=== PATIENT | male | born 1955 | race African-American/Black ===

== ENCOUNTER 2016-11-29 07:42 | Inpatient (IN) | payer OTHER ==
[~2016-11-29] VITALS: Ht 182.9 cm; Wt 79.1 kg
--- NOTE | 2016-11-29 08:06 | PHYS DOC ---
Past Medical History Past Medical History: A-Fib, CHF, Hypertension Adult General Chief Complaint Chief Complaint: SHORTNESS OF BREATH HPI HPI Patient is a 61 year old who presents emergency department stating that he's been having shortness of air for the last 2 weeks. He states that he did see Dr. Rodriguez in regards to shortness of air. He states that he was told if the shortness of air became worse to come to the emergency department. Patient states he also feels as though his heart is irregular. He states that he has a history of A. fib that has a pacemaker and defibrillator. Patient also states he has a history of congestive heart failure. He does state that he's had swelling in his lower extremities he is unsure of his had a weight gain as he does not want to wait. Patient denies fever, chills or any nausea vomiting. Patient states she just feels that he cannot get a deep breath. He states that he is unable to walk more than 3 feet without having increased shortness of air. Patient is able to talk in 3-4 word sentences. Review of Systems Review of Systems Constitutional: Denies fever or chills [] Eyes: Denies change in visual acuity, redness, or eye pain [] HENT: Denies nasal congestion or sore throat [] Respiratory: Denies cough C/o shortness of breath [] Cardiovascular: No additional information not addressed in HPI [] GI: Denies abdominal pain, nausea, vomiting, bloody stools or diarrhea [] : Denies dysuria or hematuria [] Musculoskeletal: Denies back pain or joint pain [] Integument: Denies rash or skin lesions [] Neurologic: Denies headache, focal weakness or sensory changes [] Current Medications Current Medications Current Medications Medications (Trade) Dose Ordered Sig/David Start Time Stop Time Status Last Admin Dose Admin Albuterol/ Ipratropium (Duoneb) 3 ml 1X ONCE 11/29/16 08:30 11/29/16 08:31 DC Furosemide (Lasix) 40 mg 1X ONCE 11/29/16 09:15 11/29/16 09:16 DC 11/29/16 09:44 40 MG Methylprednisolone Sodium Succinate (Solu-Medrol 125mg Vial) 125 mg 1X ONCE 11/29/16 09:30 11/29/16 09:31 DC 11/29/16 09:44 125 MG Allergies Allergies Allergies Coded Allergies Type Severity Reaction Last Updated Verified No Known Drug Allergies 11/29/16 No Physical Exam Physical Exam Constitutional: Well developed, well nourished, no acute distress, non-toxic appearance. [] HENT: Normocephalic, atraumatic, bilateral external ears normal, oropharynx moist, no oral exudates, nose normal. [] Eyes: PERRLA, EOMI, conjunctiva normal, no discharge. [] Neck: Normal range of motion, no tenderness, supple, no stridor. [] Cardiovascular:Heart rate regular rhythm, no murmur [] Lungs & Thorax: Bilateral breath sounds decreased bilateral lower lobes with wheezes noted in mid lungs Abdomen: Bowel sounds normal, soft, no tenderness, no masses, no pulsatile masses. [] Skin: Warm, dry, no erythema, no rash. [] Back: No tenderness Extremities: No tenderness, no cyanosis, no clubbing, ROM intact. Peripheral pulses 2+ cap refill brisk < 2 seconds, no edema noted in lower extremities Neurologic: Alert and oriented X 3, normal motor function, normal sensory function, no focal deficits noted. [] Psychologic: Affect normal, judgement normal, mood normal. [] Current Patient Data Vital Signs Vital Signs Date Time Temp Pulse Resp B/P Pulse Ox O2 Delivery O2 Flow Rate FiO2 11/29/16 09:00 98 20 134/83 94 Room Air 11/29/16 07:55 97.3 97.3 Lab Values Laboratory Tests Test 11/29/16 08:12 White Blood Count 8.4x10^3/uL (4.0-11.0) Red Blood Count 5.12x10^6/uL (4.30-5.70) Hemoglobin 16.3g/dL (13.0-17.5) Hematocrit 50.5% (39.0-53.0) Mean Corpuscular Volume 99fL (79-100) Mean Corpuscular Hemoglobin 32pg (25-35) Mean Corpuscular Hemoglobin Concent 32g/dL (31-37) Red Cell Distribution Width 14.3% (11.5-14.5) Platelet Count 237x10^3/uL (140-400) Neutrophils (%) (Auto) 69% (31-73) Lymphocytes (%) (Auto) 19% (24-48) L Monocytes (%) (Auto) 8% (0-9) Eosinophils (%) (Auto) 4% (0-3) H Basophils (%) (Auto) 1% (0-3) Neutrophils # (Auto) 5.8x10^3uL (1.8-7.7) Lymphocytes # (Auto) 1.6x10^3/uL (1.0-4.8) Monocytes # (Auto) 0.6x10^3/uL (0.0-1.1) Eosinophils # (Auto) 0.3x10^3/uL (0.0-0.7) Basophils # (Auto) 0.1x10^3/uL (0.0-0.2) Sodium Level 143mmol/L (136-145) Potassium Level 4.3mmol/L (3.5-5.1) Chloride Level 105mmol/L (98-107) Carbon Dioxide Level 30mmol/L (21-32) Anion Gap 8 (6-14) Blood Urea Nitrogen 19mg/dL (8-26) Creatinine 1.4mg/dL (0.7-1.3) H Estimated GFR (Cockcroft-Gault) 51.9 BUN/Creatinine Ratio 14 (6-20) Glucose Level 121mg/dL (70-99) H Calcium Level 9.4mg/dL (8.5-10.1) Total Bilirubin 1.2mg/dL (0.2-1.0) H Aspartate Amino Transferase (AST) 27U/L (15-37) Alanine Aminotransferase (ALT) 32U/L (16-63) Alkaline Phosphatase 107U/L (46-116) Creatine Kinase 228U/L (39-308) Creatine Kinase MB (Mass) 2.8ng/mL (0.0-3.6) Creatine Kinase MB Relative Index 1.2% (0-4) Troponin I Quantitative 0.031ng/mL (0.000-0.055) LN-Rqh-O-Type Natriuretic Peptide 3383pg/mL (0-124) H Total Protein 7.8g/dL (6.4-8.2) Albumin 3.6g/dL (3.4-5.0) Albumin/Globulin Ratio 0.9 (1.0-1.7) L Laboratory Tests 11/29/16 08:12 Laboratory Tests 11/29/16 08:12 EKG EKG EKG completed at 0805 with SR noted with LVH, no STEMI per Dr Rivers[] Radiology/Procedures Radiology/Procedures [] Course & Med Decision Making Course & Med Decision Making Pertinent Labs and Imaging studies reviewed. (See chart for details) CXR results with cardiomegaly, CMP with slightly elevated creat 1.4 BNP 3383. 0915 Spoke with Kena GROVER for Dr Cummings who agrees with lasix [address] Henry in regards to admission recommendations for solu medrol. 0935 patient's breath sounds continued to have wheezes although slightly decreased. Spoke with patient and family in regards to DNR status. He would prefer not to be put on any type of the ventilator devices. They do state that they would like to have CPR well as well as they are capable of getting him back. [] Dragon Disclaimer Dragon Disclaimer This electronic medical record was generated, in whole or in part, using a voice recognition dictation system. Departure Departure Impression: Primary Impression: Dyspnea Disposition: ADMITTED INPATIENT Admitting Physician: Phillip Henry (also spoke with Kena GROVER for Dr Cummings) Condition: STABLE Referrals: CHARISSE LEE ETIQUETTE TEACHER (PCP) IRMA LUND NP Nov 29, 2016 08:06
[2016-11-29 08:21] LABS: BASO # 0.1 x10^3/uL (0.0-0.2); BASO % 1 % (0-3); EOS % 4 % (0-3); HEMATOCRIT 50.5 % (39.0-53.0); HEMOGLOBIN 16.3 g/dL (13.0-17.5); LYMPH # 1.6 x10^3/uL (1.0-4.8); LYMPH % 19 % (24-48); MEAN CORPUSCULAR HEMOGLOBIN 32 pg (25-35); MEAN CORPUSCULAR HGB CONC 32 g/dL (31-37); MEAN CORPUSCULAR VOLUME 99 fL (79-100); MONO % 8 % (0-9); NEUT % 69 % (31-73); PLATELET COUNT 237 x10^3/uL (140-400); RED BLOOD COUNT 5.12 x10^6/uL (4.30-5.70); RED CELL DISTRIBUTION WIDTH 14.3 % (11.5-14.5); WHITE BLOOD COUNT 8.4 x10^3/uL (4.0-11.0)
[2016-11-29 08:29] LABS: CALCIUM 9.4 mg/dL (8.5-10.1); CREATININE 1.4 mg/dL (0.7-1.3); GFR 51.9; POTASSIUM 4.3 mmol/L (3.5-5.1)
[2016-11-29] MEDS ORDERED: IPRATRPIUM/ALBUTEROL 0.5/2.5MG 3 ML NEBU. NEB ONE (08:30)
[2016-11-29 08:35] LABS: ALBUMIN 3.6 g/dL (3.4-5.0); ALBUMIN/GLOBULIN RATIO 0.9 (1.0-1.7); TOTAL BILIRUBIN 1.2 mg/dL (0.2-1.0); TOTAL PROTEIN 7.8 g/dL (6.4-8.2)
[2016-11-29 08:43] LABS: CKMB INDEX 1.2 % (0-4); CKMB MASS 2.8 ng/mL (0.0-3.6)
--- NOTE | 2016-11-29 08:58 | EKG ---
[facility] [address] [place] [address] Test Date: 2016-11-29 Test Time: 08:05:47 Pat Name: ALEXIA ELLIOTT Department: Room: Gender: M Nut [employer]pper: : 1955 Requested By: IRMA LUND Order Number: [id number] Reading MD: Mukesh Angel Measurements Intervals [place] Rate: 91 P: -2 AK: 120 QRS: -21 QRSD: 94 T: 68 QT: 388 QTc: 479 Interpretive Statements SINUS RHYTHM VENTRICULAR PREMATURE COMPLEX(ES) LEFT ATRIAL ABNORMALITY LEFTWARD AXIS CONSIDER LEFT VENTRICULAR HYPERTROPHY QRS(T) CONTOUR ABNORMALITY CONSIDER ANTEROSEPTAL MYOCARDIAL DAMAGE PROLONGED QT RI6.01 Unconfirmed report No previous ECG available for comparison Electronically Signed On 12-04-2016 13:34:03 RUBBER TESTER by Mukesh Angel
--- NOTE | 2016-11-29 09:03 | RAD ---
Portable chest, 11/29/2016: History: Shortness of breath, dyspnea A left-sided transvenous pacemaker is in place with 2 leads extending into the right heart. The heart is mildly enlarged. The pulmonary vascularity is within normal limits. No pulmonary infiltrate is seen. There is no evidence of pleural fluid. A surgical screw is projected over the coracoid region of the left scapula. IMPRESSION: 1. Mild cardiomegaly. 2. No acute abnormality is detected.
[2016-11-29] MEDS ORDERED: FUROSEMIDE 40 MG/4 ML VIAL IVP ONE (09:15)
[2016-11-29] MEDS ORDERED: methylPREDNISolone SOD SUCC PF 125 MG/2 ML VIAL. IV ONE (09:30)
--- NOTE | 2016-11-29 10:00 | PDOC2 ---
CARDIAC CONSULT DATE OF CONSULT Date of Consult DATE: 11/29/16 TIME: 09:50 REASON FOR CONSULT Reason for Consult: dyspnea, hx CHF, hx AFIB REFERRING PHYSICIAN Referring Physician: Dr. Conner SOURCE Source: Chart review, Patient HISTORY OF PRESENT ILLNESS HISTORY OF PRESENT ILLNESS This is a 61 yo male, with history of nonischemic cardiomyopathy s/p AICD implantation, who presented with complaints of shortness of breath x 1 week. Associated with cough and orthopnea. Denies any palpitations, dizziness, diaphoresis, LE edema, or recent illness/fevers. Patient was recently seen in our office with complaints of SOA; Lasix and potassium were increased. Patient reports symptoms persisted. Worse over last 24hrs. Contacted office; referred to ED. Also c/o left chest "burning" with ambulation- feels like he cath take a deep breath. Resolves with rest. These symptoms have been occurring over the last month. H/o lung CA s/p radiation therapy. Follows with [facility]. PAST MEDICAL HISTORY Cardiovascular: AFIB, CAD, CHF, HTN, Hyperlipidemia, Other (NICM s/p AICD) Pulmonary: COPD, Other (lung CA) CENTRAL NERVOUS SYSTEM: Other (traumatic brain injury ) GI: GERD Heme/Onc: No pertinent hx, Other (DVT) Hepatobiliary: No pertinent hx Psych: Anxiety, Depression, Other (PTSD) Musculoskeletal: Osteoarthritis Infectious disease: No pertinent hx ENT: No pertinent hx Renal/: Chronic renal insuff Endocrine: Diabetes Dermatology: No pertinent hx PAST SURGICAL HISTORY Past Surgical History Hernia Repair, Tonsillectomy, Other (septoplasty; left shoulder surgery; cardiac cath) FAMILY HISTORY Family History: Heart Disease, Hypertension SOCIAL HISTORY Smoke: Quit (last year ) ALCOHOL: none Drugs: None Lives: with Family CURRENT MEDICATIONS CURRENT MEDICATIONS Current Medications Medications (Trade) Dose Ordered Sig/David Route PRN Reason Start Time Stop Time Status Last Admin Dose Admin Furosemide (Lasix) 40 mg 1X ONCE IVP 11/29/16 09:15 11/29/16 09:16 DC 11/29/16 09:44 Methylprednisolone Sodium Succinate (Solu-Medrol 125mg Vial) 125 mg 1X ONCE IV 11/29/16 09:30 11/29/16 09:31 DC 11/29/16 09:44 ALLERGIES ALLERGIES: Coded Allergies: No Known Drug Allergies (Unverified , 3/1/17) ROS Review of System 14 point ROS conducted with pertinent positives noted above in HPI. PHYSICAL EXAM General: Alert, Oriented X3, Cooperative, mild distress, Other (poor dentition ) HEENT: Atraumatic, Mucous membr. moist/pink Lungs: Other (expiratory wheezes) Heart: Regular rate, Normal S1, Normal S2 Abdomen: Soft, No tenderness Extremities: No cyanosis, No edema, Normal pulses Skin: No breakdown, No significant lesion Neuro: Normal speech, Sensation intact Psych/Mental Status: Mental status NL, Other (flat affect ) MUSCULOSKELETAL: Osteoarthritic changes both hands VITALS VITALS Vital Signs Date Time Temp Pulse Resp B/P Pulse Ox O2 Delivery O2 Flow Rate FiO2 11/29/16 09:00 98 20 134/83 94 Room Air 11/29/16 07:55 97.3 97.3 LABS Lab: Laboratory Tests Test 11/29/16 08:12 White Blood Count 8.4x10^3/uL (4.0-11.0) Red Blood Count 5.12x10^6/uL (4.30-5.70) Hemoglobin 16.3g/dL (13.0-17.5) Hematocrit 50.5% (39.0-53.0) Mean Corpuscular Volume 99fL (79-100) Mean Corpuscular Hemoglobin 32pg (25-35) Mean Corpuscular Hemoglobin Concent 32g/dL (31-37) Red Cell Distribution Width 14.3% (11.5-14.5) Platelet Count 237x10^3/uL (140-400) Neutrophils (%) (Auto) 69% (31-73) Lymphocytes (%) (Auto) 19% (24-48) Monocytes (%) (Auto) 8% (0-9) Eosinophils (%) (Auto) 4% (0-3) Basophils (%) (Auto) 1% (0-3) Neutrophils # (Auto) 5.8x10^3uL (1.8-7.7) Lymphocytes # (Auto) 1.6x10^3/uL (1.0-4.8) Monocytes # (Auto) 0.6x10^3/uL (0.0-1.1) Eosinophils # (Auto) 0.3x10^3/uL (0.0-0.7) Basophils # (Auto) 0.1x10^3/uL (0.0-0.2) Sodium Level 143mmol/L (136-145) Potassium Level 4.3mmol/L (3.5-5.1) Chloride Level 105mmol/L (98-107) Carbon Dioxide Level 30mmol/L (21-32) Anion Gap 8 (6-14) Blood Urea Nitrogen 19mg/dL (8-26) Creatinine 1.4mg/dL (0.7-1.3) Estimated GFR (Cockcroft-Gault) 51.9 BUN/Creatinine Ratio 14 (6-20) Glucose Level 121mg/dL (70-99) Calcium Level 9.4mg/dL (8.5-10.1) Total Bilirubin 1.2mg/dL (0.2-1.0) Aspartate Amino Transf (AST/SGOT) 27U/L (15-37) Alanine Aminotransferase (ALT/SGPT) 32U/L (16-63) Alkaline Phosphatase 107U/L (46-116) Creatine Kinase 228U/L (39-308) Creatine Kinase MB (Mass) 2.8ng/mL (0.0-3.6) Creatine Kinase MB Relative Index 1.2% (0-4) Troponin I Quantitative 0.031ng/mL (0.000-0.055) UJ-Izo-I-Type Natriuretic Peptide 3383pg/mL (0-124) Total Protein 7.8g/dL (6.4-8.2) Albumin 3.6g/dL (3.4-5.0) Albumin/Globulin Ratio 0.9 (1.0-1.7) ECHOCARDIOGRAM ECHOCARDIOGRAM <Conclusion> Moderate to severe global left ventricular systolic dysfunction. The Ejection Fraction is estimated at 25%. Doppler and Color Flow revealed mild aortic regurgitation. Doppler and Color-flow revealed mild mitral regurgitation. Doppler and Color Flow revealed trace tricuspid regurgitation. The PA pressure was estimated at 35 mmHg. There is no evidence of significant pericardial effusion. DATE: 03/16/15 968 ASSESSMENT/PLAN ASSESSMENT/PLAN 1. Acute on chronic systolic heart failure NT Pro BNP elevated. CXR with cardiomegaly; no significant fluid accumulation IV lasix given in ED. Continue diuresis with monitoring of labs 2. Acute respiratory failure with COPD recommend pulmonary consult 3. Chest Pain, with typical and atypical features initial trop negative- continue with series ASA, check lipids given exertional symptoms, could consider for MPI when acute issues resolve 4. Non ischemic cardiomyopathy s/p AICD recent device check with normal function 03/2015 echo- EF 25%. Add Coreg for optimization. Consider ADDI will repeat echo 5. AFIB maintaining SR ASA for stroke prophylaxis 6. Hyperlipidemia check lipids continue statin 7. Hypertension controlled 8. CAD non-obstruction CAD per cath 2013 9. Lung CA s/p radiation therapy 10. CKD Problems: DOMONIQUE AVILEZ APRN Nov 29, 2016 10:00
[2016-11-29 10:51] VITALS: BP 124/83
[2016-11-29 11:00] VITALS: BP 124/83
[2016-11-29] MEDS ORDERED: OXYC1TAB9 PO (11:32)
[2016-11-29] MEDS ORDERED: FURO20TA3 PO (11:32)
[2016-11-29] MEDS ORDERED: FLUT9.9S NS (11:32)
[2016-11-29] MEDS ORDERED: ISOS30TA4 PO (11:32)
[2016-11-29] MEDS ORDERED: OXYC20TA34 PO (11:32)
[2016-11-29] MEDS ORDERED: OMEP20TA63 PO (13:13)
[2016-11-29] MEDS ORDERED: OXYC-316 PO (13:13)
[2016-11-29] MEDS ORDERED: TIZA4TAB PO (13:13)
[2016-11-29] MEDS ORDERED: ATOR10TA PO (13:13)
[2016-11-29] MEDS ORDERED: POTA10CA PO (13:13)
[2016-11-29] MEDS ORDERED: BREO ELLIPTA 21 EACH IH (13:13)
[2016-11-29] MEDS ORDERED: NITR0.4T SL (13:13)
[2016-11-29] MEDS ORDERED: ALBU2.5V14 NEB (13:13)
[2016-11-29] MEDS ORDERED: PROM6.25 PO (13:13)
[2016-11-29] MEDS ORDERED: OLAN20TA3 PO (13:13)
[2016-11-29] MEDS ORDERED: ASPI-482 PO (13:13)
[2016-11-29] MEDS ORDERED: VALIUM10 MG PO (13:13)
[2016-11-29] MEDS ORDERED: PREG150C PO (13:13)
[2016-11-29] MEDS: IPRATRPIUM/ALBUTEROL 0.5/2.5MG 3 ML NEBU. NEB SCH ×3 (13:39→23:37)
[2016-11-29] MEDS: ENOXAPARIN 40 MG/0.4 ML DISP.SYRIN. SQ SCH (14:04)
[2016-11-29 14:39] VITALS: BP 116/75
[2016-11-29] MEDS: ASPIRIN ENTERIC COATED 81 MG TABLET.DR. PO SCH (16:36)
[2016-11-29] MEDS: CARVEDILOL 3.125 MG TABLET PO SCH (16:36)
[2016-11-29] MEDS: OXYCODONE/APAP 7.5/325 TABLET. PO SCH ×2 (16:36→23:46)
[2016-11-29] MEDS: ISOSORBIDE MONONITRATE ER 30 MG TAB.ER.24H PO SCH (16:36)
[2016-11-29] MEDS ORDERED: OXYC10TA PO (16:41)
--- NOTE | 2016-11-29 16:43 | CARD ---
APPROVED REPORT EXAM: Two-dimensional and M-mode echocardiogram with Doppler and color Doppler. Other Information Quality : Average Rhythm : Pacemaker INDICATION Congestive Heart Failure 2D DIMENSIONS RVDd2.9 (2.9-3.5cm)Left Atrium(2D)4.6 (1.6-4.0cm) IVSd1.0 (0.7-1.1cm)Aortic Root(2D)3.1 (2.0-3.7cm) LVDd7.1 (3.9-5.9cm)LVOT Diameter2.2 (1.8-2.4cm) PWd1.0 (0.7-1.1cm)LVDs5.9 (2.5-4.0cm) SV90.8 ml Aortic Valve AoV Peak Siva.135.5cm/sAoV VTI20.4cm AO Peak GR.7.3mmHgLVOT Peak Siva.77.9cm/s LVOT VTI 13.87cmAO Mean GR.4mmHg FELECIA (VMAX)2.01zy8NAB (VTI)2.55cm2 Mitral Valve MV E Tswgywed47.6cm/sMV DECEL [id number] MV A Agvsgdoo49.2cm/sMV E Mean Gr.2mmHg MV ZPN47jkV/A Ratio1.3 MV A Ularjfdl412ftEIY (PHT)4.82cm2 TDI E/Lateral E'20.7E/Medial E'21.1 Pulmonary Valve PV Peak Webrbnav24.6cm/sPV Peak Grad.3mmHg RVOT VTI11.7cm Tricuspid Valve TR P. Ormahghj210fl/sRAP XTBQPDIX1evQp TR Peak Gr.80xjVfXLTC79ydFs Pulmonary Vein S1 Hazcnxjc84.5cm/sD2 Lgrljxxs17.2cm/s LEFT VENTRICLE The Left Ventricle is moderately dilated. There is normal left ventricular wall thickness. Left ventr icle systolic function is severely impaired. The Ejection Fraction is 20-25%. There is global hypokin esis of the left ventricle. Transmitral Doppler flow pattern is Grade II-pseudonormal filling dynamic s. RIGHT VENTRICLE The right ventricle is normal size. The right ventricular systolic function is normal. There is a pac emaker/ICD lead seen in the RV/RA. ATRIA The left atrium is mildly dilated. The right atrium size is normal. The interatrial septum is intact with no evidence for an atrial septal defect or patent foramen ovale as noted on 2-D or Doppler imagi ng. AORTIC VALVE The aortic valve is normal in structure and function. The aortic valve is trileaflet. Doppler and Col or Flow revealed no significant aortic regurgitation. There is no significant aortic valvular stenosi s. MITRAL VALVE The mitral valve leaflets are thickened. There is no mitral valve stenosis. Doppler and Color Flow re vealed mild mitral regurgitation. TRICUSPID VALVE The tricuspid valve is normal in structure and function. Doppler and Color Flow revealed mild to mode rate tricuspid regurgitation. The PA pressure was estimated at 48 mmHg. There is no tricuspid valve s tenosis. PULMONIC VALVE The pulmonic valve is not well visualized. Doppler and Color Flow revealed mild pulmonic valvular reg urgitation. There is no pulmonic valvular stenosis. GREAT VESSELS The aortic root is normal in size. The IVC is normal in size and collapses >50% with inspiration. PERICARDIAL EFFUSION There is no evidence of significant pericardial effusion. Critical Notification Date: 11/29/2016 Time: 15:34 Other Discipline : Mery Boss APRN Critical Value: Yes <Conclusion> The Left Ventricle is moderately dilated. Left ventricle systolic function is severely impaired. The Ejection Fraction is 20-25%. There is global hypokinesis of the left ventricle. There is a pacemaker/ICD lead seen in the RV/RA. There is no significant aortic valvular stenosis. Doppler and Color Flow revealed no significant aortic regurgitation. Doppler and Color Flow revealed mild mitral regurgitation. Doppler and Color Flow revealed mild to moderate tricuspid regurgitation. The PA pressure was estimated at 48 mmHg.
[2016-11-29] MEDS ORDERED: ALBUTEROL SULFATE 2.5 MG/3 ML NEBU. NEB PRN (16:45)
[2016-11-29] MEDS: PROMETHAZINE 6.25 MG/5 ML SYRUP. PO SCH ×2 (17:22→21:01)
[2016-11-29] MEDS ORDERED: OXYCODONE IR 5 MG TABLET. PO PRN (18:00)
[2016-11-29 19:23] VITALS: BP 197/90
[2016-11-29 19:31] VITALS: BP 102/66
--- NOTE | 2016-11-29 19:32 | ACF ---
Admission Forms Criteria HEART FAILURE: COMMON COMPLICATIONS Clinical Indications for Inpatient Care (Place 'X' for any and all applicable criteria): Ongoing inpatient care may be indicated for heart failure with ANY ONE of the following (1)(2)(3)(4)(5): [ ]I. Ongoing need for care for primary condition requiring frequent therapy adjustments because of changes in cardiac function (eg, drug dosage changes for drugs that are renally metabolized) [ ]II. New-onset heart failure [ ]III. Heart failure with decreased urine output not responsive to attempts to optimize volume status [ ]IV. Acute cardiac ischemia causing or associated with failure [X]V. Complications of heart failure, including ANY ONE of the following: [ ]a) Pericardial effusion [ ]b) Symptomatic pleural effusion [ ]c) O2 saturation <90% or PO2 < 60 mm Hg (8.0 kPa) on room air or require baseline supplemental O2 [ ]d) Tachypnea [X]e) Dyspnea [ ]f) Syncope [ ]g) Change in mental status [ ]h) Acute renal insufficiency that is severe (reduction of more than 50% in estimated glomerular filtration rate from baseline) or progressive reduction of more than 25% in estimated glomerular filtration rate from baseline, with creatinine continuing to rise) [ ]i) Hemodynamic instability [ ]j) Anasarca [ ]k) Clinically significant metabolic abnormalities due to heart failure (eg, new-onset metabolic acidosis) Extended stay beyond goal length of stay for primary condition may be needed until ALL of the following are present(1)(3): [ ]a) Stable and effective diuretic regimen established (or patient on stable dialysis regimen if in chronic renal failure) [ ]b) Breathing comfortably at rest [ ]c) Saturation of arterial oxygen greater than 90% or at acceptable baseline [ ]d) Pulmonary edema absent or improved [ ]e) Hemodynamic stability [ ]f) Volume status acceptable on oral medication [ ]g) Peripheral or sacral edema absent or improved [ ]h) Renal function stable and manageable at a lower level of care [ ]i) Complications (eg, pleural effusion) resolved or manageable at a lower level of care [ ]j) Patient or caregiver has received written discharge instructions or educational material addressing activity level, diet, discharge medications, follow-up appointment, weight monitoring, and what to do if symptoms worsen The original [facility] content created by [employer] has been revised. The portions of the content which have been revised are identified through the use of italic text or in bold, and [facility] has neither reviewed nor approved the modified material.All other unmodified content is copyright [facility]. Please see references footnoted in the original [facility] edition 2016 Admission Criteria Met?: Yes NATALEE HOROWITZ Nov 29, 2016 19:32
[2016-11-29] MEDS: BUDESONIDE 0.5 MG/2 ML NEBU NEB SCH (19:48)
[2016-11-29] MEDS ORDERED: OLANZAPINE 5 MG TABLET. PO SCH (21:00)
[2016-11-29] MEDS ORDERED: ATORVASTATIN CALCIUM 10 MG TABLET. PO SCH (21:00)
[2016-11-29] MEDS ORDERED: DIAZEPAM 5 MG TABLET PO SCH (21:00)
[2016-11-29] MEDS: tiZANidine 4 MG TABLET. PO SCH (21:02)
[2016-11-29] MEDS: OXYCODONE ER 10 MG TAB.ER.12H. PO SCH (21:02)
[2016-11-29 23:10] VITALS: BP 94/48
[2016-11-30 03:04] VITALS: BP 103/62
[2016-11-30 04:10] LABS: BASO % 0 % (0-3); EOS % 0 % (0-3); HEMOGLOBIN 14.8 g/dL (13.0-17.5); LYMPH # 0.9 x10^3/uL (1.0-4.8); LYMPH % 7 % (24-48); MEAN CORPUSCULAR HEMOGLOBIN 32 pg (25-35); MEAN CORPUSCULAR HGB CONC 33 g/dL (31-37); MEAN CORPUSCULAR VOLUME 96 fL (79-100); MONO % 5 % (0-9); NEUT % 87 % (31-73); PLATELET COUNT 248 x10^3/uL (140-400); RED BLOOD COUNT 4.68 x10^6/uL (4.30-5.70); WHITE BLOOD COUNT 12.3 x10^3/uL (4.0-11.0)
[2016-11-30 04:32] LABS: CHOLESTEROL/HDL RATIO 2.9
[2016-11-30] MEDS: OXYCODONE/APAP 7.5/325 TABLET. PO SCH (06:00)
[2016-11-30 06:34] LABS: PLT ESTIMATE ADEQUATE (ADEQUATE)
[2016-11-30] MEDS ORDERED: PANTOPRAZOLE 40 MG TABLET. PO SCH (07:30)
[2016-11-30 07:57] VITALS: BP 87/51
[2016-11-30] MEDS: BUDESONIDE 0.5 MG/2 ML NEBU NEB SCH (08:00)
[2016-11-30] MEDS ORDERED: POTASSIUM CHLORIDE 20 MEQ TABLET.ER. PO SCH (08:00)
[2016-11-30] MEDS: CARVEDILOL 3.125 MG TABLET PO SCH (08:00)
[2016-11-30] MEDS: IPRATRPIUM/ALBUTEROL 0.5/2.5MG 3 ML NEBU. NEB SCH ×2 (08:01→13:40)
[2016-11-30] MEDS: OXYCODONE ER 10 MG TAB.ER.12H. PO SCH (09:00)
[2016-11-30] MEDS: tiZANidine 4 MG TABLET. PO SCH ×2 (09:00→14:00)
[2016-11-30] MEDS ORDERED: FUROSEMIDE 20 MG TABLET PO SCH (09:00)
[2016-11-30] MEDS: ISOSORBIDE MONONITRATE ER 30 MG TAB.ER.24H PO SCH (09:00)
[2016-11-30] MEDS ORDERED: NON FORMULARY ITEM (Potassium Chloride 20 MEQ) PO SCH (09:00)
[2016-11-30] MEDS ORDERED: FLUTICASONE 50MCG/NASAL SPRAY 16GM BOTTLE. NS SCH (09:00)
[2016-11-30] MEDS ORDERED: FUROSEMIDE 40 MG/4 ML VIAL IVP SCH (09:00)
[2016-11-30] MEDS: PROMETHAZINE 6.25 MG/5 ML SYRUP. PO SCH ×2 (09:00→13:00)
[2016-11-30] MEDS ORDERED: PREGABALIN 75 MG CAPSULE PO SCH (09:00)
[2016-11-30 09:11] LABS: ALBUMIN/GLOBULIN RATIO 0.9 (1.0-1.7); CALCIUM 8.7 mg/dL (8.5-10.1); CREATININE 1.4 mg/dL (0.7-1.3); GFR 62.8; POTASSIUM 4.6 mmol/L (3.5-5.1); TOTAL BILIRUBIN 0.9 mg/dL (0.2-1.0); TOTAL PROTEIN 6.5 g/dL (6.4-8.2)
[2016-11-30] MEDS: ASPIRIN ENTERIC COATED 81 MG TABLET.DR. PO SCH (09:15)
[2016-11-30] MEDS ORDERED: OLAN20TA3 PO (09:20)
[2016-11-30 10:40] VITALS: BP 99/61
--- NOTE | 2016-11-30 13:05 | PDOC ---
CARDIO Progress Notes Date and Time Date of Service 11/30/16 Time of Evaluation 1130 Vitals Vitals Vital Signs Date Time Temp Pulse Resp B/P Pulse Ox O2 Delivery O2 Flow Rate FiO2 11/30/16 10:40 97.4 88 18 99/61 95 Room Air 97.4 11/30/16 03:04 2.0 Weight Weight [ ] Input and Output Intake and Output Intake and Output 11/30/16 07:00 Intake Total 1160 ml Balance 1160 ml Intake Oral 1160 ml # Voids 1 Laboratory Labs Laboratory Tests Test 11/29/16 16:34 11/29/16 20:40 11/30/16 03:35 11/30/16 08:12 Glucose (Fingerstick) 211mg/dL (70-99) 182mg/dL (70-99) 133mg/dL (70-99) White Blood Count 12.3x10^3/uL (4.0-11.0) Red Blood Count 4.68x10^6/uL (4.30-5.70) Hemoglobin 14.8g/dL (13.0-17.5) Hematocrit 45.0% (39.0-53.0) Mean Corpuscular Volume 96fL (79-100) Mean Corpuscular Hemoglobin 32pg (25-35) Mean Corpuscular Hemoglobin Concent 33g/dL (31-37) Red Cell Distribution Width 14.0% (11.5-14.5) Platelet Count 248x10^3/uL (140-400) Neutrophils (%) (Auto) 87% (31-73) Lymphocytes (%) (Auto) 7% (24-48) Monocytes (%) (Auto) 5% (0-9) Eosinophils (%) (Auto) 0% (0-3) Basophils (%) (Auto) 0% (0-3) Neutrophils # (Auto) 10.7x10^3uL (1.8-7.7) Lymphocytes # (Auto) 0.9x10^3/uL (1.0-4.8) Monocytes # (Auto) 0.6x10^3/uL (0.0-1.1) Eosinophils # (Auto) 0.0x10^3/uL (0.0-0.7) Basophils # (Auto) 0.0x10^3/uL (0.0-0.2) Segmented Neutrophils % 90% (35-66) Lymphocytes % 6% (24-48) Monocytes % 3% (0-10) Metamyelocytes % 1% (0-0) Platelet Estimate Adequate (ADEQUATE) Sodium Level 139mmol/L (136-145) Potassium Level 4.6mmol/L (3.5-5.1) Chloride Level 104mmol/L (98-107) Carbon Dioxide Level 27mmol/L (21-32) Anion Gap 8 (6-14) Blood Urea Nitrogen 27mg/dL (8-26) Creatinine 1.4mg/dL (0.7-1.3) Estimated GFR (Cockcroft-Gault) 62.8 BUN/Creatinine Ratio 19 (6-20) Glucose Level 135mg/dL (70-99) Calcium Level 8.7mg/dL (8.5-10.1) Total Bilirubin 0.9mg/dL (0.2-1.0) Aspartate Amino Transf (AST/SGOT) 19U/L (15-37) Alanine Aminotransferase (ALT/SGPT) 26U/L (16-63) Alkaline Phosphatase 90U/L (46-116) Total Protein 6.5g/dL (6.4-8.2) Albumin 3.0g/dL (3.4-5.0) Albumin/Globulin Ratio 0.9 (1.0-1.7) Triglycerides Level 26mg/dL (0-150) Cholesterol Level 163mg/dL (0-200) LDL Cholesterol, Calculated 102mg/dL (0-100) VLDL Cholesterol, Calculated 5mg/dL (0-40) HDL Cholesterol 56mg/dL (40-60) Cholesterol/HDL Ratio 2.9 Test 11/30/16 11:31 Glucose (Fingerstick) 133mg/dL (70-99) Physical Exam HEENT: Neck Supple W Full Motion, Other (poor dentition) Chest: Symmetric LUNGS: Clear to Auscultation Heart: S1S2, RRR Abdomen: Soft N/T Extremities: No Edema, No Calf Tenderness Neurology: alert, oriented, follow commands Assessment Assessment 1. Acute on chronic systolic heart failure clinically compensated. resume oral diuresis weight monitor along with dietary Na restriction d/w patient and . January d/c from cardiac standpoint. patient to f/u in our office as previously scheduled. 2. Acute respiratory failure with COPD 3. Chest Pain, with typical and atypical features trop negative- AMI ruled out. will schedule for outpatient MPI. 4. Non ischemic cardiomyopathy s/p AICD recent device check with normal function repeat echo with essentially no change; EF 20-25% continue optimization therapy no ADDI with RI 5. AFIB maintaining SR ASA for stroke prophylaxis 6. Hyperlipidemia LDL 102 continue statin 7. Hypertension low-normotensive. Narcotics discontinued 8. CAD non-obstruction CAD per cath 2013 9. Lung CA s/p radiation therapy 10. CKD DOMONIQUE AVILEZ APRN Nov 30, 2016 13:05
--- NOTE | 2016-11-30 14:00 | HP ---
ADMIT DATE: 11/29/2016 ADMITTING DIAGNOSIS: Kvtsn-[id number] congestive heart failure. SECONDARY DIAGNOSIS: Exacerbation of chronic obstructive pulmonary disease. HISTORY OF THE PRESENT ILLNESS AND HOSPITAL COURSE: This patient is a 61-year-old -[place] male with multiple medical issues who came in with increasing shortness of breath. He was evaluated and treated as an outpatient by Cardiology which failed with increased shortness of breath, and Cardiology recommended ER evaluation and admission. The patient does have a very low ejection fraction by history. The patient was mildly hypoxic in the Emergency Room, but still remains sats over 90. He was in mild respiratory distress. BNP showed evidence of congestive heart failure, and chest x-ray showed mild cardiomegaly . Due to these findings, he was admitted for further evaluation, Cardiology consultation, and diuresis. The patient was given breathing treatments and one dose of IV steroids for his COPD exacerbation. The patient was also given IV Lasix and had good urine output, but this was unable to be documented because the patient was ambulatory enough to go to the bathroom, and measurements were not obtained accurately. By hospital day of 1, the patient was significantly better stating that he was back to his baseline. The patient was off oxygen and able to tolerate diet. The patient was slightly obtunded due to pain medication treatment as well as a combination of Zyprexa and Valium at bedtime. These will be adjusted, and plans were made for discharge today if okay with Cardiology. PAST MEDICAL HISTORY: Significant for: 1. Non-ischemic cardiomyopathy with documented ejection fraction on this admission of 20% to 25%. 2. COPD. 3. Recurrent atrial fibrillation, now in sinus rhythm. 4. Hyperlipidemia. 5. Hypertension. 6. Lung cancer, status post radiation, undergoing chemotherapy at present. 7. Chronic kidney disease. 8. History of traumatic brain injury. 9. History of deep venous thrombosis. 10. PSVT. 11. History of prostate cancer. PAST SURGICAL HISTORY: Significant for hernia repair, tonsillectomy, and septoplasty in the remote past, left shoulder surgery, at least 1 cardiac catheterization showing mild coronary artery disease, and AICD placement. FAMILY HISTORY: Mother with complications of heart disease. No other history is obtainable. SOCIAL HISTORY: The patient continues to smoke approximately half pack per day. He is . The patient is on disability due to PTSD and traumatic brain injury, prior to heart disease. REVIEW OF SYSTEMS: Negative for nausea, vomiting, diarrhea, cough, or congestion but positive for increasing shortness of breath and mild leg swelling. PHYSICAL EXAMINATION: GENERAL: This is a well-nourished, well-developed, male in no apparent distress on my exam. He is slow to speak and slightly obtunded due to pain and anxiety medication treatment but able to answer questions, and his is in the room, able to answer questions as well. HEENT: Reveals very poor dentition. NECK: Supple, without JVD, or bruits. CARDIAC: Regular rate and rhythm with a grade 2/6 systolic ejection murmur. LUNGS: Clear. ABDOMEN: Soft and nontender. EXTREMITIES: Showed 1+ pulses bilaterally with 1+ nonpitting edema. NEUROLOGIC: Showed no unilateral findings, but slurred speech, possibly due to previous brain injury and/or pain medication, was noted. ASSESSMENT: 1. Acute on chronic systolic congestive heart failure. 2. Chronic obstructive pulmonary disease with acute exacerbation, improved. 3. Nonischemic cardiomyopathy with ejection fraction of 25%. 4. History of atrial fibrillation, now in sinus rhythm. 5. History of lung cancer, followed at for chemotherapy and radiation. 6. Hypertension. 7. Chronic kidney disease, stable. PLAN: To proceed with Cardiology evaluation, diuresis, and pulmonary toilet and discharge to home once oxygenation is stable and the patient able to ambulate. We will decrease Zyprexa to 10 mg daily and remove p.r.n. Percocet, leaving scheduled OxyContin and p.r.n. Immediate-Release oxycodone for pain control and follow up with Dr. Sainz in one week for continued medical monitoring. GILSON PALOMO MD DR: ROSALIND/aiyana JOB#: [id number] / [id number]
[2016-11-30 15:00] VITALS: BP 124/74
[2016-11-30] MEDS: ENOXAPARIN 40 MG/0.4 ML DISP.SYRIN. SQ SCH (15:25)
--- NOTE | 2016-11-30 16:43 | PDOC ---
PULMONARY PROGRESS NOTES Vitals Vital Signs Date Time Temp Pulse Resp B/P Pulse Ox O2 Delivery O2 Flow Rate FiO2 11/30/16 13:41 95 Room Air 11/30/16 10:40 97.4 88 18 99/61 97.4 11/30/16 03:04 2.0 Labs Laboratory Tests Test 11/29/16 08:12 11/29/16 16:34 11/29/16 20:40 11/30/16 03:35 White Blood Count 8.4x10^3/uL (4.0-11.0) 12.3x10^3/uL (4.0-11.0) Red Blood Count 5.12x10^6/uL (4.30-5.70) 4.68x10^6/uL (4.30-5.70) Hemoglobin 16.3g/dL (13.0-17.5) 14.8g/dL (13.0-17.5) Hematocrit 50.5% (39.0-53.0) 45.0% (39.0-53.0) Mean Corpuscular Volume 99fL (79-100) 96fL (79-100) Mean Corpuscular Hemoglobin 32pg (25-35) 32pg (25-35) Mean Corpuscular Hemoglobin Concent 32g/dL (31-37) 33g/dL (31-37) Red Cell Distribution Width 14.3% (11.5-14.5) 14.0% (11.5-14.5) Platelet Count 237x10^3/uL (140-400) 248x10^3/uL (140-400) Neutrophils (%) (Auto) 69% (31-73) 87% (31-73) Lymphocytes (%) (Auto) 19% (24-48) 7% (24-48) Monocytes (%) (Auto) 8% (0-9) 5% (0-9) Eosinophils (%) (Auto) 4% (0-3) 0% (0-3) Basophils (%) (Auto) 1% (0-3) 0% (0-3) Neutrophils # (Auto) 5.8x10^3uL (1.8-7.7) 10.7x10^3uL (1.8-7.7) Lymphocytes # (Auto) 1.6x10^3/uL (1.0-4.8) 0.9x10^3/uL (1.0-4.8) Monocytes # (Auto) 0.6x10^3/uL (0.0-1.1) 0.6x10^3/uL (0.0-1.1) Eosinophils # (Auto) 0.3x10^3/uL (0.0-0.7) 0.0x10^3/uL (0.0-0.7) Basophils # (Auto) 0.1x10^3/uL (0.0-0.2) 0.0x10^3/uL (0.0-0.2) Sodium Level 143mmol/L (136-145) 139mmol/L (136-145) Potassium Level 4.3mmol/L (3.5-5.1) 4.6mmol/L (3.5-5.1) Chloride Level 105mmol/L (98-107) 104mmol/L (98-107) Carbon Dioxide Level 30mmol/L (21-32) 27mmol/L (21-32) Anion Gap 8 (6-14) 8 (6-14) Blood Urea Nitrogen 19mg/dL (8-26) 27mg/dL (8-26) Creatinine 1.4mg/dL (0.7-1.3) 1.4mg/dL (0.7-1.3) Estimated GFR (Cockcroft-Gault) 51.9 62.8 BUN/Creatinine Ratio 14 (6-20) 19 (6-20) Glucose Level 121mg/dL (70-99) 135mg/dL (70-99) Calcium Level 9.4mg/dL (8.5-10.1) 8.7mg/dL (8.5-10.1) Total Bilirubin 1.2mg/dL (0.2-1.0) 0.9mg/dL (0.2-1.0) Aspartate Amino Transf (AST/SGOT) 27U/L (15-37) 19U/L (15-37) Alanine Aminotransferase (ALT/SGPT) 32U/L (16-63) 26U/L (16-63) Alkaline Phosphatase 107U/L (46-116) 90U/L (46-116) Creatine Kinase 228U/L (39-308) Creatine Kinase MB (Mass) 2.8ng/mL (0.0-3.6) Creatine Kinase MB Relative Index 1.2% (0-4) Troponin I Quantitative 0.031ng/mL (0.000-0.055) 0.020ng/mL (0.000-0.055) AT-Sqm-G-Type Natriuretic Peptide 3383pg/mL (0-124) Total Protein 7.8g/dL (6.4-8.2) 6.5g/dL (6.4-8.2) Albumin 3.6g/dL (3.4-5.0) 3.0g/dL (3.4-5.0) Albumin/Globulin Ratio 0.9 (1.0-1.7) 0.9 (1.0-1.7) Glucose (Fingerstick) 211mg/dL (70-99) 182mg/dL (70-99) Segmented Neutrophils % 90% (35-66) Lymphocytes % 6% (24-48) Monocytes % 3% (0-10) Metamyelocytes % 1% (0-0) Platelet Estimate Adequate (ADEQUATE) Triglycerides Level 26mg/dL (0-150) Cholesterol Level 163mg/dL (0-200) LDL Cholesterol, Calculated 102mg/dL (0-100) VLDL Cholesterol, Calculated 5mg/dL (0-40) HDL Cholesterol 56mg/dL (40-60) Cholesterol/HDL Ratio 2.9 Test 11/30/16 08:12 11/30/16 11:31 Glucose (Fingerstick) 133mg/dL (70-99) 133mg/dL (70-99) Laboratory Tests Test 11/29/16 20:40 11/30/16 03:35 11/30/16 08:12 11/30/16 11:31 Glucose (Fingerstick) 182mg/dL (70-99) 133mg/dL (70-99) 133mg/dL (70-99) White Blood Count 12.3x10^3/uL (4.0-11.0) Red Blood Count 4.68x10^6/uL (4.30-5.70) Hemoglobin 14.8g/dL (13.0-17.5) Hematocrit 45.0% (39.0-53.0) Mean Corpuscular Volume 96fL (79-100) Mean Corpuscular Hemoglobin 32pg (25-35) Mean Corpuscular Hemoglobin Concent 33g/dL (31-37) Red Cell Distribution Width 14.0% (11.5-14.5) Platelet Count 248x10^3/uL (140-400) Neutrophils (%) (Auto) 87% (31-73) Lymphocytes (%) (Auto) 7% (24-48) Monocytes (%) (Auto) 5% (0-9) Eosinophils (%) (Auto) 0% (0-3) Basophils (%) (Auto) 0% (0-3) Neutrophils # (Auto) 10.7x10^3uL (1.8-7.7) Lymphocytes # (Auto) 0.9x10^3/uL (1.0-4.8) Monocytes # (Auto) 0.6x10^3/uL (0.0-1.1) Eosinophils # (Auto) 0.0x10^3/uL (0.0-0.7) Basophils # (Auto) 0.0x10^3/uL (0.0-0.2) Segmented Neutrophils % 90% (35-66) Lymphocytes % 6% (24-48) Monocytes % 3% (0-10) Metamyelocytes % 1% (0-0) Platelet Estimate Adequate (ADEQUATE) Sodium Level 139mmol/L (136-145) Potassium Level 4.6mmol/L (3.5-5.1) Chloride Level 104mmol/L (98-107) Carbon Dioxide Level 27mmol/L (21-32) Anion Gap 8 (6-14) Blood Urea Nitrogen 27mg/dL (8-26) Creatinine 1.4mg/dL (0.7-1.3) Estimated GFR (Cockcroft-Gault) 62.8 BUN/Creatinine Ratio 19 (6-20) Glucose Level 135mg/dL (70-99) Calcium Level 8.7mg/dL (8.5-10.1) Total Bilirubin 0.9mg/dL (0.2-1.0) Aspartate Amino Transf (AST/SGOT) 19U/L (15-37) Alanine Aminotransferase (ALT/SGPT) 26U/L (16-63) Alkaline Phosphatase 90U/L (46-116) Troponin I Quantitative 0.020ng/mL (0.000-0.055) Total Protein 6.5g/dL (6.4-8.2) Albumin 3.0g/dL (3.4-5.0) Albumin/Globulin Ratio 0.9 (1.0-1.7) Triglycerides Level 26mg/dL (0-150) Cholesterol Level 163mg/dL (0-200) LDL Cholesterol, Calculated 102mg/dL (0-100) VLDL Cholesterol, Calculated 5mg/dL (0-40) HDL Cholesterol 56mg/dL (40-60) Cholesterol/HDL Ratio 2.9 Medications Active Scripts Medications Dose Route/Sig Days Date Category Oxycodone Hcl 10 Mg Tablet 10 Mg PO Q6HRS PRN 11/29/16 Reported Albuterol Sulfate Conc Neb Soln (Albuterol Sulfate) 2.5 Mg/0.5 Ml Vial.neb 1 Vial NEB Q4-6HRS PRN 11/29/16 Reported Aspir 81 (Aspirin) 81 Mg Tablet.dr 1 Tab PO DAILY 11/29/16 Reported Lipitor (Atorvastatin Calcium) 10 Mg Tablet 1 Tab PO QHS 11/29/16 Reported Breo Ellipta 200-25 Mcg INH (Fluticasone/Vilanterol) 1 Each Blst.w.dev 1 Puff IH BID 11/29/16 Reported Lyrica (Pregabalin) 150 Mg Capsule 1 Cap PO DAILY 11/29/16 Reported Prilosec Otc (Omeprazole Magnesium) 20 Mg Tablet.dr 1 Tab PO DAILY 11/29/16 Reported Potassium Chloride 10 Meq Capsule.er 20 Meq PO DAILY 11/29/16 Reported Promethazine Hcl 6.25 Mg/5 Ml Syrup 5 Ml PO QID 11/29/16 Reported Nitrostat (Nitroglycerin) 0.4 Mg Tab.subl 1 Tab SL UD 11/29/16 Reported Tizanidine Hcl 4 Mg Tablet 1 Tab PO TID 11/29/16 Reported Valium (Diazepam) 10 Mg Tablet 10 Mg PO QHS 11/29/16 Reported Zyprexa (Olanzapine) 20 Mg Tablet 1 Tab PO QHS 11/29/16 Reported Endocet 7.5-325 Mg Tablet (Oxycodone Hcl/Acetaminophen) 1 Each Tablet 1 Each PO Q6HRS 11/29/16 Reported Flonase Allergy Relief (Fluticasone Propionate) 9.9 Ml [place].susp 2 Sprays NS DAILY 11/29/16 Reported Furosemide 20 Mg Tablet 1 Tab PO DAILY 11/29/16 Reported Isosorbide Mononitrate Er (Isosorbide Mononitrate) 30 Mg Tab.er.24h 1 Tab PO DAILY 11/29/16 Reported Oxycontin (Oxycodone HCl) 20 Mg Tab.er.12h 20 Mg PO BID 11/29/16 Reported Impression . FULL CONSULT DICATED THANKS AECOPD IMPROVED ACUTE HEART FAILURE IMPROVED THANKS AGREE WITH CURRENT RX LISA KO MD Nov 30, 2016 16:43
--- NOTE | 2016-12-01 16:24 | CONS ---
DATE OF CONSULTATION: 11/30/2016 ATTENDING PHYSICIAN: Dr. Phillip Henry. REASON FOR CONSULTATION: The patient is seen in pulmonary consultation at the request of Dr. Henry for shortness of air. HISTORY OF PRESENT ILLNESS: The patient is a 61-year-old that presented with two week history of increasing shortness of breath and cough; mostly nonproductive. He has underlying COPD, does not wear oxygen at home. He also has a history of stage I bronchogenic carcinomas, underwent radiation; completed approximately last month. He is due to follow up with his physician in December. I was asked to see him in consultation as a result for increasing shortness of breath. He denies fever, chills or productive cough. He was wheezing and was severely short of air when he presented. PAST MEDICAL HISTORY: Nonischemic cardiomyopathy with ejection fraction of 20-25%, COPD, recurrent AFib, hyperlipidemia, hypertension, and stage I lung cancer status post radiation. He was not deemed a surgical candidate as a result of his cardiomyopathy, chronic kidney disease, history of traumatic brain injury, history of DVT, and prostate cancer. PAST SURGICAL HISTORY: Status post hernia repair, tonsillectomy, AICD placement, and cardiac catheterization. FAMILY HISTORY: Mother of complications of heart disease. SOCIAL HISTORY: The patient denies any current use of tobacco. He does use a vapor. REVIEW OF SYSTEMS: As indicated above, otherwise, a 10-point system was reviewed and negative. CURRENT MEDICATIONS: List was reviewed. ALLERGIES: No known drug allergies. PHYSICAL EXAMINATION: GENERAL: He was in no respiratory distress, room air saturation 95%. HEENT: Eyes, the sclerae were nonicteric. NECK: Jugular venous distention was not elevated. No lymphadenopathy. CHEST: Full expansion. LUNGS: Adequate airway flow with no wheezes, rales or rhonchi. CARDIOVASCULAR: Regular rate and rhythm with S1, S2, no S3. ABDOMEN: Soft, nontender, nondistended. EXTREMITIES: No clubbing, cyanosis or pitting edema. NEUROLOGIC: The patient was awake, alert, following commands. A detailed neuro exam was not performed. LABORATORY DATA: Reviewed. Electrolytes were noted. BNP was elevated. Creatinine was elevated. IMPRESSION: 1. Progressive dyspnea secondary to underlying nonischemic cardiomyopathy with ejection fraction of 20-25%. 2. Acute exacerbation of chronic obstructive pulmonary disease. 3. Nonspecific acute bronchitis. 4. Stage I lung cancer status post radiation. The patient is to follow up with his physician in December. PLAN: Overall, the patient's status is improved. He is now no longer wheezing. The x-ray reveals no infiltrates or effusions. I recommended he be discharged home on a taper dose of prednisone. No need for antibiotics. Continue his Symbicort and p.r.n. albuterol. I do appreciate the privilege in sharing in the patient's care. LISA KO MD DR: STACI/aiyana JOB#: [id number] / [id number]
== END 2016-11-30 18:30 | disposition home or self-care (01) | DRG 291 ==
LOC: ER 07:42 → 2 SOUTH 10:02 → 2 NORTH 11-30 14:55
PROVIDERS: ADMIT Family Medicine; ATTEND Family Medicine
DX: I13.0 Hypertensive heart and chronic kidney disease with heart failure and stage 1 through stage 4 chronic kidney disease, or unspecified chronic kidney disease (principal); I50.23 Acute on chronic systolic (congestive) heart failure; J96.00 Acute respiratory failure, unspecified whether with hypoxia or hypercapnia; J44.0 Chronic obstructive pulmonary disease with (acute) lower respiratory infection; J44.1 Chronic obstructive pulmonary disease with (acute) exacerbation; F43.10 Post-traumatic stress disorder, unspecified; I25.10 Atherosclerotic heart disease of native coronary artery without angina pectoris; I42.9 Cardiomyopathy, unspecified; I48.91 Unspecified atrial fibrillation; J20.9 Acute bronchitis, unspecified; F32.9 Major depressive disorder, single episode, unspecified; F41.9 Anxiety disorder, unspecified; M19.90 Unspecified osteoarthritis, unspecified site; K21.9 Gastro-esophageal reflux disease without esophagitis; E11.22 Type 2 diabetes mellitus with diabetic chronic kidney disease; E78.5 Hyperlipidemia, unspecified; F17.210 Nicotine dependence, cigarettes, uncomplicated; N18.9 Chronic kidney disease, unspecified; Z79.899 Other long term (current) drug therapy; Z82.49 Family history of ischemic heart disease and other diseases of the circulatory system; Z95.810 Presence of automatic (implantable) cardiac defibrillator; Z95.0 Presence of cardiac pacemaker; Z92.3 Personal history of irradiation; Z87.820 Personal history of traumatic brain injury; Z86.718 Personal history of other venous thrombosis and embolism; Z85.46 Personal history of malignant neoplasm of prostate; Z85.118 Personal history of other malignant neoplasm of bronchus and lung
CPT/HCPCS: 36415; 71010; 80053; 80061; 82553; 82947; 83880; 84484; 85007; 85027; 93005; 93306; 94640; 96374; 96375; J1650; J1940; J2930; J7620; 99285-25

== ENCOUNTER 2016-12-07 10:46 | Inpatient (IN) | payer OTHER ==
[~2016-12-07] VITALS: Ht 182.9 cm; Wt 81.3 kg
[~2016-12-07 10:46] MED LIST: ALBU2.5V14 NEB; ASPI-482 PO; ATOR10TA PO; BREO ELLIPTA 21 EACH IH; FLUT9.9S NS; FURO20TA3 PO; ISOS30TA4 PO; NITR0.4T SL; OLAN20TA3 PO; OMEP20TA63 PO; OXYC-316 PO; OXYC10TA PO; OXYC1TAB9 PO; OXYC20TA34 PO; POTA10CA PO; PREG150C PO; PROM6.25 PO; TIZA4TAB PO; VALIUM10 MG PO
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
[2016-12-07 11:30] LABS: BASO # 0.1 x10^3/uL (0.0-0.2); BASO % 1 % (0-3); EOS % 1 % (0-3); HEMATOCRIT 46.8 % (39.0-53.0); HEMOGLOBIN 15.1 g/dL (13.0-17.5); LYMPH # 1.4 x10^3/uL (1.0-4.8); LYMPH % 14 % (24-48); MEAN CORPUSCULAR HEMOGLOBIN 32 pg (25-35); MEAN CORPUSCULAR HGB CONC 32 g/dL (31-37); MEAN CORPUSCULAR VOLUME 99 fL (79-100); MONO % 8 % (0-9); NEUT % 76 % (31-73); PLATELET COUNT 199 x10^3/uL (140-400); RED BLOOD COUNT 4.73 x10^6/uL (4.30-5.70); RED CELL DISTRIBUTION WIDTH 14.7 % (11.5-14.5)
[2016-12-07] MEDS ORDERED: MORPHINE SULFATE 4 MG/ML DISP.SYRIN. IV ONE (11:30)
[2016-12-07] MEDS ORDERED: BENZONATATE 100 MG CAPSULE. PO ONE (11:30)
[2016-12-07] MEDS ORDERED: ASPIRIN 81 MG TAB.CHEW PO ONE (11:30)
--- NOTE | 2016-12-07 11:35 | RAD ---
Portable chest, 12/07/2016: History: Shortness of breath and cough Comparison is made to a study from 11/29/2016. A left-sided transvenous pacemaker remains in place with 2 leads extending into the right heart. The heart is mildly enlarged. The pulmonary vascularity is within normal limits. No pulmonary infiltrates are seen. There is no evidence of pleural fluid. A surgical screw is again noted at the left shoulder. IMPRESSION: 1. Mild cardiomegaly. 2. No acute abnormality is detected.
[2016-12-07 11:40] LABS: CALCIUM 9.2 mg/dL (8.5-10.1); CREATININE 1.4 mg/dL (0.7-1.3); GFR 62.8; POTASSIUM 4.2 mmol/L (3.5-5.1)
[2016-12-07 11:46] LABS: ALBUMIN 3.7 g/dL (3.4-5.0); DIRECT BILIRUBIN 0.5 mg/dL (0.0-0.2); TOTAL BILIRUBIN 1.1 mg/dL (0.2-1.0); TOTAL PROTEIN 7.7 g/dL (6.4-8.2)
[2016-12-07 11:51] LABS: OBC FLU VALID
--- NOTE | 2016-12-07 12:18 | EKG ---
[facility] [address] [place] [address] Test Date: 2016-12-07 Test Time: 10:57:48 Pat Name: ALEXIA ELLIOTT Department: Room: Gender: M Swim Instructor: : 1955 Requested By: LEVI CURIEL Order Number: [id number] Reading MD: Measurements Intervals [place] Rate: 99 P: 14 AL: 120 QRS: -17 QRSD: 92 T: 73 QT: 372 QTc: 483 Interpretive Statements SINUS RHYTHM LEFT ATRIAL ABNORMALITY LEFTWARD AXIS CONSIDER LEFT VENTRICULAR HYPERTROPHY PROLONGED QT RI6.01 Unconfirmed report No previous ECG available for comparison
[2016-12-07] MEDS ORDERED: ACETAMINOPHEN 325 MG TABLET. PO PRN (13:00)
[2016-12-07] MEDS ORDERED: ONDANSETRON PF 4 MG/2 ML VIAL. IV PRN (13:00)
[2016-12-07] MEDS ORDERED: NITROGLYCERIN SUBLINGUAL 0.4 MG BOTTLE OF 25. SL PRN ×2 (13:00→16:00)
[2016-12-07] MEDS ORDERED: MORPHINE SULFATE 4 MG/ML DISP.SYRIN. IV PRN (13:00)
--- NOTE | 2016-12-07 13:51 | ACF ---
Admission Forms Criteria SYNCOPE Clinical Indications for Admission to Inpatient Care ( Place 'X' for any and all applicable criteria): Admission is indicated for syncope and ANY ONE of the following (1)(2)(3)(4)(5) (6)(7) : [X]I. Inpatient admission required rather than observation care (Also use Syncope: Observation Care Criteria as appropriate) because of ANY ONE of the following: [ ]a) Hemodynamic instability that is severe or persistent [ ]b) Cardiac arrhythmias of immediate concern identified or strongly suspected (eg, needs electrophysiologic study) [ ]c) Acute coronary syndrome identified (Also use Myocardial Infarction or Angina Criteria form ) [ ]d) Structural cardiac disorder (eg, aortic stenosis) suspected as cause that requires immediate correction [ ]e) Respiratory symptoms (eg, dyspnea, tachypnea) that are severe or persistent [ ]f) Neurologic signs or symptoms that are severe or persistent ( eg, stroke, seizures, altered mental status) [ ]g) Severe electrolyte abnormalities requiring inpatient care [ ]h) Supplemental oxygen or respiratory treatment for over 24 hrs that are performable only in acute inpatient setting [ ]i) IV fluid to replace significant ongoing (eg, for over 24 hrs ) losses (>3 L/m2 per day) [ ]j) Continuous intravenous infusion of anticoagulation, platelet inhibitor, vasoactive, or antiarrhythmic medication(15)(16) [ ]k) Pulmonary artery catheter monitoring [ ]l) Temporary pacemaker placement(17) [ ]m) Emergent cardioversion(18) [X]n) Other conditions, treatment or monitoring requiring inpatient admission [ ]II. Suspicion of imminently dangerous cause (eg, rare causes like pericardial tamponade, pulmonary embolism) [ ]III. Syncope causing severe injury requiring hospitalization Extended stay beyond goal length of stay may be needed for(28) [ ]a) Dangerous arrhythmia(15)(23)(27)(29) [ ]b) Myocardial ischemia [ ]c) Seizure disorder [ ]d) Syncope-related injuries The original [employer] content created by [employer] has been revised. The portions of the content which have been revised are identified through the use of italic text or in bold, and [employer] has neither reviewed nor approved the modified material. All other unmodified content is copyright [employer]. Please see references footnoted in the original [facility] edition 2016 Admission Criteria Met?: Yes YOHAN SANZ Dec 07, 2016 13:51
--- NOTE | 2016-12-07 15:04 | PDOC2 ---
CARDIAC CONSULT DATE OF CONSULT Date of Consult DATE: 12/07/16 TIME: 14:27 REASON FOR CONSULT Reason for Consult: Chest pain, SOB, elevated troponin REFERRING PHYSICIAN Referring Physician: Dr. Timmons SOURCE Source: Chart review, Patient HISTORY OF PRESENT ILLNESS HISTORY OF PRESENT ILLNESS This is a 61 yo male who presented to our office today for routine visit. After medical i d sales took vital sign and left room, came out asking for sugar tablet. Stated that patient had passed out in the room and needed some sugar. thought this was a hypoglycemic episode. EMS was called. 1 packet of sugar was administered. Consciousness returned. BS reportedly 175 upon EMS arrival. BP 115/71, HR 99, O2 97%. Patient recalls felling hot prior to brief LOC. Recent hospitalization for similar symptoms. Symptoms significantly improved during hospitalizations, but returned post-discharge. Reports ongoing shortness of breath since discharge from the hospital last week; "can't catch my breath". Gets short of air with minimal exertion; unable to hold his grandchildren due to symptoms. Is tearful upon exam. Also reports congestion, persistent cough, and "itchy" throat that is worsened with cough, which began about 3 days ago. Feels "bad" overall. Reports compliance with medications. PAST MEDICAL HISTORY Past Medical History Cardiovascular: AFIB, CAD, CHF, HTN, Hyperlipidemia, Other (NICM s/p AICD) Pulmonary: COPD, Other (lung CA) CENTRAL NERVOUS SYSTEM: Other (traumatic brain injury ) GI: GERD Heme/Onc: No pertinent hx, Other (DVT) Hepatobiliary: No pertinent hx Psych: Anxiety, Depression, Other (PTSD) Musculoskeletal: Osteoarthritis Infectious disease: No pertinent hx ENT: No pertinent hx Renal/: Chronic renal insuff Endocrine: Diabetes Dermatology: No pertinent hx PAST SURGICAL HISTORY Past Surgical History Hernia Repair, Tonsillectomy, Other (septoplasty; left shoulder surgery; cardiac cath) FAMILY HISTORY Family History Heart Disease, Hypertension SOCIAL HISTORY Social History Smoke: Quit (last year ) ALCOHOL: none Drugs: None Lives: with Family CURRENT MEDICATIONS CURRENT MEDICATIONS Current Medications Medications (Trade) Dose Ordered Sig/David Route PRN Reason Start Time Stop Time Status Last Admin Dose Admin Aspirin (Children'S Aspirin) 324 mg 1X ONCE PO 12/07/16 11:30 12/07/16 11:31 DC 12/07/16 11:32 Benzonatate (Tessalon Perle) 100 mg 1X ONCE PO 12/07/16 11:30 12/07/16 11:31 DC 12/07/16 11:32 Morphine Sulfate 4 mg 1X ONCE IV 12/07/16 11:30 12/07/16 11:31 DC 12/07/16 11:32 ALLERGIES ALLERGIES: Coded Allergies: No Known Drug Allergies (Unverified , 11/29/16) ROS Review of System 14 point ROS conducted with pertinent positives noted above in HPI. PHYSICAL EXAM PHYSICAL EXAM General: Alert, Oriented X3, Cooperative, mild distress, Other (poor dentition ) HEENT: Atraumatic, Mucous membr. moist/pink Lungs: Other (fine expiratory wheezes) Heart: Regular rate, Normal S1, Normal S2 Abdomen: Soft, No tenderness Extremities: No cyanosis, No edema, Normal pulses Skin: No breakdown, No significant lesion Neuro: Normal speech, Sensation intact Psych/Mental Status: Mental status NL, Other (flat affect ) MUSCULOSKELETAL: Osteoarthritic changes both hands VITALS VITALS Vital Signs Date Time Temp Pulse Resp B/P Pulse Ox O2 Delivery O2 Flow Rate FiO2 12/07/16 12:00 104 20 136/96 95 12/07/16 11:04 98.2 Room Air 98.2 LABS Lab: Laboratory Tests Test 12/07/16 11:01 12/07/16 11:10 12/07/16 11:14 Glucose (Fingerstick) 154mg/dL (70-99) White Blood Count 10.0x10^3/uL (4.0-11.0) Red Blood Count 4.73x10^6/uL (4.30-5.70) Hemoglobin 15.1g/dL (13.0-17.5) Hematocrit 46.8% (39.0-53.0) Mean Corpuscular Volume 99fL (79-100) Mean Corpuscular Hemoglobin 32pg (25-35) Mean Corpuscular Hemoglobin Concent 32g/dL (31-37) Red Cell Distribution Width 14.7% (11.5-14.5) Platelet Count 199x10^3/uL (140-400) Neutrophils (%) (Auto) 76% (31-73) Lymphocytes (%) (Auto) 14% (24-48) Monocytes (%) (Auto) 8% (0-9) Eosinophils (%) (Auto) 1% (0-3) Basophils (%) (Auto) 1% (0-3) Neutrophils # (Auto) 7.6x10^3uL (1.8-7.7) Lymphocytes # (Auto) 1.4x10^3/uL (1.0-4.8) Monocytes # (Auto) 0.8x10^3/uL (0.0-1.1) Eosinophils # (Auto) 0.1x10^3/uL (0.0-0.7) Basophils # (Auto) 0.1x10^3/uL (0.0-0.2) Sodium Level 141mmol/L (136-145) Potassium Level 4.2mmol/L (3.5-5.1) Chloride Level 104mmol/L (98-107) Carbon Dioxide Level 27mmol/L (21-32) Anion Gap 10 (6-14) Blood Urea Nitrogen 20mg/dL (8-26) Creatinine 1.4mg/dL (0.7-1.3) Estimated GFR (Cockcroft-Gault) 62.8 Glucose Level 143mg/dL (70-99) Calcium Level 9.2mg/dL (8.5-10.1) Total Bilirubin 1.1mg/dL (0.2-1.0) Direct Bilirubin 0.5mg/dL (0.0-0.2) Aspartate Amino Transf (AST/SGOT) 25U/L (15-37) Alanine Aminotransferase (ALT/SGPT) 37U/L (16-63) Alkaline Phosphatase 103U/L (46-116) Troponin I Quantitative 0.067ng/mL (0.000-0.055) Total Protein 7.7g/dL (6.4-8.2) Albumin 3.7g/dL (3.4-5.0) Lipase 115U/L (73-393) Influenza Type A Antigen Negative (NEGATIVE) Influenza Type B Antigen Negative (NEGATIVE) ECHOCARDIOGRAM ECHOCARDIOGRAM <Conclusion> The Left Ventricle is moderately dilated. Left ventricle systolic function is severely impaired. The Ejection Fraction is 20-25%. There is global hypokinesis of the left ventricle. There is a pacemaker/ICD lead seen in the RV/RA. There is no significant aortic valvular stenosis. Doppler and Color Flow revealed no significant aortic regurgitation. Doppler and Color Flow revealed mild mitral regurgitation. Doppler and Color Flow revealed mild to moderate tricuspid regurgitation. The PA pressure was estimated at 48 mmHg. DATE: 11/29/16 1642 ASSESSMENT/PLAN ASSESSMENT/PLAN 1. Chest Pain, with typical and atypical features initial trop 0.067- continue with series ASA. lipids checked last week Recent echo with EF of 20-25% with global hypokinesis of the left ventricle, which is unchanged from previous study 03/2015 will proceed with MPI in am to r/o ischemia 2. Dyspnea multifactorial given NICM and COPD recent lung CA s/p radiation 3. syncope ? hypoglycemic episode HR, BP stable. 4. Chronic systolic heart failure CXR with cardiomegaly; no significant pleural fluid noted Continue oral diuresis with monitoring of labs; increase Lasix to 40mg daily Coreg for optimization. Low-dose ADDI if BP allows. 5. Non ischemic cardiomyopathy s/p AICD LVEF 20-25% recent device check with normal function 6. h/o AFIB maintaining SR ASA for stroke prophylaxis 7. Hyperlipidemia LDL 102 continue statin 8. Hypertension controlled 9. CAD non-obstruction CAD per cath 2013 10. Lung CA s/p radiation therapy 11. CKD Problems: DOMONIQUE AVILEZ APRN Dec 07, 2016 15:04
[2016-12-07 15:43] VITALS: BP 116/76
--- NOTE | 2016-12-07 15:51 | PDOC ---
Provider Note Provider Note See admission H&P dictation # Impression: 1. Syncopal episode: 2. Atypical chest pain: 3. COPD exacerbation: 4. H/o A fib: 5. Chronic systolic heart failure with cardiomyopathy: 6. H/o lung ca: JALEEL CAMPOS MD Dec 07, 2016 15:51
[2016-12-07] MEDS ORDERED: PROMETHAZINE 6.25 MG/5 ML SYRUP. PO PRN (16:00)
[2016-12-07] MEDS ORDERED: tiZANidine 4 MG TABLET. PO PRN (16:00)
[2016-12-07] MEDS: IPRATRPIUM/ALBUTEROL 0.5/2.5MG 3 ML NEBU. NEB SCH ×2 (16:00→20:20)
[2016-12-07] MEDS ORDERED: ALBUTEROL SULFATE 2.5 MG/3 ML NEBU. NEB PRN (16:00)
[2016-12-07] MEDS: FUROSEMIDE 40 MG TABLET PO SCH (16:56)
[2016-12-07] MEDS ORDERED: CARVEDILOL 3.125 MG TABLET PO SCH (17:00)
[2016-12-07] MEDS: GUAIFENESIN DM 200MG/20MG 10 ML SYRUP. PO PRN (17:38)
[2016-12-07] MEDS: OXYCODONE IR 5 MG TABLET. PO PRN (17:38)
[2016-12-07 19:40] VITALS: BP 127/94
[2016-12-07] MEDS: BUDESONIDE 0.5 MG/2 ML NEBU NEB SCH (20:20)
[2016-12-07] MEDS: OXYCODONE ER 10 MG TAB.ER.12H. PO SCH (20:40)
[2016-12-07 20:52] LABS: BILIRUBIN,URINE SMALL (NEG); GLUCOSE,URINE 250 mg/dL (NEG); NITRITE,URINE NEGATIVE (NEG); PROTEIN,URINE 100 mg/dL (NEG-TRACE)
[2016-12-07] MEDS ORDERED: ATORVASTATIN CALCIUM 20 MG TABLET PO SCH (21:00)
[2016-12-07] MEDS ORDERED: OLANZAPINE 5 MG TABLET. PO SCH (21:00)
[2016-12-07] MEDS ORDERED: NON FORMULARY ITEM (Fluticasone/Vilanterol (Breo Ellipta 200-25 Mcg INH) 1 PUFF) IH SCH (21:00)
[2016-12-07 21:01] LABS: BACTERIA,URINE FEW /HPF (0-FEW); RBC,URINE 0 /HPF (0-2)
[2016-12-07 21:02] LABS: SQUAMOUS EPITHELIAL CELL,UR OCC /LPF
[2016-12-07 23:13] VITALS: BP 151/83
[2016-12-08 03:30] VITALS: BP 129/86
[2016-12-08 04:30] LABS: CALCIUM 9.1 mg/dL (8.5-10.1); CREATININE 1.6 mg/dL (0.7-1.3); GFR 53.8; POTASSIUM 5.6 mmol/L (3.5-5.1)
[2016-12-08 07:00] VITALS: BP 145/87
[2016-12-08] MEDS: IPRATRPIUM/ALBUTEROL 0.5/2.5MG 3 ML NEBU. NEB SCH ×4 (07:12→20:06)
[2016-12-08] MEDS: BUDESONIDE 0.5 MG/2 ML NEBU NEB SCH ×2 (07:12→20:06)
[2016-12-08] MEDS ORDERED: PANTOPRAZOLE 40 MG TABLET. PO SCH (07:30)
[2016-12-08] MEDS ORDERED: REGADENOSON 0.4 MG/5 ML DISP.SYRIN. IV ONE (08:00)
[2016-12-08] MEDS ORDERED: POTASSIUM CHLORIDE 20 MEQ TABLET.ER. PO SCH ×2 (08:00)
[2016-12-08] MEDS: OXYCODONE ER 10 MG TAB.ER.12H. PO SCH (08:12)
[2016-12-08] MEDS ORDERED: ASPIRIN ENTERIC COATED 81 MG TABLET.DR. PO SCH (09:00)
[2016-12-08] MEDS ORDERED: ISOSORBIDE MONONITRATE ER 30 MG TAB.ER.24H PO SCH (09:00)
[2016-12-08] MEDS ORDERED: PREGABALIN 75 MG CAPSULE PO SCH (09:00)
[2016-12-08] MEDS ORDERED: FLUTICASONE 50MCG/NASAL SPRAY 16GM BOTTLE. NS SCH (09:00)
[2016-12-08 11:00] VITALS: BP 128/55
--- NOTE | 2016-12-08 11:07 | PDOC ---
CARDIO Progress Notes Date and Time Date of Service 12/08/2016 Time of Evaluation 1107 Subjective Subjective: No Chest Pain, No shortness of breath, No Palpitations, No Dizziness Vitals Vitals Vital Signs Date Time Temp Pulse Resp B/P Pulse Ox O2 Delivery O2 Flow Rate FiO2 12/08/16 08:12 Nasal Cannula 2.0 12/08/16 07:12 97 12/08/16 07:00 99.4 115 22 145/87 99.4 Weight Weight [ ] Input and Output Intake and Output Intake and Output 12/08/16 07:00 Intake Total 1040 ml Output Total 900 ml Balance 140 ml Intake Oral 1040 ml Output Urine Total 900 ml # Voids 3 Laboratory Labs Laboratory Tests Test 12/07/16 11:10 12/07/16 11:14 12/07/16 18:30 12/07/16 20:00 White Blood Count 10.0x10^3/uL (4.0-11.0) Red Blood Count 4.73x10^6/uL (4.30-5.70) Hemoglobin 15.1g/dL (13.0-17.5) Hematocrit 46.8% (39.0-53.0) Mean Corpuscular Volume 99fL (79-100) Mean Corpuscular Hemoglobin 32pg (25-35) Mean Corpuscular Hemoglobin Concent 32g/dL (31-37) Red Cell Distribution Width 14.7% (11.5-14.5) Platelet Count 199x10^3/uL (140-400) Neutrophils (%) (Auto) 76% (31-73) Lymphocytes (%) (Auto) 14% (24-48) Monocytes (%) (Auto) 8% (0-9) Eosinophils (%) (Auto) 1% (0-3) Basophils (%) (Auto) 1% (0-3) Neutrophils # (Auto) 7.6x10^3uL (1.8-7.7) Lymphocytes # (Auto) 1.4x10^3/uL (1.0-4.8) Monocytes # (Auto) 0.8x10^3/uL (0.0-1.1) Eosinophils # (Auto) 0.1x10^3/uL (0.0-0.7) Basophils # (Auto) 0.1x10^3/uL (0.0-0.2) Sodium Level 141mmol/L (136-145) Potassium Level 4.2mmol/L (3.5-5.1) Chloride Level 104mmol/L (98-107) Carbon Dioxide Level 27mmol/L (21-32) Anion Gap 10 (6-14) Blood Urea Nitrogen 20mg/dL (8-26) Creatinine 1.4mg/dL (0.7-1.3) Estimated GFR (Cockcroft-Gault) 62.8 Glucose Level 143mg/dL (70-99) Calcium Level 9.2mg/dL (8.5-10.1) Total Bilirubin 1.1mg/dL (0.2-1.0) Direct Bilirubin 0.5mg/dL (0.0-0.2) Aspartate Amino Transf (AST/SGOT) 25U/L (15-37) Alanine Aminotransferase (ALT/SGPT) 37U/L (16-63) Alkaline Phosphatase 103U/L (46-116) Troponin I Quantitative 0.067ng/mL (0.000-0.055) 0.054ng/mL (0.000-0.055) Total Protein 7.7g/dL (6.4-8.2) Albumin 3.7g/dL (3.4-5.0) Lipase 115U/L (73-393) Influenza Type A Antigen Negative (NEGATIVE) Influenza Type B Antigen Negative (NEGATIVE) Urine Color Hanh Urine Clarity Clear Urine pH 5.0 Urine Specific [place] 1.025 Urine Protein 100mg/dL (NEG-TRACE) Urine Glucose (UA) 250mg/dL (NEG) Urine Ketones (Stick) Negativemg/dL (NEG) Urine Blood Negative (NEG) Urine Nitrite Negative (NEG) Urine Bilirubin Small (NEG) Urine Urobilinogen Dipstick 4.0mg/dL (0.2 mg/dL) Urine Leukocyte Esterase Negative (NEG) Urine RBC 0/HPF (0-2) Urine WBC 1-4/HPF (0-4) Urine Squamous Epithelial Cells Occ/LPF Urine Bacteria Few/HPF (0-FEW) Urine Hyaline Casts Occasional/HPF Urine Mucus Mod/LPF Test 12/07/16 20:56 12/08/16 02:30 Glucose (Fingerstick) 114mg/dL (70-99) Sodium Level 137mmol/L (136-145) Potassium Level 5.6mmol/L (3.5-5.1) Chloride Level 100mmol/L (98-107) Carbon Dioxide Level 30mmol/L (21-32) Anion Gap 7 (6-14) Blood Urea Nitrogen 18mg/dL (8-26) Creatinine 1.6mg/dL (0.7-1.3) Estimated GFR (Cockcroft-Gault) 53.8 Glucose Level 119mg/dL (70-99) Calcium Level 9.1mg/dL (8.5-10.1) Troponin I Quantitative 0.071ng/mL (0.000-0.055) Physical Exam HEENT: Neck Supple W Full Motion Chest: Symmetric LUNGS: Clear to Auscultation Heart: S1S2, RRR, no murmurs Abdomen: Soft N/T Extremities: No Edema Neurology: alert, oriented Assessment Assessment 1. Chest Pain, with typical and atypical features initial trop 0.067 then 0.054 and 0.071 ASA Recent echo with EF of 20-25% with global hypokinesis of the left ventricle, which is unchanged from previous study 03/2015 MPI in progress 2. Dyspnea multifactorial given NICM and COPD recent lung CA s/p radiation 3. syncope ? hypoglycemic episode HR, BP stable no further episodes 4. Chronic systolic heart failure continue diuretics will uptitrate BB. Low-dose ADDI if BP allows. 5. Non ischemic cardiomyopathy s/p AICD LVEF 20-25% recent device check with normal function continue medical management 6. h/o AFIB maintaining SR ASA for stroke prophylaxis 7. Hyperlipidemia LDL 102 continue statin 8. Hypertension controlled 9. CAD non-obstruction CAD per cath 2013 MONIKA VOGEL [employer] Dec 08, 2016 11:07
[2016-12-08] MEDS: GUAIFENESIN DM 200MG/20MG 10 ML SYRUP. PO PRN (12:43)
[2016-12-08] MEDS: FUROSEMIDE 40 MG TABLET PO SCH (12:44)
[2016-12-08] MEDS: OXYCODONE IR 5 MG TABLET. PO PRN (12:44)
--- NOTE | 2016-12-08 13:04 | RAD ---
APPROVED REPORT Test Type: Pharmacological Stress Nurse/Tech: hugh bliss Test Indications: chest pain Cardiac History: HTN, AFIB,CHF, PACEMAKER/ICD, SEE EHR Medications: SEE EHR Medical History: SMOKER -RECENTLY QUIT, NONE STATED Resting ECG: SINUS TACHYCARDIA Resting Heart Rate: 113 bpm Resting Blood Pressure: 119/79mmHg Pretest Chest Pain: No chest pain Nurse/Tech Notes LUNG SOUNDS NORMAL, S1S2 Consent: The procedure was explained to the patient in lay terms. Informed consent was witnessed. Shiva eout was entered into Topic. History and Stress Test performed by RT Karin (R) (N) Pharm. Details Pharmacologic stress testing was performed using 0.4mg per 5ml of regadenoson given intravenously ove r 7-10 seconds. Stress Symptoms HEADACHE. POST EXERCISE Max HR: 119 bpm Max Blood Pressure: 121/71mmHg Chest Pain: No. Arrhythmia: No. ST Change: No. INTERPRETATION Stress EKG Conclusion: The resting EKG shows a sinus rhythm, left ventricular hypertrophy and nonspec ific ST-T wave changes. The stress EKG shows no significant changes from baseline. Abnormal resting EKG but no EKG evidence of stress-induced ischemia. Imaging Protocol IMAGE PROTOCOL: Rest Tc-99m/stress Tc-99m 1 day Rest: Stress: Viability: Radiopharm.Tc99m ObxgqatqeNr47u Sestamibi Kofi48aKo 33mCi Duration 15min. 10min. Img Date 12/08/2016 12/08/2016 Inj-Img Pwio35pkz. 60min. Rest Admin Site:IV - Right WristAdministrator:RT Kimberly (R)(N) Stress Admin Site: IV - Right WristAdministrator: RT Karin (R)(N) STRESS DATA End Diast. Vol.333.0mlAv. Heart Kbue587.0bpm End Syst. Vol.275.0mlCO Index BSA0.0L/min Myocardial Ffmd860.0gEject. Tqmmoecs76.0% Stress Rates Pk. Fill Rate0.96EDV/secLVtime Pk. Fill 106.96msec Pk. Empty Rate1.87ESV/secLVtime Pk. Zzggm295.03msec 10/03 Pk. Fill0.16EDV/sec Stress Scores Regional WT3.00Summed WT51.00 Regional WM3.00Summed WM55.00 LV Perfusion The stress scans show an inferior apical defect. The rest scans show an inferior apical defect. Nuclear imaging shows an inferior apical infarct. There is mild katelyn-infarction ischemia but no new a reas of reversible ischemia. Wall Motion The left ventricle shows severe global hypokinesis with an ejection fraction of 17%. LV Perf. Quant 17 Seg. SSS5.00 17 Seg. SRS4.00 17 Seg. SDS1.00 Stress Defect Extent (% LAD)1.30Rest Defect Extent (% LAD)0.00Rev. Defect Extent (% LAD)0.00 Stress Defect Extent (% LCX) 7.50Rest Defect Extent (% LCX)0.00Rev. Defect Extent (% LCX)2.50 Stress Defect Extent (% RCA)28.90Rest Defect Extent (% RCA)27.80Rev. Defect Extent (% RCA)2.20 Stress Defect Extent (% MISHA)12.00Rest Defect Extent (% MISHA)7.20Rev. Defect Extent (% MISHA)2.60 Conclusion 1. Abnormal resting EKG but no EKG evidence of stress-induced ischemia. 2. Nuclear imaging shows an inferior apical infarct with mild katelyn-infarction ischemia. 3. Nuclear imaging shows no new areas of significant reversible ischemia. 4. Left ventricular systolic function shows severe global hypokinesis with an ejection fraction of 17 %. 5. Moderate risk Lexiscan nuclear stress test with poor LV function but no significant reversible isc hemia.
[2016-12-08 15:00] VITALS: BP 106/73
[2016-12-08] MEDS ORDERED: hydrALAZINE 20 MG/ML VIAL. IVP PRN (16:15)
[2016-12-08] MEDS ORDERED: CARVEDILOL 6.25 MG TABLET PO SCH (17:00)
--- NOTE | 2016-12-08 18:02 | DISCH ---
DISCHARGE INSTRUCTIONS Condition on Discharge Condition on Discharge: Stable Activity After Discharge Activity Instructions for Disc: Activity as tolerated Diet after Discharge Diet after Discharge: Cardiac, Low Sodium 2 gm Contacting the after DC Call your doctor for: If your condition worsens Follow-Up Follow up with: Dr Sainz in 1-2 weeks Follow Up With: Cardiology per their rec JALEEL CAMPOS MD Dec 08, 2016 18:02
[2016-12-08] MEDS ORDERED: POTA10CA PO (18:11)
[2016-12-08] MEDS ORDERED: GUAI5SYR PO (18:11)
[2016-12-08] MEDS ORDERED: CARV6.252 PO (18:11)
[2016-12-08] MEDS ORDERED: PROAIR HFA8.5 GM INH (18:11)
[2016-12-08 18:12] VITALS: BP 106/73
== END 2016-12-08 20:00 | disposition home or self-care (01) | DRG 638 ==
LOC: ER 10:46 → CVICU 12:49
PROVIDERS: ADMIT Family Medicine; ATTEND Family Medicine
DX: E11.649 Type 2 diabetes mellitus with hypoglycemia without coma (principal); I42.9 Cardiomyopathy, unspecified; I13.0 Hypertensive heart and chronic kidney disease with heart failure and stage 1 through stage 4 chronic kidney disease, or unspecified chronic kidney disease; I50.22 Chronic systolic (congestive) heart failure; J44.1 Chronic obstructive pulmonary disease with (acute) exacerbation; R55 Syncope and collapse; R07.89 Other chest pain; E11.22 Type 2 diabetes mellitus with diabetic chronic kidney disease; E78.00 Pure hypercholesterolemia, unspecified; E78.5 Hyperlipidemia, unspecified; F32.9 Major depressive disorder, single episode, unspecified; F41.9 Anxiety disorder, unspecified; M19.90 Unspecified osteoarthritis, unspecified site; F43.10 Post-traumatic stress disorder, unspecified; I25.10 Atherosclerotic heart disease of native coronary artery without angina pectoris; I48.91 Unspecified atrial fibrillation; K21.9 Gastro-esophageal reflux disease without esophagitis; N18.9 Chronic kidney disease, unspecified; Z82.49 Family history of ischemic heart disease and other diseases of the circulatory system; Z85.118 Personal history of other malignant neoplasm of bronchus and lung; Z92.3 Personal history of irradiation; Z95.810 Presence of automatic (implantable) cardiac defibrillator; Z87.891 Personal history of nicotine dependence
CPT/HCPCS: 36415; 71010; 78452; 80048; 80076; 81001; 82947; 83690; 84484; 85027; 87804; 93005; 93017; 94250; 94640; 96374; 96375; 96376; A9500; J2270; J2785; J7620; 99285-25

== ENCOUNTER 2016-12-10 06:52 | Inpatient (IN) | payer OTHER ==
[~2016-12-10] VITALS: Ht 182.9 cm; Wt 81.6 kg
[2016-12-10] VITALS (9 sets, daily range): BP systolic 79–118; BP diastolic 53–79
[~2016-12-10 06:52] MED LIST changes: +CARV6.252 PO; +GUAI5SYR PO; +PROAIR HFA8.5 GM INH
[2016-12-10] MEDS ORDERED: IPRATRPIUM/ALBUTEROL 0.5/2.5MG 3 ML NEBU. NEB ONE (07:00)
[2016-12-10] MEDS ORDERED: PROMETH/CODEINE 6.25/10MG 5 ML SYRUP. PO ONE (07:15)
[2016-12-10 07:17] LABS: CALCIUM 8.8 mg/dL (8.5-10.1); CREATININE 1.7 mg/dL (0.7-1.3); GFR 50.2; POTASSIUM 4.6 mmol/L (3.5-5.1)
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
[2016-12-10 07:21] LABS: BASO # 0.1 x10^3/uL (0.0-0.2); BASO % 1 % (0-3); EOS % 0 % (0-3); HEMATOCRIT 47.8 % (39.0-53.0); HEMOGLOBIN 16.1 g/dL (13.0-17.5); LYMPH # 1.8 x10^3/uL (1.0-4.8); LYMPH % 19 % (24-48); MEAN CORPUSCULAR HEMOGLOBIN 32 pg (25-35); MEAN CORPUSCULAR HGB CONC 34 g/dL (31-37); MEAN CORPUSCULAR VOLUME 96 fL (79-100); MONO % 10 % (0-9); NEUT % 70 % (31-73); PLATELET COUNT 162 x10^3/uL (140-400); RED BLOOD COUNT 4.96 x10^6/uL (4.30-5.70); RED CELL DISTRIBUTION WIDTH 14.5 % (11.5-14.5); WHITE BLOOD COUNT 9.8 x10^3/uL (4.0-11.0)
--- NOTE | 2016-12-10 08:06 | RAD ---
EXAM: Chest one view. HISTORY: Shortness of breath. COMPARISON: 12/07/2016. FINDINGS: A frontal view of the chest is obtained. A left-sided pacemaker has its leads in the right atrium and right ventricle. There is a screw in the left glenoid. The right distal clavicle has been resected. Carotid atherosclerotic calcifications are noted. There are no confluent infiltrates. The costophrenic angles are partially excluded, but there is no clear pneumothorax or pleural effusion. Emphysematous changes are suspected in the apices. The heart is moderately enlarged. IMPRESSION: 1. Moderate cardiomegaly. Suspect emphysema in the apices.
[2016-12-10] MEDS ORDERED: ACETAMINOPHEN 325 MG TABLET. PO PRN (08:15)
[2016-12-10] MEDS ORDERED: ONDANSETRON PF 4 MG/2 ML VIAL. IV PRN (08:15)
--- NOTE | 2016-12-10 08:41 | ACF ---
Admission Forms Criteria CHEST PAIN Clinical Indications for Admission to Inpatient Care (Place 'X' for any and all applicable criteria): Admission is indicated for chest pain and ANY ONE of the following(1)(2)(3)(4)(5 ): [ ]I. Angina with acute coronary syndrome (Also use Myocardial Infarction or Angina guideline) [ ]II. Hemodynamic instability [ ]III. Angina needing acute intervention as indicated by ALL of the following( 11)(12): [ ]a) Unstable angina is present as indicated by angina that is ANY ONE of the following: [ ]i) New onset [ ]ii) Nocturnal [ ]iii) Prolonged at rest [ ]iv) Progressive [ ]b) Angina warrants acute intervention as indicated by ANY ONE of the following: [ ]i) Recurrent angina (e.g, not responding as previously to treatment) [ ]ii) Angina at rest or with low-level activities despite initial medical therapy [ ]iii) New or presumably new ST-segment depression on ECG [ ]iv) Signs or symptoms of heart failure (eg, dyspnea, pulmonary edema) [ ]v) New or worsening mitral regurgitation [ ]vi) Hemodynamic instability [ ]vii) Dangerous arrhythmia (eg, sustained ventricular tachycardia) [ ]viii) History of percutaneous coronary intervention within 6 months [ ]ix) History of coronary artery bypass graft surgery [ ]x) GT risk score of 2 or greater[A] [ ]xi) History of Diabetes(14) [ ]xii) High-risk cardiac ischemia findings on noninvasive testing (e.g, echocardiogram, treadmill testing, nuclear scan) [ ]xiii) Chronic renal insufficiency (ie, estimated GFR less than 60 mL/min/1.732m) [ ]xiv) Left ventricular ejection fraction less than 40% [X]IV. Evidence of PA (eg, cardiac biomarkers positive, ST-segment elevation on ECG) also use Myocardial Infarction Criteria Form. [ ]V. Pulmonary edema [ ]. Respiratory distress [ ]VII. Chest pain indicative of serious diagnosis other than coronary artery disease (eg, aortic dissection) [ ]VIII. Contraindications and/or Inappropriate clinical situations for Observational Care in patients with Chest Pain, when ANY ONE of the following is required: [ ]a) Patient with risk factor for pulmonary embolism, acute coronary syndrome and myocardial infarction (18) [ ]b) Patient with Pulmonary embolism require an average LOS of 4.3 days, therefore emergency department observation management is inappropriate 18,23 [ ]c) Painful condition/s in the elderly, have the highest rate of recidivism after emergency department observation management (10.8%) 20,21,22 [ ]d) Elevated cardiac biomarker requires intensive and exhaustive care (19) [ ]IX. General contraindications and/or Inappropriate clinical situations for Observational Care in patients with Chest Pain, when ANY ONE of the following is required: [ ]a) Prediction of prolongation of LOS based on ANY ONE of the following may be considered as a contraindication for observational care 2, 3, 4, 5, 6, 7, 8, 9, 10, 11 [ ]i) Age > 65 yrs. [ ]ii) Patient arriving by ambulance [ ]iii) Patient with high acuity [ ]iv) Patient requiring vital sign monitoring [ ]v) Patient on IV medication [ ]b) Systolic blood pressures 180mmHg 3,12 [ ]c) Patient with altered mental status including delirium and other alteration of consciousness, (3) [ ]d) Patient whose discharge disposition will be to a senior care home or rehabilitation home should not be managed in Emergency Department Observation Unit. CMS rule requires 3 days hospital stay before such placement. 3,13 [ ]e) Patient with failure to thrive due to broad array of etiologies 3,16,17 [ ]f) Inability to ambulate 3,14 Extended stay beyond goal length of stay may be needed for (1)(28): [ ]a) Specific condition diagnosed after evaluation (eg, pulmonary embolism, aortic dissection) [ ]b) Unstable angina [ ]c) Continued suspicion of acute coronary syndrome with inability to complete needed cardiac evaluation (eg, patient clinically unable to undergo stress testing) [ ]d) Myocardial infarction (Contents from ANGINA and CHEST PAIN clinical indications for admission to inpatient care have been integrated in this form) The original [facility] content created by [employer] has been revised. The portions of the content which have been revised are identified through the use of italic text or in bold, and [facility] has neither reviewed nor approved the modified material. All other unmodified content is copyright [facility]. Please see references footnoted in the original [facility] edition 2016 Admission Criteria Met?: Yes NATALEE HOROWITZ Dec 10, 2016 08:41
[2016-12-10] MEDS ORDERED: ALBUTEROL SULFATE 2.5 MG/3 ML NEBU. NEB PRN (10:15)
[2016-12-10] MEDS ORDERED: NITROGLYCERIN SUBLINGUAL 0.4 MG BOTTLE OF 25. SL PRN ×2 (10:15→10:22)
[2016-12-10] MEDS ORDERED: tiZANidine 4 MG TABLET. PO PRN (10:15)
--- NOTE | 2016-12-10 10:18 | PDOC1 ---
History and Physical Date of Admission Date of Admission DATE: 12/10/16 Identification/Chief Complaint Chief Complaint chest pain Source Source: Patient History of Present Illness History of Present Illness Pt was recently admitted to the hospital for chest pain. States that the pain has not improved. Pt still having syncopal episodes; passed out with his grandbaby in his arms this morning. Feels significantly short of air. He has a fever and having productive cough with frank sputum Past Medical History Cardiovascular: AFIB, CAD, CHF, HTN, Hyperlipidemia, Other Pulmonary: COPD, Other CENTRAL NERVOUS SYSTEM: Other GI: GERD Heme/Onc: No pertinent hx, Other Hepatobiliary: No pertinent hx Psych: Anxiety, Depression, Other Musculoskeletal: Osteoarthritis Infectious disease: No pertinent hx Renal/: Chronic renal insuff Endocrine: Diabetes Dermatology: No pertinent hx Past Surgical History Past Surgical History: Hernia Repair, Tonsillectomy, Other (shoulder surgery, septoplasty) Family History Family History: Heart Disease, Hypertension Social History Smoke: <1 pack per day ALCOHOL: none Drugs: None Current Problem List Problem List Problems Medical Problems: (1) Chest pain Status: Acute Problems: Current Medications Current Medications Current Medications Albuterol/ Ipratropium (Duoneb) 3 ml 1X ONCE NEB Last administered on 07:30; Start 12/10/16 at 07:00; Stop 12/10/16 at 07:02; Status DC Promethazine HCl/ Codeine (Phenergan With Codeine) 5 ml 1X ONCE PO Last administered on 12/10/16 07:50; Start 12/10/16 at 07:15; Stop 12/10/16 at 07:16 ; Status DC Ondansetron HCl (Zofran) 4 mg PRN Q8HRS PRN IV NAUSEA/VOMITING; Start 12/10/16 at 08:15; Stop 12/11/16 at 08:14 Acetaminophen (Tylenol) 650 mg PRN Q4HRS PRN PO FEVER; Start 12/10/16 at 08:15 ; Stop 12/11/16 at 08:14 Albuterol/ Ipratropium (Duoneb) 3 ml RTQID NEB ; Start 12/10/16 at 12:00; Stop 12/11/16 at 11:59 Active Scripts Active Carvedilol 6.25 Mg Tablet 6.25 Mg PO BIDWMEALS Guaifenesin Dm Syrup (Guaifenesin/Dextromethorphan) 5 Ml Syrup 10 Ml PO PRN Q4HRS PRN Proair Hfa Inhaler (Albuterol Sulfate) 8.5 Gm Hfa.aer.ad 2 Puff INH QID PRN Potassium Chloride 10 Meq Capsule.er 20 Meq PO DAILY do not start until 12/11/16 Zyprexa (Olanzapine) 20 Mg Tablet 0.5 Tab PO QHS Reported Oxycodone Hcl 10 Mg Tablet 10 Mg PO Q6HRS PRN Aspir 81 (Aspirin) 81 Mg Tablet.dr 1 Tab PO DAILY Lipitor (Atorvastatin Calcium) 10 Mg Tablet 1 Tab PO QHS Breo Ellipta 200-25 Mcg INH (Fluticasone/Vilanterol) 1 Each Blst.w.dev 1 Puff IH BID Lyrica (Pregabalin) 150 Mg Capsule 1 Cap PO DAILY Prilosec Otc (Omeprazole Magnesium) 20 Mg Tablet.dr 1 Tab PO DAILY Promethazine Hcl 6.25 Mg/5 Ml Syrup 5 Ml PO QID Nitrostat (Nitroglycerin) 0.4 Mg Tab.subl 1 Tab SL UD Tizanidine Hcl 4 Mg Tablet 1 Tab PO TID Flonase Allergy Relief (Fluticasone Propionate) 9.9 Ml [place].susp 2 Sprays NS DAILY Furosemide 20 Mg Tablet 1 Tab PO DAILY Isosorbide Mononitrate Er (Isosorbide Mononitrate) 30 Mg Tab.er.24h 1 Tab PO DAILY Oxycontin (Oxycodone HCl) 20 Mg Tab.er.12h 20 Mg PO BID Allergies Allergies: Coded Allergies: No Known Drug Allergies (Unverified , 11/29/16) ROS General: YES: Chills, Fatigue, Night Sweats PSYCHOLOGICAL ROS: YES: Anxiety, Depression Eyes: No Decreased vision, No Eye Pain HEENT: No: Nasal congestion, Sore Throat ALLERGY AND IMMUNOLOGY: No: Hives, Post Nasal Drip Hematological and Lymphatic: No: Bleeding Problems, Blood Clots Respiratory: YES: Cough, Shortness of breath, Sputum Changes Cardiovascular: yes Chest Pain, yes Palpitations, No Edema Gastrointestinal: Yes Nausea, Yes Vomiting, No Abdominal Pain, No Constipation, No Diarrhea Genitourinary: No Dysuria, No Urgency Musculoskeletal: Yes Joint Pain, Yes Muscle Pain Neurological: Yes Numbness/Tingling, Yes Weakness Skin: No Rash, No Skin Lesion Changes Physical Exam General: Alert, Oriented X3, Cooperative, moderate distress HEENT: Atraumatic, PERRLA, EOMI, Mucous membr. moist/pink Lungs: Other (wheezes and rhonchi throughout) Abdomen: Normal bowel sounds, Soft, No tenderness, No hepatosplenomegaly Extremities: No clubbing, No cyanosis, No edema Skin: No rashes, No breakdown Neuro: Normal speech, Sensation intact, Cranial nerves 3-12 NL Psych/Mental Status: Other (tearful, depressed affect, good eye contact) Vitals Vitals Vital Signs Date Time Temp Pulse Resp B/P Pulse Ox O2 Delivery O2 Flow Rate FiO2 12/10/16 08:30 100 18 141/91 99 Nasal Cannula 2 12/10/16 07:00 97.5 97.5 Labs Labs Laboratory Tests Test 12/10/16 07:00 White Blood Count 9.8x10^3/uL (4.0-11.0) Red Blood Count 4.96x10^6/uL (4.30-5.70) Hemoglobin 16.1g/dL (13.0-17.5) Hematocrit 47.8% (39.0-53.0) Mean Corpuscular Volume 96fL (79-100) Mean Corpuscular Hemoglobin 32pg (25-35) Mean Corpuscular Hemoglobin Concent 34g/dL (31-37) Red Cell Distribution Width 14.5% (11.5-14.5) Platelet Count 162x10^3/uL (140-400) Neutrophils (%) (Auto) 70% (31-73) Lymphocytes (%) (Auto) 19% (24-48) Monocytes (%) (Auto) 10% (0-9) Eosinophils (%) (Auto) 0% (0-3) Basophils (%) (Auto) 1% (0-3) Neutrophils # (Auto) 6.9x10^3uL (1.8-7.7) Lymphocytes # (Auto) 1.8x10^3/uL (1.0-4.8) Monocytes # (Auto) 1.0x10^3/uL (0.0-1.1) Eosinophils # (Auto) 0.0x10^3/uL (0.0-0.7) Basophils # (Auto) 0.1x10^3/uL (0.0-0.2) Sodium Level 134mmol/L (136-145) Potassium Level 4.6mmol/L (3.5-5.1) Chloride Level 96mmol/L (98-107) Carbon Dioxide Level 28mmol/L (21-32) Anion Gap 10 (6-14) Blood Urea Nitrogen 25mg/dL (8-26) Creatinine 1.7mg/dL (0.7-1.3) Estimated GFR (Cockcroft-Gault) 50.2 Glucose Level 129mg/dL (70-99) Calcium Level 8.8mg/dL (8.5-10.1) Troponin I Quantitative 0.112ng/mL (0.000-0.055) Laboratory Tests Test 12/10/16 07:00 White Blood Count 9.8x10^3/uL (4.0-11.0) Red Blood Count 4.96x10^6/uL (4.30-5.70) Hemoglobin 16.1g/dL (13.0-17.5) Hematocrit 47.8% (39.0-53.0) Mean Corpuscular Volume 96fL (79-100) Mean Corpuscular Hemoglobin 32pg (25-35) Mean Corpuscular Hemoglobin Concent 34g/dL (31-37) Red Cell Distribution Width 14.5% (11.5-14.5) Platelet Count 162x10^3/uL (140-400) Neutrophils (%) (Auto) 70% (31-73) Lymphocytes (%) (Auto) 19% (24-48) Monocytes (%) (Auto) 10% (0-9) Eosinophils (%) (Auto) 0% (0-3) Basophils (%) (Auto) 1% (0-3) Neutrophils # (Auto) 6.9x10^3uL (1.8-7.7) Lymphocytes # (Auto) 1.8x10^3/uL (1.0-4.8) Monocytes # (Auto) 1.0x10^3/uL (0.0-1.1) Eosinophils # (Auto) 0.0x10^3/uL (0.0-0.7) Basophils # (Auto) 0.1x10^3/uL (0.0-0.2) Sodium Level 134mmol/L (136-145) Potassium Level 4.6mmol/L (3.5-5.1) Chloride Level 96mmol/L (98-107) Carbon Dioxide Level 28mmol/L (21-32) Anion Gap 10 (6-14) Blood Urea Nitrogen 25mg/dL (8-26) Creatinine 1.7mg/dL (0.7-1.3) Estimated GFR (Cockcroft-Gault) 50.2 Glucose Level 129mg/dL (70-99) Calcium Level 8.8mg/dL (8.5-10.1) Troponin I Quantitative 0.112ng/mL (0.000-0.055) VTE Prophylaxis Ordered VTE Prophylaxis Devices: Yes VTE Pharmacological Prophylaxi: No Assessment/Plan Assessment/Plan Pt is a 61yo AAM admitted for left sided chest pain 1)Chest pain- typical. Mildly elevated troponin, recent abnormal stress test. Cardiology consulted. Last cardiac cath was 2 years ago 2)CHF- systolic, severe, compensated. Pt has AICD. Recent ECHO with LVEF <20% . Pt continued on Lasix 20mg, Carvedilol 6.25mg BID and Imdur 30mg 3)Recent hx lung cancer- pt in remission. Pt has been treated with steroids and antibiotics over the past 2 months and is still not improving. Will get repeat CT Chest. 4)COPD Exacerbation- holding off on steroids for now until cardiac evaluation complete but may need 5)HTN- moderately controlled, continue above meds 6)Bipolar/Psych Issues- pt continued on Zyprexa 10mg 7)GERD- pt transitioned to Pantroprazole 8)Chronic pain- continuing pt on Oxycodone 20mg ER BID and Oxycodone 10mg q6H 9)Hyponatremia- mild 10)Acute on CKD- likely prerenal. Cr currently 1.7, baseline around 1.4. RANDALL TUTTLE MD Dec 10, 2016 10:18
[2016-12-10] MEDS ORDERED: CONTRAST GIVEN MC PRN (10:45)
[2016-12-10] MEDS ORDERED: IOHEXOL 300 MG/ML 75 ML VIAL IV ONE (11:00)
--- NOTE | 2016-12-10 12:11 | RAD ---
EXAM: CT ANGIOGRAPHY OF THE CHEST WITH AND WITHOUT INTRAVENOUS CONTRAST. HISTORY: Chest pain, history of lung cancer. TECHNIQUE: Computed tomographic angiography of the chest was performed before and after the intravenous administration of 60 mL Omnipaque 300. 3-D maximum intensity projections were also performed. COMPARISON: None. FINDINGS: Images of the upper abdomen reveal a 2 cm cyst in the dome of the liver. There appears to be dense bilateral gallbladder, possibly with some gallbladder wall thickening. Bone windows reveal no suspicious lesions. There is a complete opacification of some of the left lower lobe pulmonary arterial radicles, limiting sensitivity. Nevertheless, no pulmonary emboli are identified. The aorta is not opacified. There is no clear dissection or aneurysm. There are moderate atherosclerotic calcifications. There are no pathologically enlarged mediastinal or axillary lymph nodes. There is no pleural or pericardial effusion. The heart is moderately enlarged. A left-sided pacemaker is noted. There is moderate centrilobular and paraseptal emphysema. There is some scarring anteriorly in the right upper lobe. There is diffuse bronchial wall thickening. IMPRESSION: 1. Limited opacification of the pulmonary arterial tree limits sensitivity, but no emboli are seen. 2. Moderate cardiomegaly. 3. Moderate centrilobular and paraseptal emphysema. Bronchial wall thickening indicates acute or chronic bronchitis. Focal scarring or atelectasis in the right apex. 4. Possible gallbladder wall thickening, likely evaluated. Ultrasound could assess further the gallbladder if there is persistent concern. *One or more of the following individualized dose reduction techniques were utilized for this examination: 1. Automated exposure control. 2. Adjustment of the mA and/or kV according to patient size. 3. Use of iterative reconstruction technique.
[2016-12-10] MEDS: OXYCODONE IR 5 MG TABLET. PO PRN ×3 (12:15→19:45)
[2016-12-10] MEDS: ASPIRIN ENTERIC COATED 81 MG TABLET.DR. PO SCH (12:15)
[2016-12-10] MEDS: IPRATRPIUM/ALBUTEROL 0.5/2.5MG 3 ML NEBU. NEB SCH ×3 (12:32→19:36)
--- NOTE | 2016-12-10 12:52 | EKG ---
[facility] [address] [place] [address] Test Date: 2016-12-10 Test Time: 06:56:38 Pat Name: ALEXIA ESPINOSA Department: Room: Gender: M Project Manager/Design Manager: : 1955 Requested By: ALFREDO SILVA Order Number: [id number] Reading MD: Measurements Intervals [place] Rate: 98 P: 52 AK: 124 QRS: -31 QRSD: 92 T: 73 QT: 358 QTc: 459 Interpretive Statements SINUS RHYTHM VENTRICULAR PREMATURE COMPLEX(ES) LEFT ATRIAL ABNORMALITY ABNORMAL LEFT AXIS DEVIATION LEFT ANTERIOR FASCICULAR BLOCK CONSIDER LEFT VENTRICULAR HYPERTROPHY T ABNORMALITY IN HIGH LATERAL LEADS RI6.01 Unconfirmed report No previous ECG available for comparison
[2016-12-10 14:05] LABS: PLT ESTIMATE ADEQUATE (ADEQUATE)
[2016-12-10] MEDS: CARVEDILOL 6.25 MG TABLET PO SCH (17:00)
[2016-12-10] MEDS: PROMETHAZINE 6.25 MG/5 ML SYRUP. PO PRN ×2 (17:05→21:58)
[2016-12-10] MEDS: LEVOFLOXACIN 500 MG TABLET PO SCH (18:34)
[2016-12-10] MEDS ORDERED: IV NORMAL SALINE 500ML BAG 500 ML IV ONE (19:00)
[2016-12-10] MEDS ORDERED: NON FORMULARY ITEM (Fluticasone/Vilanterol (Breo Ellipta 200-25 Mcg INH) 1 PUFF) IH SCH (21:00)
[2016-12-10] MEDS: OLANZAPINE 5 MG TABLET. PO SCH (21:08)
[2016-12-10] MEDS: ATORVASTATIN CALCIUM 10 MG TABLET. PO SCH (21:09)
[2016-12-10] MEDS: OXYCODONE ER 10 MG TAB.ER.12H. PO SCH (21:09)
[2016-12-11] VITALS (19 sets, daily range): BP systolic 79–134; BP diastolic 53–96
[2016-12-11 05:40] LABS: CALCIUM 8.3 mg/dL (8.5-10.1); CREATININE 1.5 mg/dL (0.7-1.3); POTASSIUM 4.5 mmol/L (3.5-5.1)
--- NOTE | 2016-12-11 07:23 | PDOC ---
PROGRESS NOTES Subjective Subjective Patient reports CP has improved. Reports productive cough and wheezing persist. Admits to some R UQ pain. Objective Objective Vital Signs Date Time Temp Pulse Resp B/P Pulse Ox O2 Delivery O2 Flow Rate FiO2 12/11/16 02:40 97.6 93 18 113/89 96 Nasal Cannula 2.0 97.6 Intake and Output 12/11/16 07:00 Intake Total 1640 ml Output Total 600 ml Balance 1040 ml Intake Oral 1640 ml Output Urine Total 600 ml # Voids 1 Physical Exam Abdomen: Normal bowel sounds, Soft, Other (mild TTP R UQ without guarding or rebound) Heart: Regular rate Extremities: No edema General: Alert, Oriented X3, No acute distress Lungs: Other (BS decreased throughout, moderate expiratory wheezes and coarse BS bilateral bases) Assessment Assessment Problems Medical Problems: (1) Chest pain Status: Acute Plan Plan of Care 1. Chest pain with elevated troponin - troponin is trending down and pain appears improved. Await Cardiology input for further evaluation. 2. CHF with severe cardiomyopathy - continue present meds. 3. AE COPD - CT chest without infiltrate. Add Solumedrol, continue nebs and O2. 4. R UQ pain - patient was started on Levaquin yesterday when he had one elevated temp to [address] showed possible GB inflammation. Ultrasound ordered for further evaluation. 5. CKD III - stable on lab, prerenal azotemia some better than yesterday, patient encouraged increased po fluids. Follow lab. 6. chronic pain - stable on his home meds, continue. 7. bipolar mood disorder - appears stable, continue Zyprexa. Comment Review of Relevant I have reviewed the following items georgette (where applicable) has been applied. Labs Laboratory Tests Test 12/10/16 07:00 12/10/16 14:05 12/10/16 19:45 12/10/16 20:30 White Blood Count 9.8x10^3/uL (4.0-11.0) Red Blood Count 4.96x10^6/uL (4.30-5.70) Hemoglobin 16.1g/dL (13.0-17.5) Hematocrit 47.8% (39.0-53.0) Mean Corpuscular Volume 96fL (79-100) Mean Corpuscular Hemoglobin 32pg (25-35) Mean Corpuscular Hemoglobin Concent 34g/dL (31-37) Red Cell Distribution Width 14.5% (11.5-14.5) Platelet Count 162x10^3/uL (140-400) Neutrophils (%) (Auto) 70% (31-73) Lymphocytes (%) (Auto) 19% (24-48) Monocytes (%) (Auto) 10% (0-9) Eosinophils (%) (Auto) 0% (0-3) Basophils (%) (Auto) 1% (0-3) Neutrophils # (Auto) 6.9x10^3uL (1.8-7.7) Lymphocytes # (Auto) 1.8x10^3/uL (1.0-4.8) Monocytes # (Auto) 1.0x10^3/uL (0.0-1.1) Eosinophils # (Auto) 0.0x10^3/uL (0.0-0.7) Basophils # (Auto) 0.1x10^3/uL (0.0-0.2) Platelet Estimate Adequate (ADEQUATE) Large Platelets Occ Giant Platelets Occ Sodium Level 134mmol/L (136-145) Potassium Level 4.6mmol/L (3.5-5.1) Chloride Level 96mmol/L (98-107) Carbon Dioxide Level 28mmol/L (21-32) Anion Gap 10 (6-14) Blood Urea Nitrogen 25mg/dL (8-26) Creatinine 1.7mg/dL (0.7-1.3) Estimated GFR (Cockcroft-Gault) 50.2 Glucose Level 129mg/dL (70-99) Calcium Level 8.8mg/dL (8.5-10.1) Troponin I Quantitative 0.112ng/mL (0.000-0.055) 0.107ng/mL (0.000-0.055) 0.089ng/mL (0.000-0.055) Glucose (Fingerstick) 94mg/dL (70-99) Test 12/11/16 04:10 Sodium Level 131mmol/L (136-145) Potassium Level 4.5mmol/L (3.5-5.1) Chloride Level 96mmol/L (98-107) Carbon Dioxide Level 27mmol/L (21-32) Anion Gap 8 (6-14) Blood Urea Nitrogen 22mg/dL (8-26) Creatinine 1.5mg/dL (0.7-1.3) Estimated GFR (Cockcroft-Gault) 58.0 Glucose Level 123mg/dL (70-99) Calcium Level 8.3mg/dL (8.5-10.1) Laboratory Tests Test 12/10/16 14:05 12/10/16 19:45 12/10/16 20:30 12/11/16 04:10 Troponin I Quantitative 0.107ng/mL (0.000-0.055) 0.089ng/mL (0.000-0.055) Glucose (Fingerstick) 94mg/dL (70-99) Sodium Level 131mmol/L (136-145) Potassium Level 4.5mmol/L (3.5-5.1) Chloride Level 96mmol/L (98-107) Carbon Dioxide Level 27mmol/L (21-32) Anion Gap 8 (6-14) Blood Urea Nitrogen 22mg/dL (8-26) Creatinine 1.5mg/dL (0.7-1.3) Estimated GFR (Cockcroft-Gault) 58.0 Glucose Level 123mg/dL (70-99) Calcium Level 8.3mg/dL (8.5-10.1) Medications Current Medications Albuterol/ Ipratropium (Duoneb) 3 ml 1X ONCE NEB Last administered on 07:30; Start 12/10/16 at 07:00; Stop 12/10/16 at 07:02; Status DC Promethazine HCl/ Codeine (Phenergan With Codeine) 5 ml 1X ONCE PO Last administered on 12/10/16 07:50; Start 12/10/16 at 07:15; Stop 12/10/16 at 07:16 ; Status DC Ondansetron HCl (Zofran) 4 mg PRN Q8HRS PRN IV NAUSEA/VOMITING; Start 12/10/16 at 08:15; Stop 12/11/16 at 08:14 Acetaminophen (Tylenol) 650 mg PRN Q4HRS PRN PO FEVER; Start 12/10/16 at 08:15 ; Stop 12/11/16 at 08:14 Albuterol/ Ipratropium (Duoneb) 3 ml RTQID NEB Last administered on 12/10/16 19:36; Start 12/10/16 at 12:00; Stop 12/11/16 at 11:59 Aspirin (Ecotrin) 81 mg DAILY PO Last administered on 12/10/16 12:15; Start at 12:00 Atorvastatin Calcium (Lipitor) 10 mg QHS PO Last administered on 12/10/16 21: 09; Start 12/10/16 at 21:00 Carvedilol (Coreg) 6.25 mg BIDWMEALS PO ; Start 12/10/16 at 17:00 Furosemide (Lasix) 20 mg DAILY PO ; Start 12/11/16 at 09:00 Isosorbide Mononitrate (Imdur) 30 mg DAILY PO ; Start 12/11/16 at 09:00 Nitroglycerin (Nitrostat) 0.4 mg Q1HR PRN SL chest pain; Start 12/10/16 at 10: 15; Stop 12/10/16 at 10:22; Status DC Tizanidine HCl (Zanaflex) 4 mg PRN TID PRN PO muscle spasm Last administered on 12/10/16 12:15; Start 12/10/16 at 10:15 Non-Formulary Medication 1 puff BID IH ; Start 12/10/16 at 21:00 Albuterol Sulfate (Ventolin Neb Soln) 2.5 mg PRN Q4HRS PRN NEB SHORTNESS OF BREATH; Start 12/10/16 at 10:15 Olanzapine (Zyprexa) 10 mg QHS PO Last administered on 12/10/16 21:08; Start 12/10/16 at 21:00 Pantoprazole Sodium (Protonix) 40 mg DAILYAC PO ; Start 12/11/16 at 07:30 Oxycodone HCl (Roxicodone) 10 mg PRN Q6HRS PRN PO PAIN Last administered on 19:45; Start 12/10/16 at 10:15 Oxycodone HCl (Oxycontin) 20 mg Q12HR PO Last administered on 12/10/16 21:09; Start 12/10/16 at 21:00 Potassium Chloride (Klor-Con) 10 meq DAILYWBKFT PO ; Start 12/11/16 at 08:00 Nitroglycerin (Nitrostat) 0.4 mg PRN Q1HR PRN SL chest pain; Start 12/10/16 at 10:22 Iohexol (Omnipaque 300 Mg/ml) 60 ml 1X ONCE IV Last administered on 12/10/16 11:40; Start 12/10/16 at 11:00; Stop 12/10/16 at 11:01; Status DC Info (Do NOT chart on this entry -- for MONITORING) 1 each PRN DAILY PRN MC SEE COMMENTS; Start 12/10/16 at 10:45; Stop 12/12/16 at 10:44 Promethazine HCl 12.5 mg 12.5 mg PRN Q6HRS PRN PO NAUSEA/VOMITING Last administered on 12/10/16 21:58; Start 12/10/16 at 14:45 Sodium Chloride (Iv Sodium Chloride 0.9% 500ml Bag) 500 ml @ 500 mls/hr 1X ONCE IV Last administered on 12/10/16 18:38; Start 12/10/16 at 19:00; Stop 09/16 at 19:59; Status DC Levofloxacin (Levaquin) 500 mg DAILY PO Last administered on 12/10/16 18:34; Start 12/10/16 at 19:00 Active Scripts Active Carvedilol 6.25 Mg Tablet 6.25 Mg PO BIDWMEALS Guaifenesin Dm Syrup (Guaifenesin/Dextromethorphan) 5 Ml Syrup 10 Ml PO PRN Q4HRS PRN Proair Hfa Inhaler (Albuterol Sulfate) 8.5 Gm Hfa.aer.ad 2 Puff INH QID PRN Potassium Chloride 10 Meq Capsule.er 20 Meq PO DAILY do not start until 12/11/16 Zyprexa (Olanzapine) 20 Mg Tablet 0.5 Tab PO QHS Reported Oxycodone Hcl 10 Mg Tablet 10 Mg PO Q6HRS PRN Aspir 81 (Aspirin) 81 Mg Tablet.dr 1 Tab PO DAILY Lipitor (Atorvastatin Calcium) 10 Mg Tablet 1 Tab PO QHS Breo Ellipta 200-25 Mcg INH (Fluticasone/Vilanterol) 1 Each Blst.w.dev 1 Puff IH BID Lyrica (Pregabalin) 150 Mg Capsule 1 Cap PO DAILY Prilosec Otc (Omeprazole Magnesium) 20 Mg Tablet.dr 1 Tab PO DAILY Promethazine Hcl 6.25 Mg/5 Ml Syrup 5 Ml PO QID Nitrostat (Nitroglycerin) 0.4 Mg Tab.subl 1 Tab SL UD Tizanidine Hcl 4 Mg Tablet 1 Tab PO TID Flonase Allergy Relief (Fluticasone Propionate) 9.9 Ml [place].susp 2 Sprays NS DAILY Furosemide 20 Mg Tablet 1 Tab PO DAILY Isosorbide Mononitrate Er (Isosorbide Mononitrate) 30 Mg Tab.er.24h 1 Tab PO DAILY Oxycontin (Oxycodone HCl) 20 Mg Tab.er.12h 20 Mg PO BID Vitals/I & O Vital Sign - Last 24 Hours 12/10/16 12/10/16 12/10/16 12/10/16 07:32 08:00 08:30 09:30 Temp 101.0 101.0 Pulse 100 100 99 Resp 20 18 24 B/P 158/81 141/91 118/79 Pulse Ox 96 99 99 90 O2 Delivery Nasal Cannula Nasal Cannula Nasal Cannula Nasal Cannula O2 Flow Rate 2.0 2 2 2.0 12/10/16 12/10/16 12/10/16 12/10/16 09:30 12:15 12:18 12:32 Temp 98.9 98.9 Pulse 91 Resp B/P 116/73 Pulse Ox 94 O2 Delivery Nasal Cannula Room Air Nasal Cannula O2 Flow Rate 2.0 2.0 12/10/16 12/10/16 12/10/16 12/10/16 13:15 16:00 16:05 17:00 Temp 98.1 98.1 Pulse 73 74 Resp 25 B/P 87/68 85/58 Pulse Ox 97 98 96 O2 Delivery Nasal Cannula Nasal Cannula Nasal Cannula Nasal Cannula O2 Flow Rate 3.0 2.0 2.0 12/10/16 12/10/16 12/10/16 12/10/16 18:00 18:15 18:30 19:37 Pulse 74 84 84 Resp 18 20 15 B/P 79/53 90/65 90/70 Pulse Ox 99 97 97 98 O2 Delivery Nasal Cannula Nasal Cannula Nasal Cannula Nasal Cannula O2 Flow Rate 2.0 2.0 2.0 2.0 12/10/16 12/10/16 12/10/16 12/10/16 19:41 19:45 20:00 20:45 Temp 97.8 97.8 Pulse 93 Resp 18 22 24 B/P 102/76 Pulse Ox 97 O2 Delivery Nasal Cannula Nasal Cannula Nasal Cannula O2 Flow Rate 2.0 2.0 2.0 12/10/16 12/10/16 12/11/16 12/11/16 21:09 23:09 01:09 02:40 Temp 98.7 97.6 98.7 97.6 Pulse 95 93 Resp 24 18 B/P 104/69 113/89 Pulse Ox 95 96 O2 Delivery Nasal Cannula Nasal Cannula Nasal Cannula Nasal Cannula O2 Flow Rate 2.0 2.0 2.0 2.0 Intake and Output 12/10/16 12/10/16 12/11/16 15:00 23:00 07:00 Intake Total 240 ml 800 ml 600 ml Output Total 300 ml 300 ml Balance -60 ml 500 ml 600 ml JHONATAN VALDES MD Dec 11, 2016 07:22
[2016-12-11] MEDS: IPRATRPIUM/ALBUTEROL 0.5/2.5MG 3 ML NEBU. NEB SCH ×2 (08:14→11:33)
[2016-12-11] MEDS: methylPREDNISolone SOD SUCC PF 125 MG/2 ML VIAL. IV SCH ×3 (08:36→21:44)
[2016-12-11] MEDS: OXYCODONE ER 10 MG TAB.ER.12H. PO SCH ×2 (08:37→21:45)
[2016-12-11] MEDS: LEVOFLOXACIN 500 MG TABLET PO SCH (08:38)
[2016-12-11] MEDS: FUROSEMIDE 20 MG TABLET PO SCH (08:39)
[2016-12-11] MEDS: ASPIRIN ENTERIC COATED 81 MG TABLET.DR. PO SCH (08:39)
[2016-12-11] MEDS: POTASSIUM CHLORIDE 10 MEQ TABLET.ER. PO SCH (08:40)
[2016-12-11] MEDS: PANTOPRAZOLE 40 MG TABLET. PO SCH (08:45)
[2016-12-11] MEDS ORDERED: ISOSORBIDE MONONITRATE ER 30 MG TAB.ER.24H PO SCH (09:00)
--- NOTE | 2016-12-11 09:21 | RAD ---
Right upper quadrant abdominal ultrasound, 12/11/2016: History: Pain The gallbladder is not enlarged. It contains echogenic material with some associated posterior acoustic shadowing. The appearance suggests a combination of sludge and gallstones. There is mild diffuse thickening of the gallbladder velásquez. No pericholecystic its edema is seen. No bile duct dilatation is evident. A 1.5 cm cyst is noted in the superior aspect of the right lobe of liver. The liver is otherwise unremarkable. The visualized portions of the pancreas and right kidney show no abnormality. IMPRESSION: 1. The gallbladder contains gallstones and a small amount of sludge. 2. Diffuse gallbladder mural thickening which can be due to a variety of causes including cholecystitis, hypoproteinemia, liver disease or renal disease. 3. Small hepatic cyst.
[2016-12-11] MEDS: BUDESONIDE 0.5 MG/2 ML NEBU NEB SCH ×2 (10:14→11:33)
--- NOTE | 2016-12-11 11:28 | PDOC ---
CARDIO Progress Notes Date and Time Date of Service 12/15/2016 Time of Evaluation 1128 Subjective Subjective: No Palpitations, No Dizziness, Other (intermittent Left shoulder and upper scapula pain; reports "passing out" with this - patient bears down when he has pain ) Vitals Vitals Vital Signs Date Time Temp Pulse Resp B/P Pulse Ox O2 Delivery O2 Flow Rate FiO2 12/11/16 11:22 97.6 89 20 112/90 94 Nasal Cannula 2.0 97.6 Weight Weight [ ] Stability Assessment Comments CONTINUATION OF CARE NOTE Input and Output Intake and Output Intake and Output 12/11/16 07:00 Intake Total 1640 ml Output Total 600 ml Balance 1040 ml Intake Oral 1640 ml Output Urine Total 600 ml # Voids 1 Laboratory Labs Laboratory Tests Test 12/10/16 14:05 12/10/16 19:45 12/10/16 20:30 12/11/16 04:10 Troponin I Quantitative 0.107ng/mL (0.000-0.055) 0.089ng/mL (0.000-0.055) Glucose (Fingerstick) 94mg/dL (70-99) Sodium Level 131mmol/L (136-145) Potassium Level 4.5mmol/L (3.5-5.1) Chloride Level 96mmol/L (98-107) Carbon Dioxide Level 27mmol/L (21-32) Anion Gap 8 (6-14) Blood Urea Nitrogen 22mg/dL (8-26) Creatinine 1.5mg/dL (0.7-1.3) Estimated GFR (Cockcroft-Gault) 58.0 Glucose Level 123mg/dL (70-99) Calcium Level 8.3mg/dL (8.5-10.1) Test 12/11/16 08:12 Glucose (Fingerstick) 144mg/dL (70-99) Radiology Rad Impression 12/10/2016: Chest CTA: 1. Limited opacification of the pulmonary arterial tree limits sensitivity, but no emboli are seen. 2. Moderate cardiomegaly. 3. Moderate centrilobular and paraseptal emphysema. Bronchial wall thickening indicates acute or chronic bronchitis. Focal scarring or atelectasis in the right apex. 4. Possible gallbladder wall thickening, likely evaluated. Ultrasound could assess further the gallbladder if there is persistent concern. 12/10/2016: CXR: FINDINGS: A frontal view of the chest is obtained. A left-sided pacemaker has its leads in the right atrium and right ventricle. There is a screw in the left glenoid. The right distal clavicle has been resected. Carotid atherosclerotic calcifications are noted. There are no confluent infiltrates. The costophrenic angles are partially excluded, but there is no clear pneumothorax or pleural effusion. Emphysematous changes are suspected in the apices. The heart is moderately enlarged. IMPRESSION: 1. Moderate cardiomegaly. Suspect emphysema in the apices. Regadenoson MPI: 12/07/2016: 1. Abnormal resting EKG but no EKG evidence of stress-induced ischemia. 2. Nuclear imaging shows an inferior apical infarct with mild katelyn-infarction ischemia. 3. Nuclear imaging shows no new areas of significant reversible ischemia. 4. Left ventricular systolic function shows severe global hypokinesis with an ejection fraction of 17%. 5. Moderate risk Lexiscan nuclear stress test with poor LV function but no significant reversible ischemia. Physical Exam HEENT: Neck Supple W Full Motion Chest: Symmetric LUNGS: Other (basilar crackles posteriorly) Heart: S1S2, RRR, other (ICD in left pectoral region) Abdomen: Soft N/T Extremities: No Edema Neurology: alert, follow commands Diagnostic Tests Echocardiogram: Other (LVEF 20-25% on echo 11/29/2016; mild MR; mild to mod TR; PA = 48 mm Hg) Assessment Assessment CONTINUATION OF CARE NOTE: 1. left shoulder pain troponin peaked @ 0.112 EKG without acute changes recent MPI with fixed defect given recurrent symptoms - cardiac cath later today consider increasing dose on long acting nitrates 2. syncope suspect this occurs as pt is bearing down with having pain - advised to lay down and deep breath 3 . Chronic systolic heart failure continue diuretics will uptitrate BB add ACEI if BP will support 5. Non ischemic cardiomyopathy s/p AICD LVEF 20-25% recent device check with normal function continue medical management advised not to lift more than 10# sodium and fluid restriction discussed with 6. h/o AFIB maintaining SR ASA for stroke prophylaxis 7. Hyperlipidemia LDL 102 continue statin 8. Hypertension controlled hypotensive on presentation and was bolused with IV fluids 9. CAD non-obstructive CAD per cath 2013 medical management 10. psych history - anxiety, depression, PTSD ? impacting cardiac history MONIKA VOGEL APRN Dec 11, 2016 11:27
[2016-12-11] MEDS: OXYCODONE IR 5 MG TABLET. PO PRN (11:53)
[2016-12-11] MEDS: CARVEDILOL 6.25 MG TABLET PO SCH ×2 (11:55→17:59)
[2016-12-11] MEDS ORDERED: LIDOCAINE 2% 20 ML VIAL. ONE (13:17)
[2016-12-11] MEDS ORDERED: IODIXANOL 320 MG/ML 100 ML VIAL. ONE (13:17)
[2016-12-11] MEDS ORDERED: NITROGLYCERIN 200 MCG/2 ML SYRINGE FOR CATH/VASC LAB. ONE (13:40)
[2016-12-11] MEDS ORDERED: FENTANYL PF 100 MCG/2 ML VIAL. ONE (13:40)
[2016-12-11] MEDS ORDERED: HEPARIN for IV BOLUS 10,000 UNIT/10 ML VIAL. ONE (13:40)
[2016-12-11] MEDS ORDERED: VERAPAMIL 5 MG/2 ML VIAL. ONE (13:40)
[2016-12-11] MEDS ORDERED: MIDAZOLAM HCL 2 MG/2 ML VIAL. ONE (13:40)
[2016-12-11] MEDS ORDERED: VERAPAMIL 5 MG/2 ML VIAL. IART ONE (14:15)
[2016-12-11] MEDS ORDERED: LIDOCAINE 2% 20 ML VIAL. IJ ONE (14:15)
[2016-12-11] MEDS ORDERED: FENTANYL PF 100 MCG/2 ML VIAL. IV ONE (14:15)
[2016-12-11] MEDS ORDERED: HEPARIN for IV BOLUS 10,000 UNIT/10 ML VIAL. IART ONE (14:15)
[2016-12-11] MEDS ORDERED: MIDAZOLAM HCL 2 MG/2 ML VIAL. IV ONE (14:15)
[2016-12-11] MEDS ORDERED: NITROGLYCERIN 200 MCG/2 ML SYRINGE FOR CATH/VASC LAB. IART ONE (14:15)
[2016-12-11] MEDS ORDERED: IODIXANOL 320 MG/ML 100 ML VIAL. IART ONE (14:15)
[2016-12-11 14:22] LABS: HCO3 ABG 25 mmol/L (21-28); PCO2 ABG 39 mmHg (35-46); PH ABG 7.42 (7.35-7.45); PO2 ABG 69 mmHg (65-108); SAT O2 ABG 93 % (92-99)
[2016-12-11 14:24] LABS: FIO2 ABG 28
[2016-12-11] MEDS ORDERED: IV NORMAL SALINE 250ML 250 ML IV ONE (14:45)
--- NOTE | 2016-12-11 16:38 | CARD ---
APPROVED REPORT Procedure(s) performed: Right transradial approach Left Heart Catheterization + Coronary angiography HISTORY previous CHF: tobacco history() : The patient is a current smoker, hypertension, dyslipidemia. INDICATION The indication(s) include : unstable angina , dyspnea. CASE TECHNIQUE During this case, Fluoroscopy and low osmolar contrast were used for imaging. PROCEDURE NARRATIVE The patient was brought electively to the cardiac catheterization lab. A timeout was performed confi rming the patient's name, date of , procedure, and site of procedure. All necessary personnel w ere wearing the appropriate protective equipment and radiation monitor devices. After explaining the risks and benefits of the procedure and alternatives, informed consent was obtained. (See nursing no kip for medications administered). The right wrist was sterilely prepped and draped in the usual fas hion. The right wrist was infiltrated with 1 mL of 2% lidocaine for subcutaneous anesthesia. A 6 Fr ench Terumo glide sheath was inserted into the right radial artery without difficulty. Right and lef t coronary angiography was performed using a 6Fr TIG 4.0 catheter. Left ventricular end diastolic pr essure was obtained with a pigtail catheter and pullback was performed after left ventriculography. All catheter exchanges and advancements were performed over a guidewire. At case completion the righ t radial sheath was removed and a Terumo radial band was applied with 13 ml of air. The patient tole rated the procedure well and there were no immediate complications. HEMODYNAMICS: LVEDP 35 mm Hg No gradient on LV to aortic pullback. LEFT VENTRICULOGRAM: EF 15% Severe global hypokinesis. CORONARY ANGIOGRAPHY: LM is a large caliber vessel with normal angiographic appearance. LAD is a large caliber vessel with normal angiographic appearance with hyperdominance and wraps aroun d the apex and provides supply to the PDA area. Ramus is a moderate caliber vessel with normal angiographic apeparance. LCx is a moderate caliber non-dominant vessel with normal angiographic appearance. OM1 is a moderate caliber vessel with normal angiographic appearance. RCA is a large caliber co-dominant vessel with a mid 30% stenosis. RPDA and RPL are moderate caliber vessels with normal angiographic appearance. Conclusion 1. Severe LV dysfunction. EF 15% 2. Mild non-obstructive coronary disease. Recommendations Aggressive Medical Therapy
[2016-12-11] MEDS: OLANZAPINE 5 MG TABLET. PO SCH (21:43)
[2016-12-11] MEDS: ATORVASTATIN CALCIUM 10 MG TABLET. PO SCH (21:44)
[2016-12-12 03:40] VITALS: BP 109/65
[2016-12-12 05:10] LABS: CALCIUM 8.8 mg/dL (8.5-10.1); CREATININE 1.5 mg/dL (0.7-1.3); POTASSIUM 4.9 mmol/L (3.5-5.1)
[2016-12-12] MEDS: methylPREDNISolone SOD SUCC PF 125 MG/2 ML VIAL. IV SCH ×3 (06:31→22:04)
[2016-12-12 07:00] VITALS: BP 118/69
[2016-12-12] MEDS: BUDESONIDE 0.5 MG/2 ML NEBU NEB SCH ×2 (08:18→19:07)
[2016-12-12] MEDS ORDERED: DEXTROSE 50% 25 GM / 50ML DISP.SYRIN. IV PRN (08:30)
--- NOTE | 2016-12-12 08:32 | PDOC ---
PROGRESS NOTES Subjective Subjective Patient reports still having DIEGO and some cough. RUQ pain at times, may be associated with eating. Objective Objective Vital Signs Date Time Temp Pulse Resp B/P Pulse Ox O2 Delivery O2 Flow Rate FiO2 12/12/16 08:19 97 Nasal Cannula 2.0 12/12/16 07:00 96.5 73 20 118/69 96.5 Intake and Output 12/12/16 07:00 Intake Total 1085 ml Output Total 600 ml Balance 485 ml Intake Oral 1000 ml IV Total 85 ml Output Urine Total 600 ml # Voids 3 Physical Exam Abdomen: Normal bowel sounds, Soft, Other (mild R UQ TTP) Heart: Regular rate Extremities: No edema General: Alert, Oriented X3, No acute distress Lungs: Other (BS decreased throughout, moderate expiratory wheezes) Assessment Assessment Problems Medical Problems: (1) Chest pain Status: Acute Plan Plan of Care 1. Severe cardiomyopathy - EF 15% on cath yesterday, only mild CAD seen. Continuing medical management per Cardiology, resuming Imdur which patient apparently has not taken at home previously. 2. AE COPD - hypoxia at rest improving but still significant wheezing on exam and DIEGO. Continue O2, Solumedrol, Pulmicort. Will also have PT and OT to see him.bipolar 3. possible cholecystitis - patient has been afebrile with normal WBC's, but pain in R UQ persists and U/S showed stones and some mild diffuse GB wall thickening. Patient not a good surgical candidate. Will consult General Surgery for help with consideration of further tx. Patient was started on Levaquin when he had one elevated temperature several days ago. 4. hyperglycemia - patient reports some history of this. Glucose elevated now due to the Solumedrol, will start FSBG with SS insulin. 5. CKD III - stable on lab. 6. chronic pain - stable, continue his usual po meds. 7. bipolar mood disorder - stable, continue home med. Comment Review of Relevant I have reviewed the following items georgette (where applicable) has been applied. Labs Laboratory Tests Test 12/10/16 09:30 12/10/16 14:05 12/10/16 19:45 12/10/16 20:30 Nasal Screen MRSA (PCR) Negative (Negative) Troponin I Quantitative 0.107ng/mL (0.000-0.055) 0.089ng/mL (0.000-0.055) Glucose (Fingerstick) 94mg/dL (70-99) Test 12/11/16 04:10 12/11/16 08:12 12/11/16 12:18 12/11/16 14:10 Sodium Level 131mmol/L (136-145) Potassium Level 4.5mmol/L (3.5-5.1) Chloride Level 96mmol/L (98-107) Carbon Dioxide Level 27mmol/L (21-32) Anion Gap 8 (6-14) Blood Urea Nitrogen 22mg/dL (8-26) Creatinine 1.5mg/dL (0.7-1.3) Estimated GFR (Cockcroft-Gault) 58.0 Glucose Level 123mg/dL (70-99) Calcium Level 8.3mg/dL (8.5-10.1) Glucose (Fingerstick) 144mg/dL (70-99) 179mg/dL (70-99) O2 Saturation 93% (92-99) Arterial Blood pH 7.42 (7.35-7.45) Arterial Blood pCO2 at Patient Temp 39mmHg (35-46) Arterial Blood pO2 at Patient Temp 69mmHg (65-108) Arterial Blood HCO3 25mmol/L (21-28) Arterial Blood Base Excess 0mmol/L (-3-3) FiO2 28 Test 12/11/16 17:31 12/11/16 21:47 12/12/16 03:40 Glucose (Fingerstick) 235mg/dL (70-99) 239mg/dL (70-99) Sodium Level 134mmol/L (136-145) Potassium Level 4.9mmol/L (3.5-5.1) Chloride Level 96mmol/L (98-107) Carbon Dioxide Level 28mmol/L (21-32) Anion Gap 10 (6-14) Blood Urea Nitrogen 33mg/dL (8-26) Creatinine 1.5mg/dL (0.7-1.3) Estimated GFR (Cockcroft-Gault) 58.0 Glucose Level 180mg/dL (70-99) Calcium Level 8.8mg/dL (8.5-10.1) Laboratory Tests Test 12/11/16 12:18 12/11/16 14:10 12/11/16 17:31 12/11/16 21:47 Glucose (Fingerstick) 179mg/dL (70-99) 235mg/dL (70-99) 239mg/dL (70-99) O2 Saturation 93% (92-99) Arterial Blood pH 7.42 (7.35-7.45) Arterial Blood pCO2 at Patient Temp 39mmHg (35-46) Arterial Blood pO2 at Patient Temp 69mmHg (65-108) Arterial Blood HCO3 25mmol/L (21-28) Arterial Blood Base Excess 0mmol/L (-3-3) FiO2 28 Test 12/12/16 03:40 Sodium Level 134mmol/L (136-145) Potassium Level 4.9mmol/L (3.5-5.1) Chloride Level 96mmol/L (98-107) Carbon Dioxide Level 28mmol/L (21-32) Anion Gap 10 (6-14) Blood Urea Nitrogen 33mg/dL (8-26) Creatinine 1.5mg/dL (0.7-1.3) Estimated GFR (Cockcroft-Gault) 58.0 Glucose Level 180mg/dL (70-99) Calcium Level 8.8mg/dL (8.5-10.1) Medications Current Medications Albuterol/ Ipratropium (Duoneb) 3 ml 1X ONCE NEB Last administered on 07:30; Start 12/10/16 at 07:00; Stop 12/10/16 at 07:02; Status DC Promethazine HCl/ Codeine (Phenergan With Codeine) 5 ml 1X ONCE PO Last administered on 12/10/16 07:50; Start 12/10/16 at 07:15; Stop 12/10/16 at 07:16 ; Status DC Ondansetron HCl (Zofran) 4 mg PRN Q8HRS PRN IV NAUSEA/VOMITING; Start 12/10/16 at 08:15; Stop 12/11/16 at 08:14; Status DC Acetaminophen (Tylenol) 650 mg PRN Q4HRS PRN PO FEVER; Start 12/10/16 at 08:15 ; Stop 12/11/16 at 08:14; Status DC Albuterol/ Ipratropium (Duoneb) 3 ml RTQID NEB Last administered on 12/11/16 11:33; Start 12/10/16 at 12:00; Stop 12/11/16 at 11:59; Status DC Aspirin (Ecotrin) 81 mg DAILY PO Last administered on 12/11/16 08:39; Start at 12:00 Atorvastatin Calcium (Lipitor) 10 mg QHS PO Last administered on 12/11/16 21: 44; Start 12/10/16 at 21:00 Carvedilol (Coreg) 6.25 mg BIDWMEALS PO Last administered on 12/11/16 17:59; Start 12/10/16 at 17:00 Furosemide (Lasix) 20 mg DAILY PO Last administered on 12/11/16 08:39; Start 12/11/16 at 09:00 Isosorbide Mononitrate (Imdur) 30 mg DAILY PO ; Start 12/11/16 at 09:00; Stop at 14:51; Status DC Nitroglycerin (Nitrostat) 0.4 mg Q1HR PRN SL chest pain; Start 12/10/16 at 10: 15; Stop 12/10/16 at 10:22; Status DC Tizanidine HCl (Zanaflex) 4 mg PRN TID PRN PO muscle spasm Last administered on 12/10/16 12:15; Start 12/10/16 at 10:15 Non-Formulary Medication 1 puff BID IH ; Start 12/10/16 at 21:00; Stop 12/11/16 at 10:48; Status DC Albuterol Sulfate (Ventolin Neb Soln) 2.5 mg PRN Q4HRS PRN NEB SHORTNESS OF BREATH; Start 12/10/16 at 10:15 Olanzapine (Zyprexa) 10 mg QHS PO Last administered on 12/11/16 21:43; Start 12/10/16 at 21:00 Pantoprazole Sodium (Protonix) 40 mg DAILYAC PO Last administered on 12/11/16 08:45; Start 12/11/16 at 07:30 Oxycodone HCl (Roxicodone) 10 mg PRN Q6HRS PRN PO PAIN Last administered on 11:53; Start 12/10/16 at 10:15 Oxycodone HCl (Oxycontin) 20 mg Q12HR PO Last administered on 12/11/16 21:45; Start 12/10/16 at 21:00 Potassium Chloride (Klor-Con) 10 meq DAILYWBKFT PO Last administered on 08:40; Start 12/11/16 at 08:00 Nitroglycerin (Nitrostat) 0.4 mg PRN Q1HR PRN SL chest pain; Start 12/10/16 at 10:22 Iohexol (Omnipaque 300 Mg/ml) 60 ml 1X ONCE IV Last administered on 12/10/16 11:40; Start 12/10/16 at 11:00; Stop 12/10/16 at 11:01; Status DC Info (Do NOT chart on this entry -- for MONITORING) 1 each PRN DAILY PRN MC SEE COMMENTS; Start 12/10/16 at 10:45; Stop 12/12/16 at 10:44 Promethazine HCl 12.5 mg 12.5 mg PRN Q6HRS PRN PO NAUSEA/VOMITING Last administered on 12/10/16 21:58; Start 12/10/16 at 14:45 Sodium Chloride (Iv Sodium Chloride 0.9% 500ml Bag) 500 ml @ 500 mls/hr 1X ONCE IV Last administered on 12/10/16 18:38; Start 12/10/16 at 19:00; Stop 09/16 at 19:59; Status DC Levofloxacin (Levaquin) 500 mg DAILY PO Last administered on 12/11/16 08:38; Start 12/10/16 at 19:00 Methylprednisolone Sodium Succinate (Solu-Medrol 125mg Vial) 60 mg Q8HRS IV Last administered on 12/12/16 06:31; Start 12/11/16 at 07:15 Budesonide 0.5 mg 0.5 mg RTBID NEB Last administered on 12/12/16 08:18; Start 12/11/16 at 11:00 Heparin Sodium/ Sodium Chloride 1,000 ml @ As Directed STK-MED ONCE .ROUTE ; Start 12/11/16 at 13:17; Stop 12/11/16 at 13:18; Status DC Lidocaine HCl 20 ml STK-MED ONCE .ROUTE ; Start 12/11/16 at 13:17; Stop at 13:18; Status DC Iodixanol (Visipaque 320) 100 ml STK-MED ONCE .ROUTE ; Start 12/11/16 at 13:17; Stop 12/11/16 at 13:18; Status DC Nitroglycerin (Nitroglycerin) 200 mcg STK-MED ONCE .ROUTE ; Start 12/11/16 at 13 :40; Stop 12/11/16 at 13:41; Status DC Verapamil HCl (Verapamil) 5 mg STK-MED ONCE .ROUTE ; Start 12/11/16 at 13:40; Stop 12/11/16 at 13:41; Status DC Heparin Sodium (Porcine) 10,000 unit STK-MED ONCE .ROUTE ; Start 12/11/16 at 13: 40; Stop 12/11/16 at 13:41; Status DC Fentanyl Citrate (Fentanyl 2ml Vial) 100 mcg STK-MED ONCE .ROUTE ; Start at 13:40; Stop 12/11/16 at 13:41; Status DC Midazolam HCl (Versed) 2 mg STK-MED ONCE .ROUTE ; Start 12/11/16 at 13:40; Stop 12/11/16 at 13:41; Status DC Nitroglycerin (Nitroglycerin) 200 mcg 1X ONCE IART Last administered on 14:17; Start 12/11/16 at 14:15; Stop 12/11/16 at 14:22; Status DC Verapamil HCl (Verapamil) 2.5 mg 1X ONCE IART Last administered on 12/11/16 14:22; Start 12/11/16 at 14:15; Stop 12/11/16 at 14:22; Status DC Heparin Sodium (Porcine) 2,500 unit 1X ONCE IART Last administered on 14:24; Start 12/11/16 at 14:15; Stop 12/11/16 at 14:22; Status DC Heparin Sodium/ Sodium Chloride 1,000 unit 1X ONCE IART Last administered on 14:17; Start 12/11/16 at 14:15; Stop 12/11/16 at 14:22; Status DC Midazolam HCl (Versed) 2 mg 1X ONCE IV Last administered on 12/11/16 14:23; Start 12/11/16 at 14:15; Stop 12/11/16 at 14:22; Status DC Fentanyl Citrate (Fentanyl 2ml Vial) 100 mcg 1X ONCE IV Last administered on 14:20; Start 12/11/16 at 14:15; Stop 12/11/16 at 14:22; Status DC Iodixanol (Visipaque 320) 100 ml 1X ONCE IART Last administered on 12/11/16 14:17; Start 12/11/16 at 14:15; Stop 12/11/16 at 14:22; Status DC Lidocaine HCl 20 ml 1X ONCE IJ Last administered on 12/11/16 14:17; Start at 14:15; Stop 12/11/16 at 14:22; Status DC Isosorbide Mononitrate 30 mg 30 mg DAILYWLUN PO ; Start 12/12/16 at 12:00 Sodium Chloride (Iv Sodium Chloride 0.9% 250ml) 250 ml @ 50 mls/hr 1X ONCE IV Last administered on 12/11/16 15:12; Start 12/11/16 at 14:45; Stop 12/11/16 at 19:44; Status DC Active Scripts Active Carvedilol 6.25 Mg Tablet 6.25 Mg PO BIDWMEALS Guaifenesin Dm Syrup (Guaifenesin/Dextromethorphan) 5 Ml Syrup 10 Ml PO PRN Q4HRS PRN Proair Hfa Inhaler (Albuterol Sulfate) 8.5 Gm Hfa.aer.ad 2 Puff INH QID PRN Potassium Chloride 10 Meq Capsule.er 20 Meq PO DAILY do not start until 12/11/16 Zyprexa (Olanzapine) 20 Mg Tablet 0.5 Tab PO QHS Reported Oxycodone Hcl 10 Mg Tablet 10 Mg PO Q6HRS PRN Aspir 81 (Aspirin) 81 Mg Tablet.dr 1 Tab PO DAILY Lipitor (Atorvastatin Calcium) 10 Mg Tablet 1 Tab PO QHS Breo Ellipta 200-25 Mcg INH (Fluticasone/Vilanterol) 1 Each Blst.w.dev 1 Puff IH BID Lyrica (Pregabalin) 150 Mg Capsule 1 Cap PO DAILY Prilosec Otc (Omeprazole Magnesium) 20 Mg Tablet.dr 1 Tab PO DAILY Promethazine Hcl 6.25 Mg/5 Ml Syrup 5 Ml PO QID Nitrostat (Nitroglycerin) 0.4 Mg Tab.subl 1 Tab SL UD Tizanidine Hcl 4 Mg Tablet 1 Tab PO TID Flonase Allergy Relief (Fluticasone Propionate) 9.9 Ml [place].susp 2 Sprays NS DAILY Furosemide 20 Mg Tablet 1 Tab PO DAILY Isosorbide Mononitrate Er (Isosorbide Mononitrate) 30 Mg Tab.er.24h 1 Tab PO DAILY Oxycontin (Oxycodone HCl) 20 Mg Tab.er.12h 20 Mg PO BID Vitals/I & O Vital Sign - Last 24 Hours 12/11/16 12/11/16 12/11/16 12/11/16 08:37 11:22 11:34 11:53 Temp 97.6 97.6 Pulse 89 Resp 20 B/P 112/90 Pulse Ox 94 O2 Delivery Room Air Nasal Cannula Nasal Cannula Nasal Cannula O2 Flow Rate 2.0 2.0 2.0 12/11/16 12/11/16 12/11/16 12/11/16 11:55 13:16 14:20 14:22 Temp 97.5 97.5 Pulse 89 101 79 Resp 24 16 B/P 122/81 110/69 Pulse Ox 91 90 O2 Delivery Nasal Cannula O2 Flow Rate 22.0 12/11/16 12/11/16 12/11/16 12/11/16 14:30 14:50 14:54 15:00 Pulse 78 B/P 114/80 116/77 O2 Delivery Nasal Cannula Nasal Cannula O2 Flow Rate 2.0 2.0 12/11/16 12/11/16 12/11/16 12/11/16 15:15 15:30 15:45 15:59 Pulse 76 84 84 80 Resp 19 B/P 116/80 120/84 106/81 107/96 Pulse Ox 93 94 94 95 O2 Delivery Nasal Cannula O2 Flow Rate 2.0 12/11/16 12/11/16 12/11/16 12/11/16 16:00 16:15 16:30 16:45 Pulse 80 80 80 80 B/P 107/96 126/87 133/95 120/89 Pulse Ox 92 99 98 99 O2 Delivery Nasal Cannula Nasal Cannula Nasal Cannula O2 Flow Rate 2.0 2.0 2.0 12/11/16 12/11/16 12/11/16 12/11/16 17:00 17:59 18:00 19:10 Pulse 78 75 74 B/P 134/72 113/86 111/78 Pulse Ox 99 93 97 O2 Delivery Nasal Cannula Room Air Nasal Cannula O2 Flow Rate 2.0 2.0 12/11/16 12/11/16 12/11/16 12/11/16 19:15 19:20 21:45 22:53 Temp 97.4 97.5 97.4 97.5 Pulse 74 74 Resp 18 20 18 B/P 111/78 115/82 Pulse Ox 96 99 O2 Delivery Nasal Cannula Nasal Cannula Nasal Cannula Nasal Cannula O2 Flow Rate 2.0 2.0 2.0 2.0 12/11/16 12/12/16 12/12/16 12/12/16 22:54 01:00 01:45 03:40 Temp 97.2 97.2 Pulse 68 Resp 18 18 B/P 109/65 Pulse Ox 96 96 96 96 O2 Delivery Room Air Nasal Cannula Nasal Cannula Nasal Cannula O2 Flow Rate 1.0 1.0 1.0 12/12/16 12/12/16 07:00 08:19 Temp 96.5 96.5 Pulse 73 Resp 20 B/P 118/69 Pulse Ox 94 97 O2 Delivery Room Air Nasal Cannula O2 Flow Rate 2.0 Intake and Output 12/11/16 12/11/16 12/12/16 15:00 23:00 07:00 Intake Total 1085 ml Output Total 600 ml Balance 1085 ml -600 ml JHONATAN VALDES MD Dec 12, 2016 08:31
[2016-12-12] MEDS: FUROSEMIDE 20 MG TABLET PO SCH (08:40)
[2016-12-12] MEDS: ASPIRIN ENTERIC COATED 81 MG TABLET.DR. PO SCH (08:41)
[2016-12-12] MEDS: OXYCODONE ER 10 MG TAB.ER.12H. PO SCH ×2 (08:42→22:05)
[2016-12-12] MEDS: LEVOFLOXACIN 500 MG TABLET PO SCH (08:42)
[2016-12-12] MEDS: POTASSIUM CHLORIDE 10 MEQ TABLET.ER. PO SCH (08:42)
[2016-12-12] MEDS: PANTOPRAZOLE 40 MG TABLET. PO SCH (08:43)
[2016-12-12] MEDS: CARVEDILOL 6.25 MG TABLET PO SCH ×2 (08:43→18:34)
[2016-12-12 10:36] VITALS: BP 104/73
--- NOTE | 2016-12-12 11:30 | PDOC2 ---
CONSULT Date of Consult Date of Consult DATE: 12/12/16 TIME: 11:25 Reason for Consult Reason for Consult: possible cholecystitis Referring Physician Referring Physician: Dr Marquez Identification/Chief Complaint Chief Complaint chest pain Source Source: Chart review, Patient History of Present Illness Reason for Visit: Admitted with chest pain and SOA. Yesterday underwent cardiac cath, EF of 15%. Now having RUQ pain and poor appetite. Not sure if pain is related/worsened by eating. No n/v Past Medical History Cardiovascular: AFIB, CAD, CHF, HTN, Hyperlipidemia, Other Pulmonary: COPD, Other CENTRAL NERVOUS SYSTEM: Other GI: GERD Heme/Onc: No pertinent hx, Other Hepatobiliary: No pertinent hx Psych: Anxiety, Depression, Other Musculoskeletal: Osteoarthritis Infectious disease: No pertinent hx Renal/: Chronic renal insuff Endocrine: Diabetes Dermatology: No pertinent hx Past Surgical History Past Surgical History: Hernia Repair, Tonsillectomy, Other (shoulder surgery, septoplasty) Family History Family History: Heart Disease, Hypertension Social History <1 pack per day ALCOHOL: none Drugs: None Lives: with Family Current Problem List Problem List Problems Medical Problems: (1) Chest pain Status: Acute Current Medications Current Medications Current Medications Albuterol/ Ipratropium (Duoneb) 3 ml 1X ONCE NEB Last administered on 07:30; Start 12/10/16 at 07:00; Stop 12/10/16 at 07:02; Status DC Promethazine HCl/ Codeine (Phenergan With Codeine) 5 ml 1X ONCE PO Last administered on 12/10/16 07:50; Start 12/10/16 at 07:15; Stop 12/10/16 at 07:16 ; Status DC Ondansetron HCl (Zofran) 4 mg PRN Q8HRS PRN IV NAUSEA/VOMITING; Start 12/10/16 at 08:15; Stop 12/11/16 at 08:14; Status DC Acetaminophen (Tylenol) 650 mg PRN Q4HRS PRN PO FEVER; Start 12/10/16 at 08:15 ; Stop 12/11/16 at 08:14; Status DC Albuterol/ Ipratropium (Duoneb) 3 ml RTQID NEB Last administered on 12/11/16 11:33; Start 12/10/16 at 12:00; Stop 12/11/16 at 11:59; Status DC Aspirin (Ecotrin) 81 mg DAILY PO Last administered on 12/12/16 08:41; Start at 12:00 Atorvastatin Calcium (Lipitor) 10 mg QHS PO Last administered on 12/11/16 21: 44; Start 12/10/16 at 21:00 Carvedilol (Coreg) 6.25 mg BIDWMEALS PO Last administered on 12/12/16 08:43; Start 12/10/16 at 17:00 Furosemide (Lasix) 20 mg DAILY PO Last administered on 12/12/16 08:40; Start 12/11/16 at 09:00 Isosorbide Mononitrate (Imdur) 30 mg DAILY PO ; Start 12/11/16 at 09:00; Stop at 14:51; Status DC Nitroglycerin (Nitrostat) 0.4 mg Q1HR PRN SL chest pain; Start 12/10/16 at 10: 15; Stop 12/10/16 at 10:22; Status DC Tizanidine HCl (Zanaflex) 4 mg PRN TID PRN PO muscle spasm Last administered on 12/10/16 12:15; Start 12/10/16 at 10:15 Non-Formulary Medication 1 puff BID IH ; Start 12/10/16 at 21:00; Stop 12/11/16 at 10:48; Status DC Albuterol Sulfate (Ventolin Neb Soln) 2.5 mg PRN Q4HRS PRN NEB SHORTNESS OF BREATH; Start 12/10/16 at 10:15 Olanzapine (Zyprexa) 10 mg QHS PO Last administered on 12/11/16 21:43; Start 12/10/16 at 21:00 Pantoprazole Sodium (Protonix) 40 mg DAILYAC PO Last administered on 12/12/16 08:43; Start 12/11/16 at 07:30 Oxycodone HCl (Roxicodone) 10 mg PRN Q6HRS PRN PO PAIN Last administered on 11:53; Start 12/10/16 at 10:15 Oxycodone HCl (Oxycontin) 20 mg Q12HR PO Last administered on 12/12/16 08:42; Start 12/10/16 at 21:00 Potassium Chloride (Klor-Con) 10 meq DAILYWBKFT PO Last administered on 08:42; Start 12/11/16 at 08:00 Nitroglycerin (Nitrostat) 0.4 mg PRN Q1HR PRN SL chest pain; Start 12/10/16 at 10:22 Iohexol (Omnipaque 300 Mg/ml) 60 ml 1X ONCE IV Last administered on 12/10/16 11:40; Start 12/10/16 at 11:00; Stop 12/10/16 at 11:01; Status DC Info (Do NOT chart on this entry -- for MONITORING) 1 each PRN DAILY PRN MC SEE COMMENTS; Start 12/10/16 at 10:45; Stop 12/12/16 at 10:44; Status DC Promethazine HCl 12.5 mg 12.5 mg PRN Q6HRS PRN PO NAUSEA/VOMITING Last administered on 12/10/16 21:58; Start 12/10/16 at 14:45 Sodium Chloride (Iv Sodium Chloride 0.9% 500ml Bag) 500 ml @ 500 mls/hr 1X ONCE IV Last administered on 12/10/16 18:38; Start 12/10/16 at 19:00; Stop 09/16 at 19:59; Status DC Levofloxacin (Levaquin) 500 mg DAILY PO Last administered on 12/12/16 08:42; Start 12/10/16 at 19:00 Methylprednisolone Sodium Succinate (Solu-Medrol 125mg Vial) 60 mg Q8HRS IV Last administered on 12/12/16 06:31; Start 12/11/16 at 07:15 Budesonide 0.5 mg 0.5 mg RTBID NEB Last administered on 12/12/16 08:18; Start 12/11/16 at 11:00 Heparin Sodium/ Sodium Chloride 1,000 ml @ As Directed STK-MED ONCE .ROUTE ; Start 12/11/16 at 13:17; Stop 12/11/16 at 13:18; Status DC Lidocaine HCl 20 ml STK-MED ONCE .ROUTE ; Start 12/11/16 at 13:17; Stop at 13:18; Status DC Iodixanol (Visipaque 320) 100 ml STK-MED ONCE .ROUTE ; Start 12/11/16 at 13:17; Stop 12/11/16 at 13:18; Status DC Nitroglycerin (Nitroglycerin) 200 mcg STK-MED ONCE .ROUTE ; Start 12/11/16 at 13 :40; Stop 12/11/16 at 13:41; Status DC Verapamil HCl (Verapamil) 5 mg STK-MED ONCE .ROUTE ; Start 12/11/16 at 13:40; Stop 12/11/16 at 13:41; Status DC Heparin Sodium (Porcine) 10,000 unit STK-MED ONCE .ROUTE ; Start 12/11/16 at 13: 40; Stop 12/11/16 at 13:41; Status DC Fentanyl Citrate (Fentanyl 2ml Vial) 100 mcg STK-MED ONCE .ROUTE ; Start at 13:40; Stop 12/11/16 at 13:41; Status DC Midazolam HCl (Versed) 2 mg STK-MED ONCE .ROUTE ; Start 12/11/16 at 13:40; Stop 12/11/16 at 13:41; Status DC Nitroglycerin (Nitroglycerin) 200 mcg 1X ONCE IART Last administered on 14:17; Start 12/11/16 at 14:15; Stop 12/11/16 at 14:22; Status DC Verapamil HCl (Verapamil) 2.5 mg 1X ONCE IART Last administered on 12/11/16 14:22; Start 12/11/16 at 14:15; Stop 12/11/16 at 14:22; Status DC Heparin Sodium (Porcine) 2,500 unit 1X ONCE IART Last administered on 14:24; Start 12/11/16 at 14:15; Stop 12/11/16 at 14:22; Status DC Heparin Sodium/ Sodium Chloride 1,000 unit 1X ONCE IART Last administered on 14:17; Start 12/11/16 at 14:15; Stop 12/11/16 at 14:22; Status DC Midazolam HCl (Versed) 2 mg 1X ONCE IV Last administered on 12/11/16 14:23; Start 12/11/16 at 14:15; Stop 12/11/16 at 14:22; Status DC Fentanyl Citrate (Fentanyl 2ml Vial) 100 mcg 1X ONCE IV Last administered on 14:20; Start 12/11/16 at 14:15; Stop 12/11/16 at 14:22; Status DC Iodixanol (Visipaque 320) 100 ml 1X ONCE IART Last administered on 12/11/16 14:17; Start 12/11/16 at 14:15; Stop 12/11/16 at 14:22; Status DC Lidocaine HCl 20 ml 1X ONCE IJ Last administered on 12/11/16 14:17; Start at 14:15; Stop 12/11/16 at 14:22; Status DC Isosorbide Mononitrate 30 mg 30 mg DAILYWLUN PO ; Start 12/12/16 at 12:00 Sodium Chloride (Iv Sodium Chloride 0.9% 250ml) 250 ml @ 50 mls/hr 1X ONCE IV Last administered on 12/11/16 15:12; Start 12/11/16 at 14:45; Stop 12/11/16 at 19:44; Status DC Insulin Aspart (Novolog) 0-7 UNITS TIDWMEALS SQ ; Start 12/12/16 at 12:00 Dextrose 12.5 gm PRN Q15MIN PRN IV SEE COMMENTS; Start 12/12/16 at 08:30 Active Scripts Active Carvedilol 6.25 Mg Tablet 6.25 Mg PO BIDWMEALS Guaifenesin Dm Syrup (Guaifenesin/Dextromethorphan) 5 Ml Syrup 10 Ml PO PRN Q4HRS PRN Proair Hfa Inhaler (Albuterol Sulfate) 8.5 Gm Hfa.aer.ad 2 Puff INH QID PRN Potassium Chloride 10 Meq Capsule.er 20 Meq PO DAILY do not start until 12/11/16 Zyprexa (Olanzapine) 20 Mg Tablet 0.5 Tab PO QHS Reported Oxycodone Hcl 10 Mg Tablet 10 Mg PO Q6HRS PRN Aspir 81 (Aspirin) 81 Mg Tablet.dr 1 Tab PO DAILY Lipitor (Atorvastatin Calcium) 10 Mg Tablet 1 Tab PO QHS Breo Ellipta 200-25 Mcg INH (Fluticasone/Vilanterol) 1 Each Blst.w.dev 1 Puff IH BID Lyrica (Pregabalin) 150 Mg Capsule 1 Cap PO DAILY Prilosec Otc (Omeprazole Magnesium) 20 Mg Tablet.dr 1 Tab PO DAILY Promethazine Hcl 6.25 Mg/5 Ml Syrup 5 Ml PO QID Nitrostat (Nitroglycerin) 0.4 Mg Tab.subl 1 Tab SL UD Tizanidine Hcl 4 Mg Tablet 1 Tab PO TID Flonase Allergy Relief (Fluticasone Propionate) 9.9 Ml [place].susp 2 Sprays NS DAILY Furosemide 20 Mg Tablet 1 Tab PO DAILY Isosorbide Mononitrate Er (Isosorbide Mononitrate) 30 Mg Tab.er.24h 1 Tab PO DAILY Oxycontin (Oxycodone HCl) 20 Mg Tab.er.12h 20 Mg PO BID Allergies Allergies: Coded Allergies: No Known Drug Allergies (Unverified , 11/29/16) ROS General: YES: Chills, Other (fevers) PSYCHOLOGICAL ROS: YES: Anxiety, Depression Eyes: No Blurry vision, No Double vision HEENT: No: Heacaches, Sore Throat Hematological and Lymphatic: YES: Brusing, No: Blood Clots Respiratory: YES: Shortness of breath, No: Cough Cardiovascular: yes Chest Pain, No Palpitations Gastrointestinal: Yes Other (see hpi) Genitourinary: No Dysuria, No Hematuria Musculoskeletal: No Joint Pain, No Muscle Pain Neurological: No Confusion, No Numbness/Tingling Skin: No Pruritus, No Rash Physical Exam General: Alert, Oriented X3, Cooperative, No acute distress HEENT: PERRLA, Mucous membr. moist/pink Lungs: Other (diminished, on 02) Heart: Regular rate, Normal S1, Normal S2 Abdomen: Soft, Other (mild tenderness to RUQ) Extremities: No clubbing, No cyanosis Skin: No breakdown, No significant lesion Neuro: Normal speech, Sensation intact Psych/Mental Status: Mental status NL, Mood NL MUSCULOSKELETAL: No deformity, No swelling Vitals VITALS Vital Signs Date Time Temp Pulse Resp B/P Pulse Ox O2 Delivery O2 Flow Rate FiO2 12/12/16 10:36 97.5 78 17 104/73 95 Nasal Cannula 1.0 97.5 Labs Labs Laboratory Tests Test 12/10/16 14:05 12/10/16 19:45 12/10/16 20:30 12/11/16 04:10 Troponin I Quantitative 0.107ng/mL (0.000-0.055) 0.089ng/mL (0.000-0.055) Glucose (Fingerstick) 94mg/dL (70-99) Sodium Level 131mmol/L (136-145) Potassium Level 4.5mmol/L (3.5-5.1) Chloride Level 96mmol/L (98-107) Carbon Dioxide Level 27mmol/L (21-32) Anion Gap 8 (6-14) Blood Urea Nitrogen 22mg/dL (8-26) Creatinine 1.5mg/dL (0.7-1.3) Estimated GFR (Cockcroft-Gault) 58.0 Glucose Level 123mg/dL (70-99) Calcium Level 8.3mg/dL (8.5-10.1) Test 12/11/16 08:12 12/11/16 12:18 12/11/16 14:10 12/11/16 17:31 Glucose (Fingerstick) 144mg/dL (70-99) 179mg/dL (70-99) 235mg/dL (70-99) O2 Saturation 93% (92-99) Arterial Blood pH 7.42 (7.35-7.45) Arterial Blood pCO2 at Patient Temp 39mmHg (35-46) Arterial Blood pO2 at Patient Temp 69mmHg (65-108) Arterial Blood HCO3 25mmol/L (21-28) Arterial Blood Base Excess 0mmol/L (-3-3) FiO2 28 Test 12/11/16 21:47 12/12/16 03:40 Glucose (Fingerstick) 239mg/dL (70-99) Sodium Level 134mmol/L (136-145) Potassium Level 4.9mmol/L (3.5-5.1) Chloride Level 96mmol/L (98-107) Carbon Dioxide Level 28mmol/L (21-32) Anion Gap 10 (6-14) Blood Urea Nitrogen 33mg/dL (8-26) Creatinine 1.5mg/dL (0.7-1.3) Estimated GFR (Cockcroft-Gault) 58.0 Glucose Level 180mg/dL (70-99) Calcium Level 8.8mg/dL (8.5-10.1) Laboratory Tests Test 12/11/16 12:18 12/11/16 14:10 12/11/16 17:31 12/11/16 21:47 Glucose (Fingerstick) 179mg/dL (70-99) 235mg/dL (70-99) 239mg/dL (70-99) O2 Saturation 93% (92-99) Arterial Blood pH 7.42 (7.35-7.45) Arterial Blood pCO2 at Patient Temp 39mmHg (35-46) Arterial Blood pO2 at Patient Temp 69mmHg (65-108) Arterial Blood HCO3 25mmol/L (21-28) Arterial Blood Base Excess 0mmol/L (-3-3) FiO2 28 Test 12/12/16 03:40 Sodium Level 134mmol/L (136-145) Potassium Level 4.9mmol/L (3.5-5.1) Chloride Level 96mmol/L (98-107) Carbon Dioxide Level 28mmol/L (21-32) Anion Gap 10 (6-14) Blood Urea Nitrogen 33mg/dL (8-26) Creatinine 1.5mg/dL (0.7-1.3) Estimated GFR (Cockcroft-Gault) 58.0 Glucose Level 180mg/dL (70-99) Calcium Level 8.8mg/dL (8.5-10.1) Assessment/Plan Assessment/Plan chest pain, cardiac cath EF at 15% CHF, lung cancer, COPD, HTN, CKD tobaccoism RUQ pain--US with stones, gb wall thickening--will check HIDA for cystic duct obstruction/cholecystitis poor surgical candidate due to history CHRISTOPHER HOOD APRN Dec 12, 2016 11:30
[2016-12-12] MEDS: ISOSORBIDE MONONITRATE ER 30 MG TAB.ER.24H PO SCH (12:00)
[2016-12-12] MEDS: INSULIN ASPART 300 UNITS/3 ML INSULN.PEN SQ SCH ×2 (12:34→18:40)
--- NOTE | 2016-12-12 15:16 | PDOC ---
LELAMONIKA Erickson AESTHETICIAN 12/12/16 1516: CARDIO Progress Notes Date and Time Date of Service 12/12/2016 Time of Evaluation 1155 Subjective Subjective: No Chest Pain, No shortness of breath, No Palpitations, No Dizziness, Other (c/o abdominal pain; now denying dyspnea) Vitals Vitals Vital Signs Date Time Temp Pulse Resp B/P Pulse Ox O2 Delivery O2 Flow Rate FiO2 12/12/16 12:34 Nasal Cannula 1.5 12/12/16 12:00 72 99/68 12/12/16 10:36 97.5 17 95 97.5 Weight Weight [ ] Input and Output Intake and Output Intake and Output 12/12/16 07:00 Intake Total 1085 ml Output Total 600 ml Balance 485 ml Intake Oral 1000 ml IV Total 85 ml Output Urine Total 600 ml # Voids 3 Laboratory Labs Laboratory Tests Test 12/11/16 17:31 12/11/16 21:47 12/12/16 03:40 12/12/16 11:36 Glucose (Fingerstick) 235mg/dL (70-99) 239mg/dL (70-99) 228mg/dL (70-99) Sodium Level 134mmol/L (136-145) Potassium Level 4.9mmol/L (3.5-5.1) Chloride Level 96mmol/L (98-107) Carbon Dioxide Level 28mmol/L (21-32) Anion Gap 10 (6-14) Blood Urea Nitrogen 33mg/dL (8-26) Creatinine 1.5mg/dL (0.7-1.3) Estimated GFR (Cockcroft-Gault) 58.0 Glucose Level 180mg/dL (70-99) Calcium Level 8.8mg/dL (8.5-10.1) Physical Exam HEENT: Neck Supple W Full Motion Chest: Symmetric LUNGS: Other ( soft basilar crackles posteriorly) Heart: S1S2, RRR, other (ICD in left pectoral region) Abdomen: Soft N/T Extremities: No Edema Neurology: alert, follow commands Diagnostic Tests Echocardiogram: Other (LVEF 20-25% on echo 11/29/2016; mild MR; mild to mod TR; PA = 48 mm Hg) Assessment Assessment 1. left shoulder pain troponin peaked @ 0.112 EKG without acute changes recent MPI with fixed defect cath 12/11/2016 without significant obstructive disease 2. syncope suspect this occurs as pt is bearing down with having pain - advised to lay down and deep breath 3 . Chronic systolic heart failure continue diuretics will uptitrate BB BP will not currently support addition of ACEI 5. Non ischemic cardiomyopathy s/p AICD LVEF 20-25% recent device check with normal function continue medical management advised not to lift more than 10# sodium and fluid restriction discussed with 6. h/o AFIB maintaining SR ASA for stroke prophylaxis 7. Hyperlipidemia LDL 102 continue statin 8. Hypertension controlled hypotensive on presentation and was bolused with IV fluids 9. CAD non-obstructive CAD per cath 2013 and 2016 medical management 10. psych history - anxiety, depression, PTSD ? impacting cardiac history 11. abdominal pain U/S with gallstones per primary care KRISTI REYES MD 12/12/16 0999: CARDIO Progress Notes Plan Plan Patient seen and examined. Agree with above nurse practitioner noted. No acute events overnight. Normal cardiac catheterization without any obstructive coronary disease. He has severe LV dysfunction area No significant abnormalities noted on the cardiac exam. Medications reviewed. Supportive care from a cardiac standpoint. Given his heart failure history he would be deemed moderate risk from a standpoint of any surgical intervention if necessary. He appears to be optimized at this time. We'll follow along. MONIKA VOGEL APRN Dec 12, 2016 15:16 KRISTI REYES MD Dec 12, 2016 18:39
[2016-12-12 19:00] VITALS: BP 118/80
[2016-12-12] MEDS: PROMETHAZINE 6.25 MG/5 ML SYRUP. PO PRN (19:51)
[2016-12-12] MEDS: ATORVASTATIN CALCIUM 10 MG TABLET. PO SCH (22:04)
[2016-12-12] MEDS: OLANZAPINE 5 MG TABLET. PO SCH (22:04)
[2016-12-12 23:00] VITALS: BP 119/84
[2016-12-13] VITALS (7 sets, daily range): BP systolic 100–132; BP diastolic 64–92
[2016-12-13] MEDS: methylPREDNISolone SOD SUCC PF 125 MG/2 ML VIAL. IV SCH ×2 (06:02→21:02)
[2016-12-13] MEDS: PROMETHAZINE 6.25 MG/5 ML SYRUP. PO PRN (06:02)
[2016-12-13] MEDS: OXYCODONE IR 5 MG TABLET. PO PRN (07:12)
[2016-12-13] MEDS: BUDESONIDE 0.5 MG/2 ML NEBU NEB SCH ×3 (08:00→20:09)
[2016-12-13] MEDS: POTASSIUM CHLORIDE 10 MEQ TABLET.ER. PO SCH (08:00)
[2016-12-13] MEDS ORDERED: SINCALIDE 1.61 MCG in IV NORMAL SALINE 50ML 30 ML IV ONE (08:15)
[2016-12-13] MEDS: FUROSEMIDE 20 MG TABLET PO SCH (10:43)
[2016-12-13] MEDS: LEVOFLOXACIN 500 MG TABLET PO SCH (10:43)
[2016-12-13] MEDS: ASPIRIN ENTERIC COATED 81 MG TABLET.DR. PO SCH (10:43)
[2016-12-13] MEDS: CARVEDILOL 6.25 MG TABLET PO SCH ×2 (10:44→17:43)
[2016-12-13] MEDS: PANTOPRAZOLE 40 MG TABLET. PO SCH (10:44)
[2016-12-13] MEDS: OXYCODONE ER 10 MG TAB.ER.12H. PO SCH ×2 (10:45→21:02)
[2016-12-13] MEDS: INSULIN ASPART 300 UNITS/3 ML INSULN.PEN SQ SCH ×3 (10:50→17:47)
--- NOTE | 2016-12-13 11:14 | PDOC ---
SURGICAL PROGRESS NOTE Subjective Up to chair no new c/o Vital Signs Vital Signs Date Time Temp Pulse Resp B/P Pulse Ox O2 Delivery O2 Flow Rate FiO2 12/13/16 10:51 96.0 73 17 114/82 93 Room Air 96.0 12/13/16 08:12 1.0 I&O Intake and Output 12/13/16 07:00 Intake Total 1520 ml Output Total 600 ml Balance 920 ml Intake Oral 1520 ml Output Urine Total 600 ml PATIENT HAS A PAGE: No General: Alert, Oriented X3, No acute distress Labs Laboratory Tests Test 12/11/16 12:18 12/11/16 14:10 12/11/16 17:31 12/11/16 21:47 Glucose (Fingerstick) 179mg/dL (70-99) 235mg/dL (70-99) 239mg/dL (70-99) O2 Saturation 93% (92-99) Arterial Blood pH 7.42 (7.35-7.45) Arterial Blood pCO2 at Patient Temp 39mmHg (35-46) Arterial Blood pO2 at Patient Temp 69mmHg (65-108) Arterial Blood HCO3 25mmol/L (21-28) Arterial Blood Base Excess 0mmol/L (-3-3) FiO2 28 Test 12/12/16 03:40 12/12/16 11:36 12/12/16 16:36 12/12/16 21:03 Sodium Level 134mmol/L (136-145) Potassium Level 4.9mmol/L (3.5-5.1) Chloride Level 96mmol/L (98-107) Carbon Dioxide Level 28mmol/L (21-32) Anion Gap 10 (6-14) Blood Urea Nitrogen 33mg/dL (8-26) Creatinine 1.5mg/dL (0.7-1.3) Estimated GFR (Cockcroft-Gault) 58.0 Glucose Level 180mg/dL (70-99) Calcium Level 8.8mg/dL (8.5-10.1) Glucose (Fingerstick) 228mg/dL (70-99) 182mg/dL (70-99) 208mg/dL (70-99) Test 12/13/16 07:21 Glucose (Fingerstick) 197mg/dL (70-99) Laboratory Tests Test 12/12/16 11:36 12/12/16 16:36 12/12/16 21:03 12/13/16 07:21 Glucose (Fingerstick) 228mg/dL (70-99) 182mg/dL (70-99) 208mg/dL (70-99) 197mg/dL (70-99) I have reviewed the following PIPIDA does not suggest acute cholecystitis Problem List Problems Medical Problems: (1) Chest pain Status: Acute Assessment/Plan cholelithiasis low GB EF cardiac issues d/w pt and his at the bedside would recommend low fat diet, no alcohol intake and expectant treatment of his gall stones may need surgical intervention at some point,but if able to avoid it would be preferable Problems: ASHLEY TORRES MD Dec 13, 2016 11:14
[2016-12-13] MEDS: ISOSORBIDE MONONITRATE ER 30 MG TAB.ER.24H PO SCH (12:26)
--- NOTE | 2016-12-13 12:31 | PDOC ---
PROGRESS NOTES Subjective Subjective Patient reports some DIEGO persists. Some RUQ pain also but not worsening. Objective Objective Vital Signs Date Time Temp Pulse Resp B/P Pulse Ox O2 Delivery O2 Flow Rate FiO2 12/13/16 11:27 98 Nasal Cannula 1.0 12/13/16 10:51 96.0 73 17 114/82 96.0 Intake and Output 12/13/16 07:00 Intake Total 1520 ml Output Total 600 ml Balance 920 ml Intake Oral 1520 ml Output Urine Total 600 ml Physical Exam Abdomen: Normal bowel sounds, Soft, Other (mild R UQ TTP) Heart: Regular rate Extremities: No edema General: Alert, Oriented X3, No acute distress Lungs: Other (BS decreased throughout, no wheezes heard) Assessment Assessment Problems Medical Problems: (1) Chest pain Status: Acute Plan Plan of Care 1. Severe cardiomyopathy - presently stable, continue meds as per Cardiology. 2. AE COPD - slowly improving. Will decrease Solumedrol, continue nebs and O2. Possible discharge home tomorrow, will order 6 minute walk then. Patient also needs nebulizer for home use. 3. cholelithiasis - Dr Fernandez states no cholecystitis on scan today. Patient advised low fat diet. Does not seem to need surgery at this time. 4. syncope - patient's reports he has had "spells" for years. Occur at rest or with exertion. Appears somewhat confused afterwards, no loss of B/B control. No previous neurology evaluation for this, have consulted Dr Prieto. Does not appear to be cardiac in origin as telemetry is unremarkable. 5. hyperglycemia - due to steroids, continue SS insulin. 6. chronic pain - stable with his usual po meds. 7. bipolar mood disorder - stable, continue home meds. Comment Review of Relevant I have reviewed the following items georgette (where applicable) has been applied. Labs Laboratory Tests Test 12/11/16 14:10 12/11/16 17:31 12/11/16 21:47 12/12/16 03:40 O2 Saturation 93% (92-99) Arterial Blood pH 7.42 (7.35-7.45) Arterial Blood pCO2 at Patient Temp 39mmHg (35-46) Arterial Blood pO2 at Patient Temp 69mmHg (65-108) Arterial Blood HCO3 25mmol/L (21-28) Arterial Blood Base Excess 0mmol/L (-3-3) FiO2 28 Glucose (Fingerstick) 235mg/dL (70-99) 239mg/dL (70-99) Sodium Level 134mmol/L (136-145) Potassium Level 4.9mmol/L (3.5-5.1) Chloride Level 96mmol/L (98-107) Carbon Dioxide Level 28mmol/L (21-32) Anion Gap 10 (6-14) Blood Urea Nitrogen 33mg/dL (8-26) Creatinine 1.5mg/dL (0.7-1.3) Estimated GFR (Cockcroft-Gault) 58.0 Glucose Level 180mg/dL (70-99) Calcium Level 8.8mg/dL (8.5-10.1) Test 12/12/16 11:36 12/12/16 16:36 12/12/16 21:03 12/13/16 07:21 Glucose (Fingerstick) 228mg/dL (70-99) 182mg/dL (70-99) 208mg/dL (70-99) 197mg/dL (70-99) Test 12/13/16 11:32 Glucose (Fingerstick) 205mg/dL (70-99) Laboratory Tests Test 12/12/16 16:36 12/12/16 21:03 12/13/16 07:21 12/13/16 11:32 Glucose (Fingerstick) 182mg/dL (70-99) 208mg/dL (70-99) 197mg/dL (70-99) 205mg/dL (70-99) Medications Current Medications Albuterol/ Ipratropium (Duoneb) 3 ml 1X ONCE NEB Last administered on 07:30; Start 12/10/16 at 07:00; Stop 12/10/16 at 07:02; Status DC Promethazine HCl/ Codeine (Phenergan With Codeine) 5 ml 1X ONCE PO Last administered on 12/10/16 07:50; Start 12/10/16 at 07:15; Stop 12/10/16 at 07:16 ; Status DC Ondansetron HCl (Zofran) 4 mg PRN Q8HRS PRN IV NAUSEA/VOMITING; Start 12/10/16 at 08:15; Stop 12/11/16 at 08:14; Status DC Acetaminophen (Tylenol) 650 mg PRN Q4HRS PRN PO FEVER; Start 12/10/16 at 08:15 ; Stop 12/11/16 at 08:14; Status DC Albuterol/ Ipratropium (Duoneb) 3 ml RTQID NEB Last administered on 12/11/16 11:33; Start 12/10/16 at 12:00; Stop 12/11/16 at 11:59; Status DC Aspirin (Ecotrin) 81 mg DAILY PO Last administered on 12/13/16 10:43; Start at 12:00 Atorvastatin Calcium (Lipitor) 10 mg QHS PO Last administered on 12/12/16 22: 04; Start 12/10/16 at 21:00 Carvedilol (Coreg) 6.25 mg BIDWMEALS PO Last administered on 12/13/16 10:44; Start 12/10/16 at 17:00 Furosemide (Lasix) 20 mg DAILY PO Last administered on 12/13/16 10:43; Start 12/11/16 at 09:00 Isosorbide Mononitrate (Imdur) 30 mg DAILY PO ; Start 12/11/16 at 09:00; Stop at 14:51; Status DC Nitroglycerin (Nitrostat) 0.4 mg Q1HR PRN SL chest pain; Start 12/10/16 at 10: 15; Stop 12/10/16 at 10:22; Status DC Tizanidine HCl (Zanaflex) 4 mg PRN TID PRN PO muscle spasm Last administered on 12/10/16 12:15; Start 12/10/16 at 10:15 Non-Formulary Medication 1 puff BID IH ; Start 12/10/16 at 21:00; Stop 12/11/16 at 10:48; Status DC Albuterol Sulfate (Ventolin Neb Soln) 2.5 mg PRN Q4HRS PRN NEB SHORTNESS OF BREATH; Start 12/10/16 at 10:15 Olanzapine (Zyprexa) 10 mg QHS PO Last administered on 12/12/16 22:04; Start 12/10/16 at 21:00 Pantoprazole Sodium (Protonix) 40 mg DAILYAC PO Last administered on 12/13/16 10:44; Start 12/11/16 at 07:30 Oxycodone HCl (Roxicodone) 10 mg PRN Q6HRS PRN PO PAIN Last administered on 07:12; Start 12/10/16 at 10:15 Oxycodone HCl (Oxycontin) 20 mg Q12HR PO Last administered on 12/13/16 10:45; Start 12/10/16 at 21:00 Potassium Chloride (Klor-Con) 10 meq DAILYWBKFT PO Last administered on 08:42; Start 12/11/16 at 08:00 Nitroglycerin (Nitrostat) 0.4 mg PRN Q1HR PRN SL chest pain; Start 12/10/16 at 10:22 Iohexol (Omnipaque 300 Mg/ml) 60 ml 1X ONCE IV Last administered on 12/10/16 11:40; Start 12/10/16 at 11:00; Stop 12/10/16 at 11:01; Status DC Info (Do NOT chart on this entry -- for MONITORING) 1 each PRN DAILY PRN MC SEE COMMENTS; Start 12/10/16 at 10:45; Stop 12/12/16 at 10:44; Status DC Promethazine HCl 12.5 mg 12.5 mg PRN Q6HRS PRN PO NAUSEA/VOMITING Last administered on 12/13/16 06:02; Start 12/10/16 at 14:45 Sodium Chloride (Iv Sodium Chloride 0.9% 500ml Bag) 500 ml @ 500 mls/hr 1X ONCE IV Last administered on 12/10/16 18:38; Start 12/10/16 at 19:00; Stop 09/16 at 19:59; Status DC Levofloxacin (Levaquin) 500 mg DAILY PO Last administered on 12/13/16 10:43; Start 12/10/16 at 19:00 Methylprednisolone Sodium Succinate (Solu-Medrol 125mg Vial) 60 mg Q8HRS IV Last administered on 12/13/16 06:02; Start 12/11/16 at 07:15 Budesonide 0.5 mg 0.5 mg RTBID NEB Last administered on 12/13/16 11:25; Start 12/11/16 at 11:00 Heparin Sodium/ Sodium Chloride 1,000 ml @ As Directed STK-MED ONCE .ROUTE ; Start 12/11/16 at 13:17; Stop 12/11/16 at 13:18; Status DC Lidocaine HCl 20 ml STK-MED ONCE .ROUTE ; Start 12/11/16 at 13:17; Stop at 13:18; Status DC Iodixanol (Visipaque 320) 100 ml STK-MED ONCE .ROUTE ; Start 12/11/16 at 13:17; Stop 12/11/16 at 13:18; Status DC Nitroglycerin (Nitroglycerin) 200 mcg STK-MED ONCE .ROUTE ; Start 12/11/16 at 13 :40; Stop 12/11/16 at 13:41; Status DC Verapamil HCl (Verapamil) 5 mg STK-MED ONCE .ROUTE ; Start 12/11/16 at 13:40; Stop 12/11/16 at 13:41; Status DC Heparin Sodium (Porcine) 10,000 unit STK-MED ONCE .ROUTE ; Start 12/11/16 at 13: 40; Stop 12/11/16 at 13:41; Status DC Fentanyl Citrate (Fentanyl 2ml Vial) 100 mcg STK-MED ONCE .ROUTE ; Start at 13:40; Stop 12/11/16 at 13:41; Status DC Midazolam HCl (Versed) 2 mg STK-MED ONCE .ROUTE ; Start 12/11/16 at 13:40; Stop 12/11/16 at 13:41; Status DC Nitroglycerin (Nitroglycerin) 200 mcg 1X ONCE IART Last administered on 14:17; Start 12/11/16 at 14:15; Stop 12/11/16 at 14:22; Status DC Verapamil HCl (Verapamil) 2.5 mg 1X ONCE IART Last administered on 12/11/16 14:22; Start 12/11/16 at 14:15; Stop 12/11/16 at 14:22; Status DC Heparin Sodium (Porcine) 2,500 unit 1X ONCE IART Last administered on 14:24; Start 12/11/16 at 14:15; Stop 12/11/16 at 14:22; Status DC Heparin Sodium/ Sodium Chloride 1,000 unit 1X ONCE IART Last administered on 14:17; Start 12/11/16 at 14:15; Stop 12/11/16 at 14:22; Status DC Midazolam HCl (Versed) 2 mg 1X ONCE IV Last administered on 12/11/16 14:23; Start 12/11/16 at 14:15; Stop 12/11/16 at 14:22; Status DC Fentanyl Citrate (Fentanyl 2ml Vial) 100 mcg 1X ONCE IV Last administered on 14:20; Start 12/11/16 at 14:15; Stop 12/11/16 at 14:22; Status DC Iodixanol (Visipaque 320) 100 ml 1X ONCE IART Last administered on 12/11/16 14:17; Start 12/11/16 at 14:15; Stop 12/11/16 at 14:22; Status DC Lidocaine HCl 20 ml 1X ONCE IJ Last administered on 12/11/16 14:17; Start at 14:15; Stop 12/11/16 at 14:22; Status DC Isosorbide Mononitrate 30 mg 30 mg DAILYWLUN PO ; Start 12/12/16 at 12:00 Sodium Chloride (Iv Sodium Chloride 0.9% 250ml) 250 ml @ 50 mls/hr 1X ONCE IV Last administered on 12/11/16 15:12; Start 12/11/16 at 14:45; Stop 12/11/16 at 19:44; Status DC Insulin Aspart (Novolog) 0-7 UNITS TIDWMEALS SQ Last administered on 12/13/16 10:50; Start 12/12/16 at 12:00 Dextrose 12.5 gm 12.5 gm PRN Q15MIN PRN IV SEE COMMENTS; Start 12/12/16 at 08: 30 Sincalide/Sodium Chloride (Kinevac/Iv Sodium Chloride 0.9% 50ml) 30 ml @ 120 mls/hr 1X ONCE IV Last administered on 12/13/16 08:15; Start 12/13/16 at 08: 15; Stop 12/13/16 at 08:29; Status DC Active Scripts Active Carvedilol 6.25 Mg Tablet 6.25 Mg PO BIDWMEALS Guaifenesin Dm Syrup (Guaifenesin/Dextromethorphan) 5 Ml Syrup 10 Ml PO PRN Q4HRS PRN Proair Hfa Inhaler (Albuterol Sulfate) 8.5 Gm Hfa.aer.ad 2 Puff INH QID PRN Potassium Chloride 10 Meq Capsule.er 20 Meq PO DAILY do not start until 12/11/16 Zyprexa (Olanzapine) 20 Mg Tablet 0.5 Tab PO QHS Reported Oxycodone Hcl 10 Mg Tablet 10 Mg PO Q6HRS PRN Aspir 81 (Aspirin) 81 Mg Tablet.dr 1 Tab PO DAILY Lipitor (Atorvastatin Calcium) 10 Mg Tablet 1 Tab PO QHS Breo Ellipta 200-25 Mcg INH (Fluticasone/Vilanterol) 1 Each Blst.w.dev 1 Puff IH BID Lyrica (Pregabalin) 150 Mg Capsule 1 Cap PO DAILY Prilosec Otc (Omeprazole Magnesium) 20 Mg Tablet.dr 1 Tab PO DAILY Promethazine Hcl 6.25 Mg/5 Ml Syrup 5 Ml PO QID Nitrostat (Nitroglycerin) 0.4 Mg Tab.subl 1 Tab SL UD Tizanidine Hcl 4 Mg Tablet 1 Tab PO TID Flonase Allergy Relief (Fluticasone Propionate) 9.9 Ml [place].susp 2 Sprays NS DAILY Furosemide 20 Mg Tablet 1 Tab PO DAILY Isosorbide Mononitrate Er (Isosorbide Mononitrate) 30 Mg Tab.er.24h 1 Tab PO DAILY Oxycontin (Oxycodone HCl) 20 Mg Tab.er.12h 20 Mg PO BID Vitals/I & O Vital Sign - Last 24 Hours 12/12/16 12/12/16 12/12/16 12/12/16 15:21 18:34 19:00 19:08 Temp 97.7 97.7 Pulse 69 72 72 Resp 17 B/P 118/80 118/80 Pulse Ox 100 97 O2 Delivery Nasal Cannula Nasal Cannula O2 Flow Rate 1.0 2.0 12/12/16 12/12/16 12/12/16 12/13/16 19:40 22:05 23:00 02:05 Temp 98.2 98.2 Pulse 72 Resp 20 20 20 B/P 119/84 Pulse Ox 96 93 O2 Delivery Nasal Cannula Nasal Cannula Nasal Cannula Nasal Cannula O2 Flow Rate 1.5 1.0 1.0 1.0 12/13/16 12/13/16 12/13/16 12/13/16 03:00 07:00 07:12 08:00 Temp 97.9 97.9 Pulse 72 73 Resp 18 20 20 B/P 122/75 115/81 Pulse Ox 93 95 93 O2 Delivery Nasal Cannula Room Air Nasal Cannula Room Air O2 Flow Rate 1.0 1.0 12/13/16 12/13/16 12/13/16 12/13/16 08:12 09:26 10:44 10:45 Pulse 75 75 Resp 18 18 18 B/P 132/92 132/92 Pulse Ox 98 98 O2 Delivery Nasal Cannula Room Air O2 Flow Rate 1.0 12/13/16 12/13/16 10:51 11:27 Temp 96.0 96.0 Pulse 73 Resp 17 B/P 114/82 Pulse Ox 93 98 O2 Delivery Room Air Nasal Cannula O2 Flow Rate 1.0 Intake and Output 12/12/16 12/12/16 12/13/16 15:00 23:00 07:00 Intake Total 1280 ml 240 ml Output Total 350 ml 250 ml Balance -350 ml 1280 ml -10 ml JHONATAN VALDES MD Dec 13, 2016 12:31
--- NOTE | 2016-12-13 15:28 | RAD ---
Radionuclide hepatobiliary scan, 12/13/2016: History: Abdominal pain Following IV injection of 5.5 mCi of technetium 99m Choletec there was prompt uptake of the radionuclide from the blood stream by the liver. Activity is present in the bile ducts at 15 minutes and in the gallbladder and small bowel at 20 minutes. Additional imaging of the gallbladder was performed following IV injection of 1.6 mcg of cholecystokinin. The gallbladder ejection fraction was calculated at 23%. 30-50% is considered to be the borderline low range. IMPRESSION: 1. No evidence of cystic duct or common bile duct obstruction. 2. Low gallbladder ejection fraction of 23%.
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
[2016-12-13] MEDS ORDERED: IOHEXOL 300 MG/ML 75 ML VIAL IV ONE (17:00)
[2016-12-13] MEDS ORDERED: CONTRAST GIVEN MC PRN (17:00)
[2016-12-13] MEDS: OLANZAPINE 5 MG TABLET. PO SCH (21:03)
[2016-12-13] MEDS: ATORVASTATIN CALCIUM 10 MG TABLET. PO SCH (21:03)
[2016-12-13] MEDS: LEVETIRACETAM 500 MG TABLET PO SCH (21:03)
[2016-12-14 03:11] VITALS: BP 109/70
[2016-12-14 03:24] LABS: HEMATOCRIT 43.9 % (39.0-53.0); HEMOGLOBIN 13.9 g/dL (13.0-17.5); RED BLOOD COUNT 4.41 x10^6/uL (4.30-5.70); RED CELL DISTRIBUTION WIDTH 14.9 % (11.5-14.5)
[2016-12-14 03:38] LABS: CALCIUM 8.7 mg/dL (8.5-10.1); CREATININE 1.6 mg/dL (0.7-1.3); GFR 53.8; POTASSIUM 4.8 mmol/L (3.5-5.1)
[2016-12-14] MEDS: PANTOPRAZOLE 40 MG TABLET. PO SCH (06:16)
[2016-12-14 07:00] VITALS: BP 126/78
[2016-12-14] MEDS: BUDESONIDE 0.5 MG/2 ML NEBU NEB SCH (07:20)
--- NOTE | 2016-12-14 07:20 | RAD ---
CT of the head with and without contrast, 12/13/2016: History: Seizures, head injury, history of lung cancer The ventricles are within normal limits in size. There is no shift of the midline structures. There is no evidence of acute intracranial hemorrhage or mass effect. The postcontrast scans show no areas of abnormal enhancement. A small air-fluid level is present in the sphenoid sinus. No skull fracture is evident. IMPRESSION: 1. No acute intracranial abnormality is detected. 2. Small amount of fluid in the sphenoid sinus likely on an inflammatory basis. PQRS Compliance Statement: One or more of the following individualized dose reduction techniques were utilized for this examination: 1. Automated exposure control 2. Adjustment of the mA and/or kV according to patient size 3. Use of iterative reconstruction technique
[2016-12-14] MEDS: INSULIN ASPART 300 UNITS/3 ML INSULN.PEN SQ SCH ×2 (08:00→12:00)
[2016-12-14] MEDS: OXYCODONE ER 10 MG TAB.ER.12H. PO SCH (09:00)
--- NOTE | 2016-12-14 09:50 | PDOC ---
PROGRESS NOTES Assessment Problems Medical Problems: (1) Chest pain Status: Acute Syncope, strong suspicion for psychogenic nonepileptic seizures, but tongue- biting concerning History of traumatic brain injury History of being on Dilantin 20 years ago Cognitive deficits Cholelithiasis Severe cardiomyopathy which of course can by itself cause syncope Plan Levetiracetam. Await electroencephalogram Subjective no complaints Objective Vital Signs Date Time Temp Pulse Resp B/P Pulse Ox O2 Delivery O2 Flow Rate FiO2 12/14/16 07:20 92 Room Air 12/14/16 03:11 97.4 64 18 109/70 97.4 12/14/16 01:03 1.0 Intake and Output 12/14/16 07:00 Intake Total 1260 ml Output Total 1200 ml Balance 60 ml Intake Oral 1260 ml Output Urine Total 1200 ml # Voids 1 PHYSICAL EXAM Patient seen in EEG lab Alert. Oriented to time, place and person. PERRL. EOMI. CN: no focal findings. Muscle tone: normal. Muscle strength: 5/5 DTR: 2+ Plantar reflex: flexor Gait: not examined in bed. Sensory exam: no abnormal findings. No cerebellar signs elicited. Review of Relevant I have reviewed the following items georgette (where applicable) has been applied. Labs Laboratory Tests Test 12/12/16 11:36 12/12/16 16:36 12/12/16 21:03 12/13/16 07:21 Glucose (Fingerstick) 228mg/dL (70-99) 182mg/dL (70-99) 208mg/dL (70-99) 197mg/dL (70-99) Test 12/13/16 11:32 12/13/16 16:38 12/13/16 20:54 12/14/16 03:00 Glucose (Fingerstick) 205mg/dL (70-99) 158mg/dL (70-99) 244mg/dL (70-99) White Blood Count 17.0x10^3/uL (4.0-11.0) Red Blood Count 4.41x10^6/uL (4.30-5.70) Hemoglobin 13.9g/dL (13.0-17.5) Hematocrit 43.9% (39.0-53.0) Mean Corpuscular Volume 100fL (79-100) Mean Corpuscular Hemoglobin 32pg (25-35) Mean Corpuscular Hemoglobin Concent 32g/dL (31-37) Red Cell Distribution Width 14.9% (11.5-14.5) Platelet Count 183x10^3/uL (140-400) Sodium Level 138mmol/L (136-145) Potassium Level 4.8mmol/L (3.5-5.1) Chloride Level 101mmol/L (98-107) Carbon Dioxide Level 29mmol/L (21-32) Anion Gap 8 (6-14) Blood Urea Nitrogen 40mg/dL (8-26) Creatinine 1.6mg/dL (0.7-1.3) Estimated GFR (Cockcroft-Gault) 53.8 Glucose Level 228mg/dL (70-99) Calcium Level 8.7mg/dL (8.5-10.1) Test 12/14/16 07:25 Glucose (Fingerstick) 199mg/dL (70-99) Laboratory Tests Test 12/13/16 11:32 12/13/16 16:38 12/13/16 20:54 12/14/16 03:00 Glucose (Fingerstick) 205mg/dL (70-99) 158mg/dL (70-99) 244mg/dL (70-99) White Blood Count 17.0x10^3/uL (4.0-11.0) Red Blood Count 4.41x10^6/uL (4.30-5.70) Hemoglobin 13.9g/dL (13.0-17.5) Hematocrit 43.9% (39.0-53.0) Mean Corpuscular Volume 100fL (79-100) Mean Corpuscular Hemoglobin 32pg (25-35) Mean Corpuscular Hemoglobin Concent 32g/dL (31-37) Red Cell Distribution Width 14.9% (11.5-14.5) Platelet Count 183x10^3/uL (140-400) Sodium Level 138mmol/L (136-145) Potassium Level 4.8mmol/L (3.5-5.1) Chloride Level 101mmol/L (98-107) Carbon Dioxide Level 29mmol/L (21-32) Anion Gap 8 (6-14) Blood Urea Nitrogen 40mg/dL (8-26) Creatinine 1.6mg/dL (0.7-1.3) Estimated GFR (Cockcroft-Gault) 53.8 Glucose Level 228mg/dL (70-99) Calcium Level 8.7mg/dL (8.5-10.1) Test 12/14/16 07:25 Glucose (Fingerstick) 199mg/dL (70-99) Medications Current Medications Albuterol/ Ipratropium (Duoneb) 3 ml 1X ONCE NEB Last administered on 07:30; Start 12/10/16 at 07:00; Stop 12/10/16 at 07:02; Status DC Promethazine HCl/ Codeine (Phenergan With Codeine) 5 ml 1X ONCE PO Last administered on 12/10/16 07:50; Start 12/10/16 at 07:15; Stop 12/10/16 at 07:16 ; Status DC Ondansetron HCl (Zofran) 4 mg PRN Q8HRS PRN IV NAUSEA/VOMITING; Start 12/10/16 at 08:15; Stop 12/11/16 at 08:14; Status DC Acetaminophen (Tylenol) 650 mg PRN Q4HRS PRN PO FEVER; Start 12/10/16 at 08:15 ; Stop 12/11/16 at 08:14; Status DC Albuterol/ Ipratropium (Duoneb) 3 ml RTQID NEB Last administered on 12/11/16 11:33; Start 12/10/16 at 12:00; Stop 12/11/16 at 11:59; Status DC Aspirin (Ecotrin) 81 mg DAILY PO Last administered on 12/13/16 10:43; Start at 12:00 Atorvastatin Calcium (Lipitor) 10 mg QHS PO Last administered on 12/13/16 21: 03; Start 12/10/16 at 21:00 Carvedilol (Coreg) 6.25 mg BIDWMEALS PO Last administered on 12/13/16 17:43; Start 12/10/16 at 17:00 Furosemide (Lasix) 20 mg DAILY PO Last administered on 12/13/16 10:43; Start 12/11/16 at 09:00 Isosorbide Mononitrate (Imdur) 30 mg DAILY PO ; Start 12/11/16 at 09:00; Stop at 14:51; Status DC Nitroglycerin (Nitrostat) 0.4 mg Q1HR PRN SL chest pain; Start 12/10/16 at 10: 15; Stop 12/10/16 at 10:22; Status DC Tizanidine HCl (Zanaflex) 4 mg PRN TID PRN PO muscle spasm Last administered on 12/10/16 12:15; Start 12/10/16 at 10:15 Non-Formulary Medication 1 puff BID IH ; Start 12/10/16 at 21:00; Stop 12/11/16 at 10:48; Status DC Albuterol Sulfate (Ventolin Neb Soln) 2.5 mg PRN Q4HRS PRN NEB SHORTNESS OF BREATH; Start 12/10/16 at 10:15 Olanzapine (Zyprexa) 10 mg QHS PO Last administered on 12/13/16 21:03; Start 12/10/16 at 21:00 Pantoprazole Sodium (Protonix) 40 mg DAILYAC PO Last administered on 12/14/16 06:16; Start 12/11/16 at 07:30 Oxycodone HCl (Roxicodone) 10 mg PRN Q6HRS PRN PO PAIN Last administered on 07:12; Start 12/10/16 at 10:15 Oxycodone HCl (Oxycontin) 20 mg Q12HR PO Last administered on 12/13/16 21:02; Start 12/10/16 at 21:00 Potassium Chloride (Klor-Con) 10 meq DAILYWBKFT PO Last administered on 08:42; Start 12/11/16 at 08:00 Nitroglycerin (Nitrostat) 0.4 mg PRN Q1HR PRN SL chest pain; Start 12/10/16 at 10:22 Iohexol (Omnipaque 300 Mg/ml) 60 ml 1X ONCE IV Last administered on 12/10/16 11:40; Start 12/10/16 at 11:00; Stop 12/10/16 at 11:01; Status DC Info (Do NOT chart on this entry -- for MONITORING) 1 each PRN DAILY PRN MC SEE COMMENTS; Start 12/10/16 at 10:45; Stop 12/12/16 at 10:44; Status DC Promethazine HCl 12.5 mg 12.5 mg PRN Q6HRS PRN PO NAUSEA/VOMITING Last administered on 12/13/16 06:02; Start 12/10/16 at 14:45 Sodium Chloride (Iv Sodium Chloride 0.9% 500ml Bag) 500 ml @ 500 mls/hr 1X ONCE IV Last administered on 12/10/16 18:38; Start 12/10/16 at 19:00; Stop 09/16 at 19:59; Status DC Levofloxacin (Levaquin) 500 mg DAILY PO Last administered on 12/13/16 10:43; Start 12/10/16 at 19:00 Methylprednisolone Sodium Succinate (Solu-Medrol 125mg Vial) 60 mg Q8HRS IV Last administered on 12/13/16 06:02; Start 12/11/16 at 07:15; Stop 12/13/16 at 12:26; Status DC Budesonide 0.5 mg 0.5 mg RTBID NEB Last administered on 12/14/16 07:20; Start 12/11/16 at 11:00 Heparin Sodium/ Sodium Chloride 1,000 ml @ As Directed STK-MED ONCE .ROUTE ; Start 12/11/16 at 13:17; Stop 12/11/16 at 13:18; Status DC Lidocaine HCl 20 ml STK-MED ONCE .ROUTE ; Start 12/11/16 at 13:17; Stop at 13:18; Status DC Iodixanol (Visipaque 320) 100 ml STK-MED ONCE .ROUTE ; Start 12/11/16 at 13:17; Stop 12/11/16 at 13:18; Status DC Nitroglycerin (Nitroglycerin) 200 mcg STK-MED ONCE .ROUTE ; Start 12/11/16 at 13 :40; Stop 12/11/16 at 13:41; Status DC Verapamil HCl (Verapamil) 5 mg STK-MED ONCE .ROUTE ; Start 12/11/16 at 13:40; Stop 12/11/16 at 13:41; Status DC Heparin Sodium (Porcine) 10,000 unit STK-MED ONCE .ROUTE ; Start 12/11/16 at 13: 40; Stop 12/11/16 at 13:41; Status DC Fentanyl Citrate (Fentanyl 2ml Vial) 100 mcg STK-MED ONCE .ROUTE ; Start at 13:40; Stop 12/11/16 at 13:41; Status DC Midazolam HCl (Versed) 2 mg STK-MED ONCE .ROUTE ; Start 12/11/16 at 13:40; Stop 12/11/16 at 13:41; Status DC Nitroglycerin (Nitroglycerin) 200 mcg 1X ONCE IART Last administered on 14:17; Start 12/11/16 at 14:15; Stop 12/11/16 at 14:22; Status DC Verapamil HCl (Verapamil) 2.5 mg 1X ONCE IART Last administered on 12/11/16 14:22; Start 12/11/16 at 14:15; Stop 12/11/16 at 14:22; Status DC Heparin Sodium (Porcine) 2,500 unit 1X ONCE IART Last administered on 14:24; Start 12/11/16 at 14:15; Stop 12/11/16 at 14:22; Status DC Heparin Sodium/ Sodium Chloride 1,000 unit 1X ONCE IART Last administered on 14:17; Start 12/11/16 at 14:15; Stop 12/11/16 at 14:22; Status DC Midazolam HCl (Versed) 2 mg 1X ONCE IV Last administered on 12/11/16 14:23; Start 12/11/16 at 14:15; Stop 12/11/16 at 14:22; Status DC Fentanyl Citrate (Fentanyl 2ml Vial) 100 mcg 1X ONCE IV Last administered on 14:20; Start 12/11/16 at 14:15; Stop 12/11/16 at 14:22; Status DC Iodixanol (Visipaque 320) 100 ml 1X ONCE IART Last administered on 12/11/16 14:17; Start 12/11/16 at 14:15; Stop 12/11/16 at 14:22; Status DC Lidocaine HCl 20 ml 1X ONCE IJ Last administered on 12/11/16 14:17; Start at 14:15; Stop 12/11/16 at 14:22; Status DC Isosorbide Mononitrate 30 mg 30 mg DAILYWLUN PO Last administered on 12/13/16 12:26; Start 12/12/16 at 12:00 Sodium Chloride (Iv Sodium Chloride 0.9% 250ml) 250 ml @ 50 mls/hr 1X ONCE IV Last administered on 12/11/16 15:12; Start 12/11/16 at 14:45; Stop 12/11/16 at 19:44; Status DC Insulin Aspart (Novolog) 0-7 UNITS TIDWMEALS SQ Last administered on 12/13/16 17:47; Start 12/12/16 at 12:00 Dextrose 12.5 gm 12.5 gm PRN Q15MIN PRN IV SEE COMMENTS; Start 12/12/16 at 08: 30 Sincalide/Sodium Chloride (Kinevac/Iv Sodium Chloride 0.9% 50ml) 30 ml @ 120 mls/hr 1X ONCE IV Last administered on 12/13/16 08:15; Start 12/13/16 at 08: 15; Stop 12/13/16 at 08:29; Status DC Methylprednisolone Sodium Succinate (Solu-Medrol 125mg Vial) 60 mg BID IV Last administered on 12/13/16 21:02; Start 12/13/16 at 21:00 Levetiracetam (Keppra) 500 mg BID PO Last administered on 12/13/16 21:03; Start 12/13/16 at 21:00 Iohexol (Omnipaque 300 Mg/ml) 60 ml 1X ONCE IV Last administered on 12/13/16 17:36; Start 12/13/16 at 17:00; Stop 12/13/16 at 17:01; Status DC Info (Do NOT chart on this entry -- for MONITORING) 1 each PRN DAILY PRN MC SEE COMMENTS; Start 12/13/16 at 17:00; Stop 12/15/16 at 16:59 Active Scripts Active Carvedilol 6.25 Mg Tablet 6.25 Mg PO BIDWMEALS Guaifenesin Dm Syrup (Guaifenesin/Dextromethorphan) 5 Ml Syrup 10 Ml PO PRN Q4HRS PRN Proair Hfa Inhaler (Albuterol Sulfate) 8.5 Gm Hfa.aer.ad 2 Puff INH QID PRN Potassium Chloride 10 Meq Capsule.er 20 Meq PO DAILY do not start until 12/11/16 Zyprexa (Olanzapine) 20 Mg Tablet 0.5 Tab PO QHS Reported Oxycodone Hcl 10 Mg Tablet 10 Mg PO Q6HRS PRN Aspir 81 (Aspirin) 81 Mg Tablet.dr 1 Tab PO DAILY Lipitor (Atorvastatin Calcium) 10 Mg Tablet 1 Tab PO QHS Breo Ellipta 200-25 Mcg INH (Fluticasone/Vilanterol) 1 Each Blst.w.dev 1 Puff IH BID Lyrica (Pregabalin) 150 Mg Capsule 1 Cap PO DAILY Prilosec Otc (Omeprazole Magnesium) 20 Mg Tablet.dr 1 Tab PO DAILY Promethazine Hcl 6.25 Mg/5 Ml Syrup 5 Ml PO QID Nitrostat (Nitroglycerin) 0.4 Mg Tab.subl 1 Tab SL UD Tizanidine Hcl 4 Mg Tablet 1 Tab PO TID Flonase Allergy Relief (Fluticasone Propionate) 9.9 Ml [place].susp 2 Sprays NS DAILY Furosemide 20 Mg Tablet 1 Tab PO DAILY Isosorbide Mononitrate Er (Isosorbide Mononitrate) 30 Mg Tab.er.24h 1 Tab PO DAILY Oxycontin (Oxycodone HCl) 20 Mg Tab.er.12h 20 Mg PO BID Vitals/I & O Vital Sign - Last 24 Hours 12/13/16 12/13/16 12/13/16 12/13/16 10:44 10:45 10:51 11:27 Temp 96.0 96.0 Pulse 75 73 Resp 17 B/P 132/92 114/82 Pulse Ox 93 98 O2 Delivery Room Air Nasal Cannula O2 Flow Rate 1.0 12/13/16 12/13/16 12/13/16 12/13/16 12:26 15:18 17:43 19:00 Temp 96.4 97.4 96.4 97.4 Pulse 73 72 72 73 Resp 18 18 B/P 114/82 104/75 104/75 100/64 Pulse Ox 97 93 O2 Delivery Room Air Room Air 12/13/16 12/13/16 12/13/16 12/13/16 19:45 20:10 21:02 23:31 Temp 97.4 97.4 Pulse 72 Resp 18 18 B/P 115/71 Pulse Ox 93 96 O2 Delivery Room Air Room Air Room Air Room Air 12/14/16 12/14/16 12/14/16 01:03 03:11 07:20 Temp 97.4 97.4 Pulse 64 Resp 17 18 B/P 109/70 Pulse Ox 96 93 92 O2 Delivery Room Air Room Air Room Air O2 Flow Rate 1.0 Intake and Output 12/13/16 12/13/16 12/14/16 15:00 23:00 07:00 Intake Total 1260 ml Output Total 450 ml 450 ml 300 ml Balance -450 ml 810 ml -[address]: 1. No acute intracranial abnormality is detected. 2. Small amount of fluid in the sphenoid sinus likely on an inflammatory basis. RASHMI SORTO MD Dec 14, 2016 09:50
--- NOTE | 2016-12-14 09:56 | PDOC ---
SURGICAL PROGRESS NOTE Subjective just back from EGD some mild RUQ pain, no n/v Vital Signs Vital Signs Date Time Temp Pulse Resp B/P Pulse Ox O2 Delivery O2 Flow Rate FiO2 12/14/16 07:20 92 Room Air 12/14/16 03:11 97.4 64 18 109/70 97.4 12/14/16 01:03 1.0 I&O Intake and Output 12/14/16 07:00 Intake Total 1260 ml Output Total 1200 ml Balance 60 ml Intake Oral 1260 ml Output Urine Total 1200 ml # Voids 1 General: Alert, Oriented X3, Cooperative, No acute distress Abdomen: Soft, No tenderness Labs Laboratory Tests Test 12/12/16 11:36 12/12/16 16:36 12/12/16 21:03 12/13/16 07:21 Glucose (Fingerstick) 228mg/dL (70-99) 182mg/dL (70-99) 208mg/dL (70-99) 197mg/dL (70-99) Test 12/13/16 11:32 12/13/16 16:38 12/13/16 20:54 12/14/16 03:00 Glucose (Fingerstick) 205mg/dL (70-99) 158mg/dL (70-99) 244mg/dL (70-99) White Blood Count 17.0x10^3/uL (4.0-11.0) Red Blood Count 4.41x10^6/uL (4.30-5.70) Hemoglobin 13.9g/dL (13.0-17.5) Hematocrit 43.9% (39.0-53.0) Mean Corpuscular Volume 100fL (79-100) Mean Corpuscular Hemoglobin 32pg (25-35) Mean Corpuscular Hemoglobin Concent 32g/dL (31-37) Red Cell Distribution Width 14.9% (11.5-14.5) Platelet Count 183x10^3/uL (140-400) Sodium Level 138mmol/L (136-145) Potassium Level 4.8mmol/L (3.5-5.1) Chloride Level 101mmol/L (98-107) Carbon Dioxide Level 29mmol/L (21-32) Anion Gap 8 (6-14) Blood Urea Nitrogen 40mg/dL (8-26) Creatinine 1.6mg/dL (0.7-1.3) Estimated GFR (Cockcroft-Gault) 53.8 Glucose Level 228mg/dL (70-99) Calcium Level 8.7mg/dL (8.5-10.1) Test 12/14/16 07:25 Glucose (Fingerstick) 199mg/dL (70-99) Laboratory Tests Test 12/13/16 11:32 12/13/16 16:38 12/13/16 20:54 12/14/16 03:00 Glucose (Fingerstick) 205mg/dL (70-99) 158mg/dL (70-99) 244mg/dL (70-99) White Blood Count 17.0x10^3/uL (4.0-11.0) Red Blood Count 4.41x10^6/uL (4.30-5.70) Hemoglobin 13.9g/dL (13.0-17.5) Hematocrit 43.9% (39.0-53.0) Mean Corpuscular Volume 100fL (79-100) Mean Corpuscular Hemoglobin 32pg (25-35) Mean Corpuscular Hemoglobin Concent 32g/dL (31-37) Red Cell Distribution Width 14.9% (11.5-14.5) Platelet Count 183x10^3/uL (140-400) Sodium Level 138mmol/L (136-145) Potassium Level 4.8mmol/L (3.5-5.1) Chloride Level 101mmol/L (98-107) Carbon Dioxide Level 29mmol/L (21-32) Anion Gap 8 (6-14) Blood Urea Nitrogen 40mg/dL (8-26) Creatinine 1.6mg/dL (0.7-1.3) Estimated GFR (Cockcroft-Gault) 53.8 Glucose Level 228mg/dL (70-99) Calcium Level 8.7mg/dL (8.5-10.1) Test 12/14/16 07:25 Glucose (Fingerstick) 199mg/dL (70-99) Problem List Problems Medical Problems: (1) Chest pain Status: Acute Assessment/Plan biliary dyskinesia wbc 17--on steroids however low fat diet no surgical plans Problems: CHRISTOPHER HOOD ORDER ENTRY Dec 14, 2016 09:56
--- NOTE | 2016-12-14 10:24 | PDOC ---
PROGRESS NOTES Subjective Subjective breathing easy, no chest pain. complains of foot pain. just back from shower. Objective Objective tele - sr Vital Signs Date Time Temp Pulse Resp B/P Pulse Ox O2 Delivery O2 Flow Rate FiO2 12/14/16 07:20 92 Room Air 12/14/16 03:11 97.4 64 18 109/70 97.4 12/14/16 01:03 1.0 Intake and Output 12/14/16 07:00 Intake Total 1260 ml Output Total 1200 ml Balance 60 ml Intake Oral 1260 ml Output Urine Total 1200 ml # Voids 1 Physical Exam Abdomen: Normal bowel sounds, Soft, No tenderness Heart: Regular rate, Normal S1, Normal S2 Extremities: Normal pulses General: Alert, Oriented X3, Cooperative, No acute distress Lungs: Other (decreased bases) Neuro: Normal speech, Strength at 5/5 X4 ext, Reflexes 2+ Psych/Mental Status: Mood NL Assessment Assessment Problems Medical Problems: (1) Chest pain Status: Acute 1 . Chronic systolic heart failure diuretics, coreg, discontinue imdur and add ACEI if pressures will support. . 2. Non ischemic cardiomyopathy s/p AICD LVEF 15%%, Cardiac cath with normal coronaries device check today to reestablish home monitoring. Stable thresholds, sensing and impedance. 1 episodes of HVR in VF zone, resolved with ATP. Adequate battery voltage and last charge time 9.3 seconds. 6. h/o AFIB maintaining SR ASA for stroke prophylaxis 7. Hyperlipidemia LDL 102 continue statin 8. Hypertension controlled at low end of normal. continue to monitor. ACEI if tolerated. 9. CAD No significant disease by cath. Continue medical management. 10. syncope - non cardiac, neuro following. Comment Review of Relevant I have reviewed the following items georgette (where applicable) has been applied. Labs Laboratory Tests Test 12/12/16 11:36 12/12/16 16:36 12/12/16 21:03 12/13/16 07:21 Glucose (Fingerstick) 228mg/dL (70-99) 182mg/dL (70-99) 208mg/dL (70-99) 197mg/dL (70-99) Test 12/13/16 11:32 12/13/16 16:38 12/13/16 20:54 12/14/16 03:00 Glucose (Fingerstick) 205mg/dL (70-99) 158mg/dL (70-99) 244mg/dL (70-99) White Blood Count 17.0x10^3/uL (4.0-11.0) Red Blood Count 4.41x10^6/uL (4.30-5.70) Hemoglobin 13.9g/dL (13.0-17.5) Hematocrit 43.9% (39.0-53.0) Mean Corpuscular Volume 100fL (79-100) Mean Corpuscular Hemoglobin 32pg (25-35) Mean Corpuscular Hemoglobin Concent 32g/dL (31-37) Red Cell Distribution Width 14.9% (11.5-14.5) Platelet Count 183x10^3/uL (140-400) Sodium Level 138mmol/L (136-145) Potassium Level 4.8mmol/L (3.5-5.1) Chloride Level 101mmol/L (98-107) Carbon Dioxide Level 29mmol/L (21-32) Anion Gap 8 (6-14) Blood Urea Nitrogen 40mg/dL (8-26) Creatinine 1.6mg/dL (0.7-1.3) Estimated GFR (Cockcroft-Gault) 53.8 Glucose Level 228mg/dL (70-99) Calcium Level 8.7mg/dL (8.5-10.1) Test 12/14/16 07:25 Glucose (Fingerstick) 199mg/dL (70-99) Laboratory Tests Test 12/13/16 11:32 12/13/16 16:38 12/13/16 20:54 12/14/16 03:00 Glucose (Fingerstick) 205mg/dL (70-99) 158mg/dL (70-99) 244mg/dL (70-99) White Blood Count 17.0x10^3/uL (4.0-11.0) Red Blood Count 4.41x10^6/uL (4.30-5.70) Hemoglobin 13.9g/dL (13.0-17.5) Hematocrit 43.9% (39.0-53.0) Mean Corpuscular Volume 100fL (79-100) Mean Corpuscular Hemoglobin 32pg (25-35) Mean Corpuscular Hemoglobin Concent 32g/dL (31-37) Red Cell Distribution Width 14.9% (11.5-14.5) Platelet Count 183x10^3/uL (140-400) Sodium Level 138mmol/L (136-145) Potassium Level 4.8mmol/L (3.5-5.1) Chloride Level 101mmol/L (98-107) Carbon Dioxide Level 29mmol/L (21-32) Anion Gap 8 (6-14) Blood Urea Nitrogen 40mg/dL (8-26) Creatinine 1.6mg/dL (0.7-1.3) Estimated GFR (Cockcroft-Gault) 53.8 Glucose Level 228mg/dL (70-99) Calcium Level 8.7mg/dL (8.5-10.1) Test 12/14/16 07:25 Glucose (Fingerstick) 199mg/dL (70-99) Medications Current Medications Albuterol/ Ipratropium (Duoneb) 3 ml 1X ONCE NEB Last administered on 07:30; Start 12/10/16 at 07:00; Stop 12/10/16 at 07:02; Status DC Promethazine HCl/ Codeine (Phenergan With Codeine) 5 ml 1X ONCE PO Last administered on 12/10/16 07:50; Start 12/10/16 at 07:15; Stop 12/10/16 at 07:16 ; Status DC Ondansetron HCl (Zofran) 4 mg PRN Q8HRS PRN IV NAUSEA/VOMITING; Start 12/10/16 at 08:15; Stop 12/11/16 at 08:14; Status DC Acetaminophen (Tylenol) 650 mg PRN Q4HRS PRN PO FEVER; Start 12/10/16 at 08:15 ; Stop 12/11/16 at 08:14; Status DC Albuterol/ Ipratropium (Duoneb) 3 ml RTQID NEB Last administered on 12/11/16 11:33; Start 12/10/16 at 12:00; Stop 12/11/16 at 11:59; Status DC Aspirin (Ecotrin) 81 mg DAILY PO Last administered on 12/13/16 10:43; Start at 12:00 Atorvastatin Calcium (Lipitor) 10 mg QHS PO Last administered on 12/13/16 21: 03; Start 12/10/16 at 21:00 Carvedilol (Coreg) 6.25 mg BIDWMEALS PO Last administered on 12/13/16 17:43; Start 12/10/16 at 17:00 Furosemide (Lasix) 20 mg DAILY PO Last administered on 12/13/16 10:43; Start 12/11/16 at 09:00 Isosorbide Mononitrate (Imdur) 30 mg DAILY PO ; Start 12/11/16 at 09:00; Stop at 14:51; Status DC Nitroglycerin (Nitrostat) 0.4 mg Q1HR PRN SL chest pain; Start 12/10/16 at 10: 15; Stop 12/10/16 at 10:22; Status DC Tizanidine HCl (Zanaflex) 4 mg PRN TID PRN PO muscle spasm Last administered on 12/10/16 12:15; Start 12/10/16 at 10:15 Non-Formulary Medication 1 puff BID IH ; Start 12/10/16 at 21:00; Stop 12/11/16 at 10:48; Status DC Albuterol Sulfate (Ventolin Neb Soln) 2.5 mg PRN Q4HRS PRN NEB SHORTNESS OF BREATH; Start 12/10/16 at 10:15 Olanzapine (Zyprexa) 10 mg QHS PO Last administered on 12/13/16 21:03; Start 12/10/16 at 21:00 Pantoprazole Sodium (Protonix) 40 mg DAILYAC PO Last administered on 12/14/16 06:16; Start 12/11/16 at 07:30 Oxycodone HCl (Roxicodone) 10 mg PRN Q6HRS PRN PO PAIN Last administered on 07:12; Start 12/10/16 at 10:15 Oxycodone HCl (Oxycontin) 20 mg Q12HR PO Last administered on 12/13/16 21:02; Start 12/10/16 at 21:00 Potassium Chloride (Klor-Con) 10 meq DAILYWBKFT PO Last administered on 08:42; Start 12/11/16 at 08:00 Nitroglycerin (Nitrostat) 0.4 mg PRN Q1HR PRN SL chest pain; Start 12/10/16 at 10:22 Iohexol (Omnipaque 300 Mg/ml) 60 ml 1X ONCE IV Last administered on 12/10/16 11:40; Start 12/10/16 at 11:00; Stop 12/10/16 at 11:01; Status DC Info (Do NOT chart on this entry -- for MONITORING) 1 each PRN DAILY PRN MC SEE COMMENTS; Start 12/10/16 at 10:45; Stop 12/12/16 at 10:44; Status DC Promethazine HCl 12.5 mg 12.5 mg PRN Q6HRS PRN PO NAUSEA/VOMITING Last administered on 12/13/16 06:02; Start 12/10/16 at 14:45 Sodium Chloride (Iv Sodium Chloride 0.9% 500ml Bag) 500 ml @ 500 mls/hr 1X ONCE IV Last administered on 12/10/16 18:38; Start 12/10/16 at 19:00; Stop 09/16 at 19:59; Status DC Levofloxacin (Levaquin) 500 mg DAILY PO Last administered on 12/13/16 10:43; Start 12/10/16 at 19:00 Methylprednisolone Sodium Succinate (Solu-Medrol 125mg Vial) 60 mg Q8HRS IV Last administered on 12/13/16 06:02; Start 12/11/16 at 07:15; Stop 12/13/16 at 12:26; Status DC Budesonide 0.5 mg 0.5 mg RTBID NEB Last administered on 12/14/16 07:20; Start 12/11/16 at 11:00 Heparin Sodium/ Sodium Chloride 1,000 ml @ As Directed STK-MED ONCE .ROUTE ; Start 12/11/16 at 13:17; Stop 12/11/16 at 13:18; Status DC Lidocaine HCl 20 ml STK-MED ONCE .ROUTE ; Start 12/11/16 at 13:17; Stop at 13:18; Status DC Iodixanol (Visipaque 320) 100 ml STK-MED ONCE .ROUTE ; Start 12/11/16 at 13:17; Stop 12/11/16 at 13:18; Status DC Nitroglycerin (Nitroglycerin) 200 mcg STK-MED ONCE .ROUTE ; Start 12/11/16 at 13 :40; Stop 12/11/16 at 13:41; Status DC Verapamil HCl (Verapamil) 5 mg STK-MED ONCE .ROUTE ; Start 12/11/16 at 13:40; Stop 12/11/16 at 13:41; Status DC Heparin Sodium (Porcine) 10,000 unit STK-MED ONCE .ROUTE ; Start 12/11/16 at 13: 40; Stop 12/11/16 at 13:41; Status DC Fentanyl Citrate (Fentanyl 2ml Vial) 100 mcg STK-MED ONCE .ROUTE ; Start at 13:40; Stop 12/11/16 at 13:41; Status DC Midazolam HCl (Versed) 2 mg STK-MED ONCE .ROUTE ; Start 12/11/16 at 13:40; Stop 12/11/16 at 13:41; Status DC Nitroglycerin (Nitroglycerin) 200 mcg 1X ONCE IART Last administered on 14:17; Start 12/11/16 at 14:15; Stop 12/11/16 at 14:22; Status DC Verapamil HCl (Verapamil) 2.5 mg 1X ONCE IART Last administered on 12/11/16 14:22; Start 12/11/16 at 14:15; Stop 12/11/16 at 14:22; Status DC Heparin Sodium (Porcine) 2,500 unit 1X ONCE IART Last administered on 14:24; Start 12/11/16 at 14:15; Stop 12/11/16 at 14:22; Status DC Heparin Sodium/ Sodium Chloride 1,000 unit 1X ONCE IART Last administered on 14:17; Start 12/11/16 at 14:15; Stop 12/11/16 at 14:22; Status DC Midazolam HCl (Versed) 2 mg 1X ONCE IV Last administered on 12/11/16 14:23; Start 12/11/16 at 14:15; Stop 12/11/16 at 14:22; Status DC Fentanyl Citrate (Fentanyl 2ml Vial) 100 mcg 1X ONCE IV Last administered on 14:20; Start 12/11/16 at 14:15; Stop 12/11/16 at 14:22; Status DC Iodixanol (Visipaque 320) 100 ml 1X ONCE IART Last administered on 12/11/16 14:17; Start 12/11/16 at 14:15; Stop 12/11/16 at 14:22; Status DC Lidocaine HCl 20 ml 1X ONCE IJ Last administered on 12/11/16 14:17; Start at 14:15; Stop 12/11/16 at 14:22; Status DC Isosorbide Mononitrate 30 mg 30 mg DAILYWLUN PO Last administered on 12/13/16 12:26; Start 12/12/16 at 12:00 Sodium Chloride (Iv Sodium Chloride 0.9% 250ml) 250 ml @ 50 mls/hr 1X ONCE IV Last administered on 12/11/16 15:12; Start 12/11/16 at 14:45; Stop 12/11/16 at 19:44; Status DC Insulin Aspart (Novolog) 0-7 UNITS TIDWMEALS SQ Last administered on 12/13/16 17:47; Start 12/12/16 at 12:00 Dextrose 12.5 gm 12.5 gm PRN Q15MIN PRN IV SEE COMMENTS; Start 12/12/16 at 08: 30 Sincalide/Sodium Chloride (Kinevac/Iv Sodium Chloride 0.9% 50ml) 30 ml @ 120 mls/hr 1X ONCE IV Last administered on 12/13/16 08:15; Start 12/13/16 at 08: 15; Stop 12/13/16 at 08:29; Status DC Methylprednisolone Sodium Succinate (Solu-Medrol 125mg Vial) 60 mg BID IV Last administered on 12/13/16 21:02; Start 12/13/16 at 21:00 Levetiracetam (Keppra) 500 mg BID PO Last administered on 12/13/16 21:03; Start 12/13/16 at 21:00 Iohexol (Omnipaque 300 Mg/ml) 60 ml 1X ONCE IV Last administered on 12/13/16 17:36; Start 12/13/16 at 17:00; Stop 12/13/16 at 17:01; Status DC Info (Do NOT chart on this entry -- for MONITORING) 1 each PRN DAILY PRN MC SEE COMMENTS; Start 12/13/16 at 17:00; Stop 12/15/16 at 16:59 Active Scripts Active Carvedilol 6.25 Mg Tablet 6.25 Mg PO BIDWMEALS Guaifenesin Dm Syrup (Guaifenesin/Dextromethorphan) 5 Ml Syrup 10 Ml PO PRN Q4HRS PRN Proair Hfa Inhaler (Albuterol Sulfate) 8.5 Gm Hfa.aer.ad 2 Puff INH QID PRN Potassium Chloride 10 Meq Capsule.er 20 Meq PO DAILY do not start until 12/11/16 Zyprexa (Olanzapine) 20 Mg Tablet 0.5 Tab PO QHS Reported Oxycodone Hcl 10 Mg Tablet 10 Mg PO Q6HRS PRN Aspir 81 (Aspirin) 81 Mg Tablet.dr 1 Tab PO DAILY Lipitor (Atorvastatin Calcium) 10 Mg Tablet 1 Tab PO QHS Breo Ellipta 200-25 Mcg INH (Fluticasone/Vilanterol) 1 Each Blst.w.dev 1 Puff IH BID Lyrica (Pregabalin) 150 Mg Capsule 1 Cap PO DAILY Prilosec Otc (Omeprazole Magnesium) 20 Mg Tablet.dr 1 Tab PO DAILY Promethazine Hcl 6.25 Mg/5 Ml Syrup 5 Ml PO QID Nitrostat (Nitroglycerin) 0.4 Mg Tab.subl 1 Tab SL UD Tizanidine Hcl 4 Mg Tablet 1 Tab PO TID Flonase Allergy Relief (Fluticasone Propionate) 9.9 Ml [place].susp 2 Sprays NS DAILY Furosemide 20 Mg Tablet 1 Tab PO DAILY Isosorbide Mononitrate Er (Isosorbide Mononitrate) 30 Mg Tab.er.24h 1 Tab PO DAILY Oxycontin (Oxycodone HCl) 20 Mg Tab.er.12h 20 Mg PO BID Vitals/I & O Vital Sign - Last 24 Hours 12/13/16 12/13/16 12/13/16 12/13/16 10:44 10:45 10:51 11:27 Temp 96.0 96.0 Pulse 75 73 Resp 18 17 B/P 132/92 114/82 Pulse Ox 93 98 O2 Delivery Room Air Nasal Cannula O2 Flow Rate 1.0 12/13/16 12/13/16 12/13/16 12/13/16 12:26 15:18 17:43 19:00 Temp 96.4 97.4 96.4 97.4 Pulse 73 72 72 73 Resp 18 18 B/P 114/82 104/75 104/75 100/64 Pulse Ox 97 93 O2 Delivery Room Air Room Air 12/13/16 12/13/16 12/13/16 12/13/16 19:45 20:10 21:02 23:31 Temp 97.4 97.4 Pulse 72 Resp 18 18 B/P 115/71 Pulse Ox 93 96 O2 Delivery Room Air Room Air Room Air Room Air 12/14/16 12/14/16 12/14/16 01:03 03:11 07:20 Temp 97.4 97.4 Pulse 64 Resp 18 B/P 109/70 Pulse Ox 96 93 92 O2 Delivery Room Air Room Air Room Air O2 Flow Rate 1.0 Intake and Output 12/13/16 12/13/16 12/14/16 15:00 23:00 07:00 Intake Total 1260 ml Output Total 450 ml 450 ml 300 ml Balance -450 ml 810 ml -300 ml SEBASTIAN SHELDON APRN Dec 14, 2016 10:24
[2016-12-14] MEDS: LEVETIRACETAM 500 MG TABLET PO SCH (10:49)
[2016-12-14] MEDS: LEVOFLOXACIN 500 MG TABLET PO SCH (10:49)
[2016-12-14] MEDS: ASPIRIN ENTERIC COATED 81 MG TABLET.DR. PO SCH (10:49)
[2016-12-14] MEDS: CARVEDILOL 6.25 MG TABLET PO SCH (10:50)
[2016-12-14] MEDS: FUROSEMIDE 20 MG TABLET PO SCH (10:50)
[2016-12-14] MEDS: POTASSIUM CHLORIDE 10 MEQ TABLET.ER. PO SCH (10:50)
[2016-12-14] MEDS: methylPREDNISolone SOD SUCC PF 125 MG/2 ML VIAL. IV SCH (10:51)
[2016-12-14 11:00] VITALS: BP 122/83
[2016-12-14] MEDS: ISOSORBIDE MONONITRATE ER 30 MG TAB.ER.24H PO SCH (12:00)
--- NOTE | 2016-12-14 12:14 | PDOC ---
PROGRESS NOTES Subjective Subjective Patient reports breathing is better, feels ready to go home today. Objective Objective Vital Signs Date Time Temp Pulse Resp B/P Pulse Ox O2 Delivery O2 Flow Rate FiO2 12/14/16 10:50 72 124/81 12/14/16 07:20 92 Room Air 12/14/16 03:11 97.4 18 97.4 12/14/16 01:03 1.0 Intake and Output 12/14/16 07:00 Intake Total 1260 ml Output Total 1200 ml Balance 60 ml Intake Oral 1260 ml Output Urine Total 1200 ml # Voids 1 Physical Exam Abdomen: Normal bowel sounds, Soft, No tenderness Heart: Regular rate Extremities: No edema General: Alert, Oriented X3, No acute distress Lungs: Other (BS decreased throughout but otherwise CTA) Assessment Assessment Problems Medical Problems: (1) Cardiomyopathy Status: Acute (2) Chest pain Status: Acute Plan Plan of Care 1. CHF with severe cardiomyopathy - stable, home today on present meds. No further CP. 2. AE COPD - much improved, no longer hypoxic, even with walking. Nebulizer for home use ordered per 's request. Home on po Prednisone taper. 3. syncope - possible seizure disorder. Dr Prieto has started patient on Keppra. Had EEG this AM, results pending. Follow up with Neurology as outpatient. 4. cholelithiasis with biliary dyskinesia - stable, patient aware of recommendation for low fat diet. 5. CKD III - stable. 6. chronic pain - stable, home on his usual po meds. 7. bipolar mood disorder - appears stable, continue his usual meds. Comment Review of Relevant I have reviewed the following items georgette (where applicable) has been applied. Labs Laboratory Tests Test 12/12/16 16:36 12/12/16 21:03 12/13/16 07:21 12/13/16 11:32 Glucose (Fingerstick) 182mg/dL (70-99) 208mg/dL (70-99) 197mg/dL (70-99) 205mg/dL (70-99) Test 12/13/16 16:38 12/13/16 20:54 12/14/16 03:00 12/14/16 07:25 Glucose (Fingerstick) 158mg/dL (70-99) 244mg/dL (70-99) 199mg/dL (70-99) White Blood Count 17.0x10^3/uL (4.0-11.0) Red Blood Count 4.41x10^6/uL (4.30-5.70) Hemoglobin 13.9g/dL (13.0-17.5) Hematocrit 43.9% (39.0-53.0) Mean Corpuscular Volume 100fL (79-100) Mean Corpuscular Hemoglobin 32pg (25-35) Mean Corpuscular Hemoglobin Concent 32g/dL (31-37) Red Cell Distribution Width 14.9% (11.5-14.5) Platelet Count 183x10^3/uL (140-400) Sodium Level 138mmol/L (136-145) Potassium Level 4.8mmol/L (3.5-5.1) Chloride Level 101mmol/L (98-107) Carbon Dioxide Level 29mmol/L (21-32) Anion Gap 8 (6-14) Blood Urea Nitrogen 40mg/dL (8-26) Creatinine 1.6mg/dL (0.7-1.3) Estimated GFR (Cockcroft-Gault) 53.8 Glucose Level 228mg/dL (70-99) Calcium Level 8.7mg/dL (8.5-10.1) Laboratory Tests Test 12/13/16 16:38 12/13/16 20:54 12/14/16 03:00 12/14/16 07:25 Glucose (Fingerstick) 158mg/dL (70-99) 244mg/dL (70-99) 199mg/dL (70-99) White Blood Count 17.0x10^3/uL (4.0-11.0) Red Blood Count 4.41x10^6/uL (4.30-5.70) Hemoglobin 13.9g/dL (13.0-17.5) Hematocrit 43.9% (39.0-53.0) Mean Corpuscular Volume 100fL (79-100) Mean Corpuscular Hemoglobin 32pg (25-35) Mean Corpuscular Hemoglobin Concent 32g/dL (31-37) Red Cell Distribution Width 14.9% (11.5-14.5) Platelet Count 183x10^3/uL (140-400) Sodium Level 138mmol/L (136-145) Potassium Level 4.8mmol/L (3.5-5.1) Chloride Level 101mmol/L (98-107) Carbon Dioxide Level 29mmol/L (21-32) Anion Gap 8 (6-14) Blood Urea Nitrogen 40mg/dL (8-26) Creatinine 1.6mg/dL (0.7-1.3) Estimated GFR (Cockcroft-Gault) 53.8 Glucose Level 228mg/dL (70-99) Calcium Level 8.7mg/dL (8.5-10.1) Medications Current Medications Albuterol/ Ipratropium (Duoneb) 3 ml 1X ONCE NEB Last administered on 07:30; Start 12/10/16 at 07:00; Stop 12/10/16 at 07:02; Status DC Promethazine HCl/ Codeine (Phenergan With Codeine) 5 ml 1X ONCE PO Last administered on 12/10/16 07:50; Start 12/10/16 at 07:15; Stop 12/10/16 at 07:16 ; Status DC Ondansetron HCl (Zofran) 4 mg PRN Q8HRS PRN IV NAUSEA/VOMITING; Start 12/10/16 at 08:15; Stop 12/11/16 at 08:14; Status DC Acetaminophen (Tylenol) 650 mg PRN Q4HRS PRN PO FEVER; Start 12/10/16 at 08:15 ; Stop 12/11/16 at 08:14; Status DC Albuterol/ Ipratropium (Duoneb) 3 ml RTQID NEB Last administered on 12/11/16 11:33; Start 12/10/16 at 12:00; Stop 12/11/16 at 11:59; Status DC Aspirin (Ecotrin) 81 mg DAILY PO Last administered on 12/14/16 10:49; Start at 12:00 Atorvastatin Calcium (Lipitor) 10 mg QHS PO Last administered on 12/13/16 21: 03; Start 12/10/16 at 21:00 Carvedilol (Coreg) 6.25 mg BIDWMEALS PO Last administered on 12/14/16 10:50; Start 12/10/16 at 17:00 Furosemide (Lasix) 20 mg DAILY PO Last administered on 12/14/16 10:50; Start 12/11/16 at 09:00 Isosorbide Mononitrate (Imdur) 30 mg DAILY PO ; Start 12/11/16 at 09:00; Stop at 14:51; Status DC Nitroglycerin (Nitrostat) 0.4 mg Q1HR PRN SL chest pain; Start 12/10/16 at 10: 15; Stop 12/10/16 at 10:22; Status DC Tizanidine HCl (Zanaflex) 4 mg PRN TID PRN PO muscle spasm Last administered on 12/10/16 12:15; Start 12/10/16 at 10:15 Non-Formulary Medication 1 puff BID IH ; Start 12/10/16 at 21:00; Stop 12/11/16 at 10:48; Status DC Albuterol Sulfate (Ventolin Neb Soln) 2.5 mg PRN Q4HRS PRN NEB SHORTNESS OF BREATH; Start 12/10/16 at 10:15 Olanzapine (Zyprexa) 10 mg QHS PO Last administered on 12/13/16 21:03; Start 12/10/16 at 21:00 Pantoprazole Sodium (Protonix) 40 mg DAILYAC PO Last administered on 12/14/16 06:16; Start 12/11/16 at 07:30 Oxycodone HCl (Roxicodone) 10 mg PRN Q6HRS PRN PO PAIN Last administered on 07:12; Start 12/10/16 at 10:15 Oxycodone HCl (Oxycontin) 20 mg Q12HR PO Last administered on 12/13/16 21:02; Start 12/10/16 at 21:00 Potassium Chloride (Klor-Con) 10 meq DAILYWBKFT PO Last administered on 10:50; Start 12/11/16 at 08:00 Nitroglycerin (Nitrostat) 0.4 mg PRN Q1HR PRN SL chest pain; Start 12/10/16 at 10:22 Iohexol (Omnipaque 300 Mg/ml) 60 ml 1X ONCE IV Last administered on 12/10/16 11:40; Start 12/10/16 at 11:00; Stop 12/10/16 at 11:01; Status DC Info (Do NOT chart on this entry -- for MONITORING) 1 each PRN DAILY PRN MC SEE COMMENTS; Start 12/10/16 at 10:45; Stop 12/12/16 at 10:44; Status DC Promethazine HCl 12.5 mg 12.5 mg PRN Q6HRS PRN PO NAUSEA/VOMITING Last administered on 12/13/16 06:02; Start 12/10/16 at 14:45 Sodium Chloride (Iv Sodium Chloride 0.9% 500ml Bag) 500 ml @ 500 mls/hr 1X ONCE IV Last administered on 12/10/16 18:38; Start 12/10/16 at 19:00; Stop 09/16 at 19:59; Status DC Levofloxacin (Levaquin) 500 mg DAILY PO Last administered on 12/14/16 10:49; Start 12/10/16 at 19:00 Methylprednisolone Sodium Succinate (Solu-Medrol 125mg Vial) 60 mg Q8HRS IV Last administered on 12/13/16 06:02; Start 12/11/16 at 07:15; Stop 12/13/16 at 12:26; Status DC Budesonide 0.5 mg 0.5 mg RTBID NEB Last administered on 12/14/16 07:20; Start 12/11/16 at 11:00 Heparin Sodium/ Sodium Chloride 1,000 ml @ As Directed STK-MED ONCE .ROUTE ; Start 12/11/16 at 13:17; Stop 12/11/16 at 13:18; Status DC Lidocaine HCl 20 ml STK-MED ONCE .ROUTE ; Start 12/11/16 at 13:17; Stop at 13:18; Status DC Iodixanol (Visipaque 320) 100 ml STK-MED ONCE .ROUTE ; Start 12/11/16 at 13:17; Stop 12/11/16 at 13:18; Status DC Nitroglycerin (Nitroglycerin) 200 mcg STK-MED ONCE .ROUTE ; Start 12/11/16 at 13 :40; Stop 12/11/16 at 13:41; Status DC Verapamil HCl (Verapamil) 5 mg STK-MED ONCE .ROUTE ; Start 12/11/16 at 13:40; Stop 12/11/16 at 13:41; Status DC Heparin Sodium (Porcine) 10,000 unit STK-MED ONCE .ROUTE ; Start 12/11/16 at 13: 40; Stop 12/11/16 at 13:41; Status DC Fentanyl Citrate (Fentanyl 2ml Vial) 100 mcg STK-MED ONCE .ROUTE ; Start at 13:40; Stop 12/11/16 at 13:41; Status DC Midazolam HCl (Versed) 2 mg STK-MED ONCE .ROUTE ; Start 12/11/16 at 13:40; Stop 12/11/16 at 13:41; Status DC Nitroglycerin (Nitroglycerin) 200 mcg 1X ONCE IART Last administered on 14:17; Start 12/11/16 at 14:15; Stop 12/11/16 at 14:22; Status DC Verapamil HCl (Verapamil) 2.5 mg 1X ONCE IART Last administered on 12/11/16 14:22; Start 12/11/16 at 14:15; Stop 12/11/16 at 14:22; Status DC Heparin Sodium (Porcine) 2,500 unit 1X ONCE IART Last administered on 14:24; Start 12/11/16 at 14:15; Stop 12/11/16 at 14:22; Status DC Heparin Sodium/ Sodium Chloride 1,000 unit 1X ONCE IART Last administered on 14:17; Start 12/11/16 at 14:15; Stop 12/11/16 at 14:22; Status DC Midazolam HCl (Versed) 2 mg 1X ONCE IV Last administered on 12/11/16 14:23; Start 12/11/16 at 14:15; Stop 12/11/16 at 14:22; Status DC Fentanyl Citrate (Fentanyl 2ml Vial) 100 mcg 1X ONCE IV Last administered on 14:20; Start 12/11/16 at 14:15; Stop 12/11/16 at 14:22; Status DC Iodixanol (Visipaque 320) 100 ml 1X ONCE IART Last administered on 12/11/16 14:17; Start 12/11/16 at 14:15; Stop 12/11/16 at 14:22; Status DC Lidocaine HCl 20 ml 1X ONCE IJ Last administered on 12/11/16 14:17; Start at 14:15; Stop 12/11/16 at 14:22; Status DC Isosorbide Mononitrate 30 mg 30 mg DAILYWLUN PO Last administered on 12/13/16 12:26; Start 12/12/16 at 12:00 Sodium Chloride (Iv Sodium Chloride 0.9% 250ml) 250 ml @ 50 mls/hr 1X ONCE IV Last administered on 12/11/16 15:12; Start 12/11/16 at 14:45; Stop 12/11/16 at 19:44; Status DC Insulin Aspart (Novolog) 0-7 UNITS TIDWMEALS SQ Last administered on 12/14/16 08:00; Start 12/12/16 at 12:00 Dextrose 12.5 gm 12.5 gm PRN Q15MIN PRN IV SEE COMMENTS; Start 12/12/16 at 08: 30 Sincalide/Sodium Chloride (Kinevac/Iv Sodium Chloride 0.9% 50ml) 30 ml @ 120 mls/hr 1X ONCE IV Last administered on 12/13/16 08:15; Start 12/13/16 at 08: 15; Stop 12/13/16 at 08:29; Status DC Methylprednisolone Sodium Succinate (Solu-Medrol 125mg Vial) 60 mg BID IV Last administered on 12/14/16 10:51; Start 12/13/16 at 21:00 Levetiracetam (Keppra) 500 mg BID PO Last administered on 12/14/16 10:49; Start 12/13/16 at 21:00 Iohexol (Omnipaque 300 Mg/ml) 60 ml 1X ONCE IV Last administered on 12/13/16 17:36; Start 12/13/16 at 17:00; Stop 12/13/16 at 17:01; Status DC Info (Do NOT chart on this entry -- for MONITORING) 1 each PRN DAILY PRN MC SEE COMMENTS; Start 12/13/16 at 17:00; Stop 12/15/16 at 16:59 Active Scripts Active Carvedilol 6.25 Mg Tablet 6.25 Mg PO BIDWMEALS Guaifenesin Dm Syrup (Guaifenesin/Dextromethorphan) 5 Ml Syrup 10 Ml PO PRN Q4HRS PRN Proair Hfa Inhaler (Albuterol Sulfate) 8.5 Gm Hfa.aer.ad 2 Puff INH QID PRN Potassium Chloride 10 Meq Capsule.er 20 Meq PO DAILY do not start until 12/11/16 Zyprexa (Olanzapine) 20 Mg Tablet 0.5 Tab PO QHS Reported Oxycodone Hcl 10 Mg Tablet 10 Mg PO Q6HRS PRN Aspir 81 (Aspirin) 81 Mg Tablet.dr 1 Tab PO DAILY Lipitor (Atorvastatin Calcium) 10 Mg Tablet 1 Tab PO QHS Breo Ellipta 200-25 Mcg INH (Fluticasone/Vilanterol) 1 Each Blst.w.dev 1 Puff IH BID Lyrica (Pregabalin) 150 Mg Capsule 1 Cap PO DAILY Prilosec Otc (Omeprazole Magnesium) 20 Mg Tablet.dr 1 Tab PO DAILY Promethazine Hcl 6.25 Mg/5 Ml Syrup 5 Ml PO QID Nitrostat (Nitroglycerin) 0.4 Mg Tab.subl 1 Tab SL UD Tizanidine Hcl 4 Mg Tablet 1 Tab PO TID Flonase Allergy Relief (Fluticasone Propionate) 9.9 Ml [place].susp 2 Sprays NS DAILY Furosemide 20 Mg Tablet 1 Tab PO DAILY Isosorbide Mononitrate Er (Isosorbide Mononitrate) 30 Mg Tab.er.24h 1 Tab PO DAILY Oxycontin (Oxycodone HCl) 20 Mg Tab.er.12h 20 Mg PO BID Vitals/I & O Vital Sign - Last 24 Hours 12/13/16 12/13/16 12/13/16 12/13/16 12:26 15:18 17:43 19:00 Temp 96.4 97.4 96.4 97.4 Pulse 73 72 72 73 Resp 18 18 B/P 114/82 104/75 104/75 100/64 Pulse Ox 97 93 O2 Delivery Room Air Room Air 12/13/16 12/13/16 12/13/16 12/13/16 19:45 20:10 21:02 23:31 Temp 97.4 97.4 Pulse 72 Resp 18 18 B/P 115/71 Pulse Ox 93 96 O2 Delivery Room Air Room Air Room Air Room Air 12/14/16 12/14/16 12/14/16 12/14/16 01:03 03:11 07:20 10:50 Temp 97.4 97.4 Pulse 64 72 Resp 17 18 B/P 109/70 124/81 Pulse Ox 96 93 92 O2 Delivery Room Air Room Air Room Air O2 Flow Rate 1.0 Intake and Output 12/13/16 12/13/16 12/14/16 15:00 23:00 07:00 Intake Total 1260 ml Output Total 450 ml 450 ml 300 ml Balance -450 ml 810 ml -300 ml JHONATAN VALDES MD Dec 14, 2016 12:14
[2016-12-14] MEDS ORDERED: IPRA3AMP NEB (12:17)
[2016-12-14] MEDS ORDERED: PRED20TA PO (12:17)
[2016-12-14] MEDS ORDERED: LEVE500T56 PO (12:17)
--- NOTE | 2016-12-14 13:26 | DS ---
DATE OF DISCHARGE: 12/14/2016 CHIEF COMPLAINT: Chest pain and shortness of air. HISTORY OF PRESENT ILLNESS: The patient is a 61-year-old male who was just recently discharged from [facility] after treatment for congestive heart failure. He had only been home for a few days, but continued to have some symptoms of intermittent chest pain. He also had shortness of breath and a productive cough so he returned to the Emergency Room. Due to the patient's significant cardiac history, cardiology was consulted and he was admitted for further treatment. HOSPITAL COURSE: The patient was admitted and seen in consultation by cardiology. Due to the persistence of his symptoms, Dr. Ferrara recommended a cardiac catheterization. The patient agreed to this and underwent catheterization on 12/11/2016. This showed severe left ventricular dysfunction with an ejection fraction of 15%; only mild nonobstructive coronary artery disease was seen. The patient's chest pain gradually resolved during his hospital stay and did not recur. He was also felt to be experiencing an acute exacerbation of COPD. He was started on antibiotics and Solu-Medrol for treatment of this. Chest x-ray was without acute infiltrate, CTA of the chest showed emphysema but no pulmonary emboli. The patient initially required oxygen to maintain his saturations. His breathing is now much improved. He was able to ambulate in the person today without hypoxia and therefore no oxygen will be ordered at discharge. His has requested a nebulizer machine for home use, this has been ordered along with DuoNeb to use q.i.d. p.r.n. On the CTA of the chest, it was noted that the patient's gallbladder was somewhat enlarged. The patient had complained intermittently of right lower quadrant pain. Due to this, he had an abdominal ultrasound which showed gallstones and some sludge. There was mild diffuse gallbladder wall thickening, but no significant evidence of cholecystitis. General Surgery was consulted. They ordered a hepatobiliary scan which showed no evidence of duct obstruction, but a decreased gallbladder ejection fraction of 23%. The patient's right lower quadrant pain is intermittent and is gradually improving. He would be a high surgical risk and general surgery does not recommend cholecystectomy at this time. The patient is in agreement with this. He is advised a low-fat diet. Surgery may need to be considered in the future if his symptoms worsen. The patient reports a many year history of syncopal episodes or "spells." These can occur at rest or with exertion. He seemed to have a brief episode of this while hospitalized. He was lying in bed and was in sinus rhythm on telemetry. These episodes have been troublesome for him and have led to 2 falls. He had apparently not been seen by a neurologist for many years. There may have been a past diagnosis of a possible seizure disorder, but he has not had medication for this. Dr. Prieto was consulted. A CT of the head was without acute abnormalities. The patient had an EEG, the results of which are pending at this time. Dr. Prieto felt that the patient may be having seizures, but they may also be pseudoseizures consistent with his psychiatric diagnosis. He has started the patient on Keppra and will follow him as an outpatient for this. The patient has history of some mild hyperglycemia. His blood sugars were elevated due to the Solu-Medrol he was receiving, but this should improve as the prednisone is tapered and no further treatment of this is presently indicated. The patient has chronic kidney disease stage III, which is stable on lab. He has chronic pain and has been on his usual oral medications for this. He has bipolar mood disorder, which appears stable with his usual Zyprexa. The patient is much improved and will be discharged to home today. FINAL DIAGNOSES: 1. Severe nonischemic cardiomyopathy with EF 15%. 2. Mild nonobstructive coronary artery disease. 3. Acute exacerbation of chronic obstructive pulmonary disease. 4. History of lung cancer. 5. Cholelithiasis with biliary dyskinesia. 6. Chronic kidney disease, stage III. 7. Chronic pain. 8. Bipolar mood disorder. 9. Seizure disorder. DISCHARGE MEDICATIONS: DuoNeb q.i.d. p.r.n., Keppra 500 mg b.i.d., prednisone 20 mg tablet 3 tablets daily for 3 days, then 2 tablets daily for 3 days, then 1 tablet daily for 3 days, then discontinue; aspirin 81 mg daily, atorvastatin 10 mg daily, carvedilol 6.25 b.i.d., Flonase daily, Breo Ellipta 200/25 one puff b.i.d., furosemide 20 mg daily, Imdur 30 mg daily, nitroglycerin 0.4 mg sublingual p.r.n., Zyprexa 20 mg 1/2 tablet at bedtime, omeprazole 20 mg daily, OxyContin 20 mg b.i.d., oxycodone immediate release 10 mg q. 6 hours p.r.n., potassium 20 mEq daily, Lyrica 150 mg daily, and tizanidine 0.4 mg t.i.d. p.r.n. FOLLOWUP: Followup is with Dr. Sainz within 2 weeks. Follow up with Dr. Prieto and Cardiology as advised. JHONATAN VALDES MD DR: SALUD/aiyana JOB#: [id number] / [id number]
--- NOTE | 2016-12-14 21:26 | EEG ---
DATE OF SERVICE: 12/14/2016 EEG NUMBER: [id number] performed on 12/14/2016. OBJECTIVE: The patient is a 61-year-old male with possible seizures. DESCRIPTION: This is a digital study. Electrodes are placed according to the international 10-20 system. Bipolar and referential montages are available. Activation procedures typically include hyperventilation and intermittent photic stimulation. INTERPRETATION: The waking background consists of 9-10 Hz, 50-100 microvolt activity, symmetrically distributed over parietooccipital regions and reactive to eye opening. Hyperventilation and intermittent photic stimulation are noncontributory. Stage II sleep is achieved with normal electroencephalogram patterns. IMPRESSION: This electroencephalogram with the patient awake and asleep is within normal limits. There is no focal, paroxysmal, or epileptiform activity. Thank you very much for letting us help with the patient's care. RASHMI SORTO MD DR: SEBASTIEN/aiyana JOB#: [id number] / [id number] RASHMI Nova MD, MISTEE MD
== END 2016-12-14 14:20 | disposition home health service (06) | DRG 286 ==
LOC: ER 06:52 → 1 WEST ICU 07:55 → 2 NORTH 19:32
PROVIDERS: ADMIT Family Medicine; ATTEND Family Medicine
PROC: 4A023N7 Measurement of Cardiac Sampling and Pressure, Left Heart, Percutaneous Approach (ICD-10-PCS; principal; 2016-12-11)
PROC: B2111ZZ Fluoroscopy of Multiple Coronary Arteries using Low Osmolar Contrast (ICD-10-PCS; 2016-12-11)
PROC: B2151ZZ Fluoroscopy of Left Heart using Low Osmolar Contrast (ICD-10-PCS; 2016-12-11)
DX: I25.110 Atherosclerotic heart disease of native coronary artery with unstable angina pectoris (principal); J96.00 Acute respiratory failure, unspecified whether with hypoxia or hypercapnia; E87.1 Hypo-osmolality and hyponatremia; I50.22 Chronic systolic (congestive) heart failure; I13.0 Hypertensive heart and chronic kidney disease with heart failure and stage 1 through stage 4 chronic kidney disease, or unspecified chronic kidney disease; J44.1 Chronic obstructive pulmonary disease with (acute) exacerbation; N17.9 Acute kidney failure, unspecified; I42.9 Cardiomyopathy, unspecified; E78.00 Pure hypercholesterolemia, unspecified; E78.5 Hyperlipidemia, unspecified; F31.9 Bipolar disorder, unspecified; F17.200 Nicotine dependence, unspecified, uncomplicated; E11.22 Type 2 diabetes mellitus with diabetic chronic kidney disease; F43.10 Post-traumatic stress disorder, unspecified; G40.909 Epilepsy, unspecified, not intractable, without status epilepticus; G89.29 Other chronic pain; J45.909 Unspecified asthma, uncomplicated; K21.9 Gastro-esophageal reflux disease without esophagitis; K80.20 Calculus of gallbladder without cholecystitis without obstruction; I48.91 Unspecified atrial fibrillation; N18.3 Chronic kidney disease, stage 3 (moderate); R29.6 Repeated falls; E11.649 Type 2 diabetes mellitus with hypoglycemia without coma; M25.512 Pain in left shoulder; R55 Syncope and collapse; F41.9 Anxiety disorder, unspecified; M19.90 Unspecified osteoarthritis, unspecified site; Z87.440 Personal history of urinary (tract) infections; Z82.49 Family history of ischemic heart disease and other diseases of the circulatory system; Z85.118 Personal history of other malignant neoplasm of bronchus and lung; Z87.820 Personal history of traumatic brain injury; Z91.041 Radiographic dye allergy status; Z95.810 Presence of automatic (implantable) cardiac defibrillator; Z87.01 Personal history of pneumonia (recurrent)
CPT/HCPCS: 36415; 36600; 70470; 71010; 71275; 76705; 78226; 80048; 82805; 82947; 84484; 85007; 85027; 87641; 93005; 93458; 94250; 94620; 94640; 95816; 96374; 96375; A9537; C1769; C1892; J1815; J2250; J2805; J2930; J3010; J3490; J7040; J7050; J7620; Q9967; 97535; 99285-25; J7030